=== PATIENT | male | born 1950 | race Caucasian/White ===

== ENCOUNTER 2018-06-20 12:31 | Outpatient (CLI) | payer MEDICARE, OTHER, SELFPAY ==
[2018-06-21 10:23] LABS: PSA, Diagnostic 0.4 ng/ml (0-4.5)
== END 2018-06-20 12:51 ==
PROVIDERS: PCP Family Medicine; Visit Provider Urology
DX: R39.198 Other difficulties with micturition (principal)
CPT/HCPCS: 36415; 84153

== ENCOUNTER 2018-09-20 01:23 | Outpatient (CLI) | payer MEDICARE, OTHER, SELFPAY ==
--- NOTE | 2018-09-20 15:40 | DI.US_ITS ---
SYMPTOM/DIAGNOSIS: MICROHEMATURIA, R31.29 RENAL ULTRASOUND: The kidneys are normal in size and show normal parenchymal thickness and echogenicity. No hydronephrosis is seen. There is a 3.5 by 4.1 by 3.4 cm.,exophytic cyst seen at the upper pole of the right kidney. No calcifications or solid masses are seen in the kidneys. In the bladder, there is a 5.6 by 2.2 by 2.5 cm. mass on the left posterior wall which shows increased vascularity. The prevoid bladder volume measures 212 cc's. There is a 62 cc. postvoid residual. Both ureteral jets were visualized. IMPRESSION: Vascular mass on the left posterior bladder wall. Biopsy is recommended for further evaluation.
[2018-09-20 15:58] LABS: Anion Gap 10.2 mmol/L (3-11); BUN 13 mg/dL (7-18); CO2 26.8 mmol/L (21.0-32.0); CREATININE 1.11 mg/dL (0.70-1.30); Calcium 8.9 mg/dL (8.5-10.1); Chloride 101 mmol/L (98-107); Glucose 109 mg/dL (70-100); Potassium 4.2 mmol/L (3.5-5.1); Sodium 138 mmol/L (136-145)
== END 2018-09-20 01:43 ==
PROVIDERS: PCP Family Medicine; Visit Provider Urology
DX: R31.29 Other microscopic hematuria (principal); N28.1 Cyst of kidney, acquired; N32.9 Bladder disorder, unspecified
CPT/HCPCS: 36415; 76770; 80048

== ENCOUNTER 2018-12-15 00:09 | Outpatient (CLI) | payer MEDICARE, OTHER, SELFPAY ==
[2018-12-15 10:12] LABS: Abs Immature Grans 0.06 k/cumm (0.0-0.09); Absolute Basophil Count 0.02 k/cumm (0.0-0.2); Absolute Eosinophil Count 0.32 k/cumm (0.0-0.7); Absolute Lymphocyte Count 1.43 k/cumm (1.2-3.4); Absolute Monocyte Count 0.96 k/cumm (0.11-0.7); Absolute Neutrophil Count 6.96 k/cumm (1.2-6.7); Basophils % 0.2; Eosinophils % 3.3; HCT 35.5 % (40.0-50.0); Immature Grans % 0.6; Lymphocytes % 14.7; Mean Corp. HGB Concentration 33.8 g/dL (32.0-36.0); Mean Corpuscular Hemoglobin 32.3 pg (27.0-33.0); Mean Corpuscular Volume 95.7 fL (80-95); Mean Platelet Volume 9.3 fL (8.0-11.0); Monocytes % 9.8; Neutrophils % 71.4; Platelet Count 223 x1000/uL (130-400); RBC 3.71 m/cumm (4.50-6.00); White Blood Cell Count 9.75 k/cumm (4.4-10.8)
[2018-12-15 11:15] LABS: ALT 16 U/L (12-78); AST 14 U/L (15-37); Albumin 3.5 g/dL (3.4-5.0); Alkaline Phosphatase 64 U/L (46-116); Anion Gap 6.2 mmol/L (3-11); BUN 30 mg/dL (7-18); Bilirubin, Total 0.4 mg/dL (0.2-1.0); CO2 28.8 mmol/L (21.0-32.0); CREATININE 2.15 mg/dL (0.70-1.30); Calcium 9.3 mg/dL (8.5-10.1); Chloride 102 mmol/L (98-107); Estimated GFR 30.72 (mL/min/1.73m2); Glucose 120 mg/dL (70-100); Magnesium 1.9 mg/dL (1.8-2.4); Potassium 4.9 mmol/L (3.5-5.1); Sodium 137 mmol/L (136-145); Total Protein 6.8 g/dL (6.4-8.2)
== END 2018-12-15 00:29 ==
PROVIDERS: PCP Family Medicine; Visit Provider Internal Medicine
DX: C79.10 Secondary malignant neoplasm of unspecified urinary organs (principal)
CPT/HCPCS: 36415; 80053; 83735; 85025

== ENCOUNTER 2018-12-31 12:03 | Outpatient (CLI) | payer MEDICARE, OTHER, SELFPAY ==
[2018-12-31 12:23] LABS: Abs Immature Grans 0.05 k/cumm (0.0-0.09); Absolute Basophil Count 0.02 k/cumm (0.0-0.2); Absolute Eosinophil Count 0.43 k/cumm (0.0-0.7); Absolute Lymphocyte Count 1.43 k/cumm (1.2-3.4); Absolute Monocyte Count 0.91 k/cumm (0.11-0.7); Absolute Neutrophil Count 5.78 k/cumm (1.2-6.7); Basophils % 0.2; HCT 34.9 % (40.0-50.0); HGB 11.6 g/dL (13.5-17.5); Immature Grans % 0.6; Lymphocytes % 16.6; Mean Corp. HGB Concentration 33.2 g/dL (32.0-36.0); Mean Corpuscular Volume 96.1 fL (80-95); Monocytes % 10.6; Platelet Count 242 x1000/uL (130-400); RBC 3.63 m/cumm (4.50-6.00); RBC Distribution Width 13.2 % (11.8-14.1); White Blood Cell Count 8.62 k/cumm (4.4-10.8)
[2018-12-31 12:59] LABS: ALT 18 U/L (12-78); AST 11 U/L (15-37); Albumin 3.5 g/dL (3.4-5.0); Alkaline Phosphatase 62 U/L (46-116); Anion Gap 8.2 mmol/L (3-11); BUN 23 mg/dL (7-18); Bilirubin, Total 0.4 mg/dL (0.2-1.0); CO2 29.8 mmol/L (21.0-32.0); CREATININE 1.89 mg/dL (0.70-1.30); Chloride 99 mmol/L (98-107); Estimated GFR 35.65 (mL/min/1.73m2); FREE T4 1.12 ng/dL (0.76-1.46); Glucose 115 mg/dL (70-100); Potassium 4.4 mmol/L (3.5-5.1); Sodium 137 mmol/L (136-145); TSH 7.47 uIU/mL (0.358-3.74); Total Protein 7.2 g/dL (6.4-8.2)
--- NOTE | 2018-12-31 14:00 | DI.US_ITS ---
SYMPTOMS/DIAGNOSIS: SWOLLEN LEG, M79.89, METASTATIC UROTHELIAL CARCINOMA, C79.10, ? DVT RIGHT LEG ULTRASOUND: Soft tissue swelling is noted. There is no evidence of DVT. LEFT LEG ULTRASOUND: There is soft tissue swelling and no evidence of DVT.
== END 2018-12-31 12:23 ==
PROVIDERS: PCP Family Medicine; Visit Provider Internal Medicine
DX: C79.10 Secondary malignant neoplasm of unspecified urinary organs (principal); M79.89 Other specified soft tissue disorders; Z79.899 Other long term (current) drug therapy
CPT/HCPCS: 36415; 80053; 84439; 84443; 85025; 93970

== ENCOUNTER 2019-01-09 00:18 | Outpatient (CLI) | payer MEDICARE, OTHER, SELFPAY ==
--- NOTE | 2019-01-09 10:30 | MERGE_ITS ---
*[facility]* *[facility]* [address] [place] [address] Date of study: 01/09/2019 Transthoracic Echocardiography M-mode, complete 2D, complete spectral Doppler, and color Doppler *STUDY CONCLUSIONS* Summary: 1. Left ventricle: The cavity size was normal. Systolic function was normal. The estimated ejection fraction was 60-65%. Some parameters suggest diastolic dysfunction. There was no evidence of elevated ventricular filling pressure by Doppler parameters. 2. Aortic valve: There was very mild stenosis. Peak velocity (S): 1.9m/sec. Mean gradient (S): 8mm Hg. VTI ratio of LVOT to aortic valve: 0.49. Valve area (VTI): 1.6cm^2. 3. Mitral valve: There was mild regurgitation. 4. Left atrium: The atrium was mildly dilated. 5. Right ventricle: The cavity size was normal. Wall thickness was normal. Systolic function was normal. 6. Right atrium: The atrium was mildly dilated. 7. Atrial septum: No defect or patent foramen ovale was identified. 8. Pulmonary arteries: Pulmonary systolic pressure was in the range of 30mm Hg to 40mm Hg. 9. Inferior vena cava: The vessel was patent and normal in size. The respirophasic diameter changes were in the normal range (greater than or equal to 50%), consistent with normal central venous pressure. *PATIENT PRESENTATION* Height: 167.6cm ((66in) ) S/D Pressure: 114 / 63 Weight: 96.6kg ((212.6lb) ) BSA: 2.16m^2 Test start time: 10:30 AM. Test stop time: 11:30 AM. 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 This study was interpreted by [facility]. Pertinent images and digital data are archived for permanent storage and are available for subsequent review. No prior study was available for comparison. Study status: Routine. Transthoracic echocardiography. M-mode, complete 2D, complete spectral Doppler, and color Doppler. A Transthoracic Echocardiogram was performed. Scanning was performed from the parasternal, apical, subcostal, and suprasternal notch acoustic windows. Images were obtained using an [id number] cardiac ultrasound machine. Image quality was adequate. Study completion: The patient tolerated the procedure well. History: PMH: Systolic CHF i50.20 *CARDIAC ANATOMY* Left ventricle: The cavity size was normal. Systolic function was normal. The estimated ejection fraction was 60-65%. The tissue Doppler parameters were normal. Some parameters suggest diastolic dysfunction. There was no evidence of elevated ventricular filling pressure by Doppler parameters. Aortic valve: Trileaflet. Doppler: There was very mild stenosis. There was no regurgitation. VTI ratio of LVOT to aortic valve: 0.49. Valve area (VTI): 1.6cm^2. Indexed valve area (VTI): 0.7cm^2/m^2. Peak velocity ratio of LVOT to aortic valve: 0.52. Valve area (Vmax): 1.7cm^2. Indexed valve area (Vmax): 0.8cm^2/m^2. Mean velocity ratio of LVOT to aortic valve: 0.45. Valve area (Vmean): 1.5cm^2. Indexed valve area (Vmean): 0.7cm^2/m^2. Mean gradient (S): 8mm Hg. Peak gradient (S): 14.2mm Hg. Aorta: Aortic root: The aortic root was normal in size. Ascending aorta: The ascending aorta was at upper normal limits. Mitral valve: Doppler: There was no evidence for stenosis. There was mild regurgitation. Valve area by pressure half-time: 3.4cm^2. Indexed valve area by pressure half-time: 1.6cm^2/m^2. Peak gradient (D): 3.1mm Hg. Left atrium: The atrium was mildly dilated. Atrial septum: No defect or patent foramen ovale was identified. Right ventricle: The cavity size was normal. Wall thickness was normal. Systolic function was normal. Pulmonic valve: Doppler: There was no evidence for stenosis. There was mild regurgitation. Peak gradient (S): 4.3mm Hg. Tricuspid valve: Doppler: There was mild regurgitation. Pulmonary artery: Poorly visualized. Pulmonary systolic pressure was in the range of 30mm Hg to 40mm Hg. Right atrium: The atrium was mildly dilated. Pericardium: There was no pericardial effusion. Systemic veins: Inferior vena cava: Well visualized. The vessel was patent and normal in size. The respirophasic diameter changes were in the normal range (greater than or equal to 50%), consistent with normal central venous pressure. Baseline ECG: Normal sinus rhythm. Measurements Left ventricle Value Reference LV ID, ED, PLAX 5.4 cm 3.5 - 6.0 LV ID, ES, PLAX 3.6 cm 2.1 - 4.0 LV PW thickness, ED, PLAX 0.9 cm LV end-diastolic volume, 1-p A2C 117 ml LV ejection fraction, 1-p A2C 65 % LV end-diastolic volume, 1-p A4C 117 ml LV ejection fraction, 1-p A4C 60 % LV e', lateral 0.094 m/sec LV E/e', lateral 9 LV e', medial 0.1 m/sec LV E/e', medial 9 LV e', average 0.097 m/sec LV E/e', average 9 Ventricular septum Value Reference IVS thickness, ED, PLAX 0.8 cm LVOT Value Reference LVOT ID, A-P 2.0 cm LVOT area 3.2 cm^2 LVOT peak velocity, S 0.98 m/sec LVOT mean velocity, S 0.61 m/sec LVOT VTI, S 19.9 cm LVOT peak gradient, S 3.8 mm Hg LVOT mean gradient, S 1.8 mm Hg Stroke volume (SV), LVOT DP 64 ml Stroke index (SV/bsa), LVOT DP 30 ml/m^2 Aortic valve Value Reference Aortic valve peak velocity, S 1.9 m/sec Aortic valve mean velocity, S 1.35 m/sec Aortic valve VTI, S 41.0 cm Aortic mean gradient, S 8 mm Hg Aortic peak gradient, S 14.2 mm Hg VTI ratio, LVOT/AV 0.49 Aortic valve area, VTI 1.6 cm^2 Velocity ratio, peak, LVOT/AV 0.52 Aortic valve area, peak velocity 1.7 cm^2 Velocity ratio, mean, LVOT/AV 0.45 Aortic valve area, mean velocity 1.5 cm^2 Aortic valve area/bsa, mean velocity 0.7 cm^2/m^2 Aorta Value Reference Aortic root ID, ED 3.4 cm Ascending aorta ID, A-P, S 3.5 cm Left atrium Value Reference LA ID, A-P, ES 3.6 cm LA ID/bsa, A-P 1.7 cm/m^2 <=2.2 LA area, ES, A4C (H) 24.5 cm^2 8.8 - 23.4 LA volume/bsa, ES, 1-p A4C 45 ml/m^2 LA/aortic root ratio 1.05 Mitral valve Value Reference Mitral E-wave peak velocity 0.88 m/sec Mitral A-wave peak velocity 1.19 m/sec Mitral deceleration time 222 ms 150 - 230 Mitral pressure half-time 64 ms Mitral peak gradient, D 3.1 mm Hg Mitral E/A ratio, peak 0.74 Mitral valve area, PHT, DP 3.4 cm^2 Tricuspid valve Value Reference Tricuspid regurg peak velocity 2.8 m/sec Tricuspid peak RV-RA gradient 32.2 mm Hg Right atrium Value Reference RA area, ES, A4C (H) 22.5 cm^2 8.3 - 19.5 Pulmonic valve Value Reference Pulmonic peak gradient, S 4.3 mm Hg Legend: (L) and (H) an values outside specified reference range. I have personally reviewed the images and have reviewed and edited the reported findings. Electronically signed by Ayo Nova MD 01/09/2019 17:27
== END 2019-01-09 00:38 ==
PROVIDERS: PCP Family Medicine; Visit Provider Internal Medicine
DX: I50.20 Unspecified systolic (congestive) heart failure (principal); I51.7 Cardiomegaly; I35.0 Nonrheumatic aortic (valve) stenosis
CPT/HCPCS: 93306

== ENCOUNTER 2019-01-21 10:15 | Outpatient (CLI) | payer MEDICARE, OTHER, SELFPAY ==
[2019-01-21 10:49] LABS: Abs Immature Grans 0.06 k/cumm (0.0-0.09); Absolute Basophil Count 0.02 k/cumm (0.0-0.2); Absolute Eosinophil Count 0.42 k/cumm (0.0-0.7); Absolute Lymphocyte Count 1.26 k/cumm (1.2-3.4); Absolute Monocyte Count 0.84 k/cumm (0.11-0.7); Absolute Neutrophil Count 6.45 k/cumm (1.2-6.7); Basophils % 0.2; Eosinophils % 4.6; HCT 35.5 % (40.0-50.0); HGB 11.4 g/dL (13.5-17.5); Immature Grans % 0.7; Lymphocytes % 13.9; Mean Corp. HGB Concentration 32.1 g/dL (32.0-36.0); Mean Corpuscular Hemoglobin 31.1 pg (27.0-33.0); Mean Corpuscular Volume 96.7 fL (80-95); Monocytes % 9.3; Neutrophils % 71.3; Platelet Count 217 x1000/uL (130-400); RBC 3.67 m/cumm (4.50-6.00); RBC Distribution Width 13.3 % (11.8-14.1); White Blood Cell Count 9.05 k/cumm (4.4-10.8)
[2019-01-21 11:57] LABS: ALT 16 U/L (12-78); AST 11 U/L (15-37); Albumin 3.5 g/dL (3.4-5.0); Alkaline Phosphatase 58 U/L (46-116); Anion Gap 8.5 mmol/L (3-11); BUN 19 mg/dL (7-18); Bilirubin, Total 0.4 mg/dL (0.2-1.0); CO2 27.5 mmol/L (21.0-32.0); CREATININE 1.51 mg/dL (0.70-1.30); Calcium 9.1 mg/dL (8.5-10.1); Chloride 100 mmol/L (98-107); Estimated GFR 46.18 (mL/min/1.73m2); FREE T4 1.18 ng/dL (0.76-1.46); Glucose 110 mg/dL (70-100); Potassium 4.6 mmol/L (3.5-5.1); Sodium 136 mmol/L (136-145); TSH 5.42 uIU/mL (0.358-3.74); Total Protein 7.1 g/dL (6.4-8.2)
== END 2019-01-21 10:35 ==
PROVIDERS: PCP Family Medicine; Visit Provider Internal Medicine
DX: Z79.899 Other long term (current) drug therapy (principal); C79.10 Secondary malignant neoplasm of unspecified urinary organs
CPT/HCPCS: 36415; 80053; 84439; 84443; 85025

== ENCOUNTER 2019-01-29 07:06 | Day surgery (SDC) | payer MEDICARE, OTHER, SELFPAY ==
--- NOTE | 2019-01-29 06:40 | HPE_ITS ---
Date of service: 01/29/19 Time of Service: 08:48 Assessment and Plan (1) Bladder cancer: Current visit: No Status: Acute A\\ Metastatic Bladder cancer. Patient starting Chemotherapy P\\ Medi-port placement right or left subclavian vein. Risks, benefits, complications were reviewed with him. Complications include but are not limited to bleeding, pain, seroma, hematoma, malfunction, pneumothorax, wound dehiscence and injury to vessels. Questions were entertained and answered to his satisfaction and he wishes to proceed. No guarantees were given or implied. Qualifiers: Bladder location: unspecified site Qualified Code(s): C67.9 - Malignant neoplasm of bladder, unspecified History of Present Illness Narrative: Mr. Miller is a 68-year-old gentleman who was diagnosed with bladder cancer. He underwent a TURBT on October 18, 2018 and pathology was consistent with high-grade papillary urothelial carcinoma with extensive squamous differentiation invasive into muscularis propria and focally suspicious for pericystic soft tissue invasion. He also has metastatic disease to his back and lungs and has been short of breath. He is now on oxygen. He has started chemotherapy but they are having a hard time drawing blood and we have been asked by his oncologist to place a port. Review of Systems Constitutional Denies fever(s) Cardiovascular Denies chest pain, Denies chest pain at rest, Denies rapid heart rate, Denies palpitations, Denies dyspnea and Denies dyspnea on exertion Respiratory Denies cough, Denies dyspnea and Denies dyspnea on exertion Endocrine Denies palpitations [facility] Medical History Hx of congestive heart failure (Acute) Metastatic urothelial carcinoma (Acute) Arthritis of knee Arthritis of shoulder region, left, degenerative Back pain DDD (degenerative disc disease), lumbosacral GERD (gastroesophageal reflux disease) Headache Hypertension Osteoarthritis of spine with radiculopathy, lumbar region Sciatica Spinal stenosis of lumbar region Surgical History History of transurethral destruction of bladder lesion (Acute) Hx of nephrostomy (Acute) Vasectomy Family History Mother Blood clots in brain Father Heart disease Sister Cancer Sister No problems noted. Sister No problems noted. Sister No problems noted. Sister No problems noted. Brother No problems noted. Brother No problems noted. Brother No problems noted. Brother No problems noted. Brother No problems noted. Daughter No problems noted. Daughter No problems noted. Daughter No problems noted. Social History Smoking/Tobacco Use Status: Current every day Tobacco Type: cigarettes Tobacco: How many years used: 50 Alcohol Intake: never Drug use: Never Substance use type: does not use Do you feel safe at home: Yes Do you feel safe in your relationship?: Yes Meds Home Medications Medication Instructions Recorded Confirmed Type diclofenac sodium 50 mg PO TID 10/22/15 01/29/19 History lisinopril 40 mg PO DAILY 10/22/15 01/29/19 History metoprolol succinate 50 mg PO BID 10/22/15 01/29/19 History aspirin 325 mg PO DAILY 01/15/18 01/29/19 History oxycodone 15 mg PO QID PRN 01/15/18 01/29/19 History gabapentin 1 tab PO TID 30 Days #90 tab 02/06/18 01/29/19 Rx fentanyl 1 patch TRANSDERMAL Q72H 01/27/19 01/29/19 History omeprazole 40 mg PO DAILY 01/27/19 01/29/19 History prochlorperazine maleate 10 mg PO Q6H PRN 01/27/19 01/29/19 History sennosides-docusate sodium 1 tab PO BID PRN 01/27/19 01/29/19 History [Senexon-S] Allergies Allergy/AdvReac Type Severity Reaction Status Date / Time lisinopril AdvReac Unknown Cough Unverified 01/29/19 07:22 Exam Const General: cooperative, comfortable and no acute distress Resp Effort & Inspection: normal respiratory effort Auscultation: clear to auscultation bilaterally Cardio Rate: regular rate Rhythm: regular rhythm
--- NOTE | 2019-01-29 06:40 | W.PM.OP ---
Date of service: 01/29/19 Time of Service: 09:46 Operative Note DATE OF PROCEDURE: 01/29/19 PRE-OP DIAGNOSIS: Bladder Cancer POST-OP DIAGNOSIS: same PROCEDURE: Attempted left and right Subclavian vein Medi-port placement SURGEON: Yanci Iqbal ANESTHESIA: other (General/ ASA /) PATHOLOGY: none sent COMPLICATIONS: None Patient was transported to: same day Patient's condition: stable Indications: 68 year old with Bladder Cancer who will be getting chemotherapy treatments. Medi-port was recommended. Risks, benefits and complications were reviewed and he wished to proceed. No guarantees were given or implied. Findings: Thick and deep calvicles. Resistance to the wire on the left. Procedure Description: After informed consent was obtained the patient was taken to the operating room placed in the supine position. Monitors were applied and he was placed under MAC sedation. A timeout was done in the patient's name, date of , procedure to be done, site, antibiotic prophylaxis, DVT prophylaxis were reviewed. Fire risk was assessed. The right and left chest were prepped and draped in a sterile surgical fashion. Next 1% lidocaine mixed with half percent Marcaine with epinephrine was injected below the left clavicle. Using the finder needle after a few attempts the subclavian vein was cannulated with a needle. On 3 different attempts I could not get the wire to easily pass without resistance. After 3 attempts on the left side I tried to cannulate the right subclavian vein on several occasions and was unable to do so. The procedure was aborted and the patient was taken back to same-day surgery. A chest x-ray was ordered to make sure that I did not cause a pneumothorax. The chest x-ray is pending at this time. Sponge, needle and sharp count was correct at the end of the case.
--- NOTE | 2019-01-29 06:53 | W.PM.DSUDISC ---
Discharge Plan Disposition Patient Disposition: HOME Condition: Good Discharge Details Reason For Visit: Medi-port placement Attending Provider: Yanci Iqbal Primary Care Provider: Delonte Turpin Home Meds and New Rx's Prescriptions: Continued aspirin 325 MG tablet 325 mg PO DAILY RF: 0 oxycodone 10 MG tablet 15 mg PO QID PRNRF: 0 gabapentin 600 MG tablet 1 tab PO TID 30 Days Qty: 90 RF: 3 metoprolol succinate 50 MG tablet extended release 24 hr 50 mg PO BID RF: 0 diclofenac sodium 50 MG tablet,delayed release (DR/EC) 50 mg PO TID RF: 0 lisinopril 40 MG tablet 40 mg PO DAILY RF: 0 sennosides-docusate sodium [Senexon-S] 8.6-50 mg Tablet 1 tab PO BID PRNRF: 0 prochlorperazine maleate 10 mg Tablet 10 mg PO Q6H PRNRF: 0 omeprazole 40 mg Capsule,Delayed Release(Dr/Ec) 40 mg PO DAILY RF: 0 fentanyl 25 mcg/hr Patch 72 Hour 1 patch TRANSDERMAL Q72H RF: 0 Discharge Instructions Stand Alone Forms: DSU Post op Instructions, Kyler Lawrence (DSU) Activity:: Activity as Tolerated Diet:: As Tolerated Discharge Orders Discharge Orders: Discharge Order (Routine); Ordered 01/29/19 Ordered By: Yanci Iqbal DS: Diagnosis Discharge Diagnosis (1) Bladder cancer: Status: Acute
[2019-01-29 07:31] VITALS: BP 119/62; PULSE 82; RESP 20; TEMP 36.3; O2SAT 95
[2019-01-29] MEDS: Lactated Ringers 1,000 ML 80 ML IV (07:50)
[2019-01-29] MEDS: ceFAZolin 2 GM/50 ML BAG IVPB (09:05)
[2019-01-29] MEDS: Lidocaine 2% Multi-Dose 50 ML VIAL (09:12)
--- NOTE | 2019-01-29 10:08 | DI.RAD_ITS ---
SYMPTOM/DIAGNOSIS: ATTEMPTED PORT PLACEMENT, ? PNEUMOTHORAX PORTABLE AP CHEST: Heart size and pulmonary vasculature are within normal limits. The lungs are clear. No pneumothorax is identified. No effusions or infiltrates are present. IMPRESSION: No acute pulmonary process. No evidence of a pneumothorax.
[2019-01-29 10:25] VITALS: BP 135/69; PULSE 75; RESP 18; TEMP 36; O2SAT 97
== END 2019-01-29 11:02 | disposition home or self-care (01) ==
LOC: SUR 07:06
PROVIDERS: PCP Family Medicine; Visit Provider Surgery
PROC: (CPT 36561; principal; 2019-01-29 08:30)
DX: C67.9 Malignant neoplasm of bladder, unspecified (principal); Z53.8 Procedure and treatment not carried out for other reasons; I10 Essential (primary) hypertension; K21.9 Gastro-esophageal reflux disease without esophagitis
CPT/HCPCS: 36561; NC; 71045; J0690; J2250; J3010

== ENCOUNTER 2019-02-11 10:30 | Outpatient (CLI) | payer MEDICARE, OTHER, SELFPAY ==
[2019-02-11 10:54] LABS: Abs Immature Grans 0.05 k/cumm (0.0-0.09); Absolute Basophil Count 0.02 k/cumm (0.0-0.2); Absolute Eosinophil Count 0.44 k/cumm (0.0-0.7); Absolute Lymphocyte Count 1.24 k/cumm (1.2-3.4); Absolute Monocyte Count 0.99 k/cumm (0.11-0.7); Absolute Neutrophil Count 6.21 k/cumm (1.2-6.7); Basophils % 0.2; Eosinophils % 4.9; HCT 35.6 % (40.0-50.0); HGB 11.8 g/dL (13.5-17.5); Immature Grans % 0.6; Lymphocytes % 13.9; Mean Corp. HGB Concentration 33.1 g/dL (32.0-36.0); Mean Corpuscular Hemoglobin 31.8 pg (27.0-33.0); Mean Platelet Volume 9.2 fL (8.0-11.0); Monocytes % 11.1; Neutrophils % 69.3; Platelet Count 230 x1000/uL (130-400); RBC 3.71 m/cumm (4.50-6.00); RBC Distribution Width 13.4 % (11.8-14.1); White Blood Cell Count 8.95 k/cumm (4.4-10.8)
[2019-02-11 11:19] LABS: ALT 19 U/L (12-78); AST 13 U/L (15-37); Albumin 3.5 g/dL (3.4-5.0); Alkaline Phosphatase 57 U/L (46-116); Anion Gap 9.8 mmol/L (3-11); BUN 14 mg/dL (7-18); Bilirubin, Total 0.3 mg/dL (0.2-1.0); CO2 25.2 mmol/L (21.0-32.0); CREATININE 1.36 mg/dL (0.70-1.30); Calcium 9.1 mg/dL (8.5-10.1); Chloride 101 mmol/L (98-107); Estimated GFR 52.11 (mL/min/1.73m2); FREE T4 1.28 ng/dL (0.76-1.46); Glucose 119 mg/dL (70-100); Potassium 4.6 mmol/L (3.5-5.1); Sodium 136 mmol/L (136-145); TSH 5.27 uIU/mL (0.358-3.74); Total Protein 7.3 g/dL (6.4-8.2)
== END 2019-02-11 10:50 ==
PROVIDERS: PCP Family Medicine; Visit Provider Internal Medicine
DX: C79.10 Secondary malignant neoplasm of unspecified urinary organs (principal); Z79.899 Other long term (current) drug therapy
CPT/HCPCS: 36415; 80053; 84439; 84443; 85025

== ENCOUNTER 2019-03-04 10:18 | Outpatient (CLI) | payer MEDICARE, OTHER, SELFPAY ==
[2019-03-04 11:06] LABS: Abs Immature Grans 0.06 k/cumm (0.0-0.09); Absolute Basophil Count 0.02 k/cumm (0.0-0.2); Absolute Lymphocyte Count 1.36 k/cumm (1.2-3.4); Absolute Monocyte Count 0.96 k/cumm (0.11-0.7); Absolute Neutrophil Count 6.38 k/cumm (1.2-6.7); Basophils % 0.2; Eosinophils % 4.4; HCT 37.2 % (40.0-50.0); HGB 12.3 g/dL (13.5-17.5); Immature Grans % 0.7; Lymphocytes % 14.8; Mean Corp. HGB Concentration 33.1 g/dL (32.0-36.0); Mean Corpuscular Hemoglobin 31.5 pg (27.0-33.0); Mean Corpuscular Volume 95.1 fL (80-95); Mean Platelet Volume 9.6 fL (8.0-11.0); Monocytes % 10.5; Neutrophils % 69.4; Platelet Count 248 x1000/uL (130-400); RBC 3.91 m/cumm (4.50-6.00); RBC Distribution Width 13.5 % (11.8-14.1); White Blood Cell Count 9.18 k/cumm (4.4-10.8)
[2019-03-04 12:49] LABS: ALT 20 U/L (12-78); AST 15 U/L (15-37); Albumin 3.6 g/dL (3.4-5.0); Alkaline Phosphatase 61 U/L (46-116); Anion Gap 7.5 mmol/L (3-11); BUN 20 mg/dL (7-18); Bilirubin, Total 0.3 mg/dL (0.2-1.0); CO2 26.5 mmol/L (21.0-32.0); CREATININE 1.27 mg/dL (0.70-1.30); Chloride 103 mmol/L (98-107); FREE T4 1.24 ng/dL (0.76-1.46); Glucose 110 mg/dL (70-100); Potassium 4.6 mmol/L (3.5-5.1); Sodium 137 mmol/L (136-145); TSH 5.02 uIU/mL (0.358-3.74); Total Protein 7.2 g/dL (6.4-8.2)
== END 2019-03-04 10:38 ==
PROVIDERS: PCP Family Medicine; Visit Provider Internal Medicine
DX: C79.10 Secondary malignant neoplasm of unspecified urinary organs (principal); Z79.899 Other long term (current) drug therapy
CPT/HCPCS: 36415; 80053; 84439; 84443; 85025

== ENCOUNTER 2019-03-25 11:26 | Outpatient (CLI) | payer MEDICARE, OTHER, SELFPAY ==
[2019-03-25 11:49] LABS: Abs Immature Grans 0.04 k/cumm (0.0-0.09); Absolute Basophil Count 0.02 k/cumm (0.0-0.2); Absolute Lymphocyte Count 1.28 k/cumm (1.2-3.4); Absolute Monocyte Count 0.73 k/cumm (0.11-0.7); Absolute Neutrophil Count 5.93 k/cumm (1.2-6.7); Basophils % 0.2; Eosinophils % 4.8; HCT 35.4 % (40.0-50.0); HGB 11.9 g/dL (13.5-17.5); Immature Grans % 0.5; Lymphocytes % 15.2; Mean Corp. HGB Concentration 33.6 g/dL (32.0-36.0); Mean Corpuscular Hemoglobin 31.7 pg (27.0-33.0); Mean Corpuscular Volume 94.4 fL (80-95); Mean Platelet Volume 9.2 fL (8.0-11.0); Monocytes % 8.7; Neutrophils % 70.6; Platelet Count 220 x1000/uL (130-400); RBC 3.75 m/cumm (4.50-6.00); RBC Distribution Width 13.6 % (11.8-14.1)
[2019-03-25 12:14] LABS: ALT 16 U/L (12-78); AST 13 U/L (15-37); Albumin 3.6 g/dL (3.4-5.0); Alkaline Phosphatase 68 U/L (46-116); Anion Gap 12.1 mmol/L (3-11); BUN 17 mg/dL (7-18); Bilirubin, Total 0.4 mg/dL (0.2-1.0); CO2 24.9 mmol/L (21.0-32.0); CREATININE 1.32 mg/dL (0.70-1.30); Calcium 8.9 mg/dL (8.5-10.1); Chloride 103 mmol/L (98-107); Estimated GFR 53.94 (mL/min/1.73m2); FREE T4 1.22 ng/dL (0.76-1.46); Glucose 132 mg/dL (70-100); Potassium 4.2 mmol/L (3.5-5.1); Sodium 140 mmol/L (136-145); TSH 3.38 uIU/mL (0.358-3.74); Total Protein 7.3 g/dL (6.4-8.2)
== END 2019-03-25 11:46 ==
PROVIDERS: PCP Family Medicine; Visit Provider Internal Medicine
DX: Z79.899 Other long term (current) drug therapy (principal); C79.10 Secondary malignant neoplasm of unspecified urinary organs
CPT/HCPCS: 36415; 80053; 84439; 84443; 85025

== ENCOUNTER 2019-04-15 07:01 | Outpatient (CLI) | payer MEDICARE, OTHER, SELFPAY ==
[2019-04-15 07:30] LABS: Abs Immature Grans 0.07 k/cumm (0.0-0.09); Absolute Eosinophil Count 0.34 k/cumm (0.0-0.7); Absolute Lymphocyte Count 0.85 k/cumm (1.2-3.4); Basophils % 0.1; Eosinophils % 2.3; HGB 12.4 g/dL (13.5-17.5); Immature Grans % 0.5; Lymphocytes % 5.8; Mean Corp. HGB Concentration 33.5 g/dL (32.0-36.0); Mean Corpuscular Hemoglobin 31.7 pg (27.0-33.0); Mean Corpuscular Volume 94.6 fL (80-95); Monocytes % 8.2; Neutrophils % 83.1; Platelet Count 216 x1000/uL (130-400); RBC 3.91 m/cumm (4.50-6.00); RBC Distribution Width 13.5 % (11.8-14.1); White Blood Cell Count 14.58 k/cumm (4.4-10.8)
[2019-04-15 07:36] LABS: Absolute Basophil Count 0.01 k/cumm (0.0-0.2); Absolute Neutrophil Count 12.12 k/cumm (1.2-6.7)
[2019-04-15 07:53] LABS: ALT 18 U/L (12-78); AST 13 U/L (15-37); Albumin 3.7 g/dL (3.4-5.0); Alkaline Phosphatase 77 U/L (46-116); Anion Gap 8.3 mmol/L (3-11); BUN 19 mg/dL (7-18); Bilirubin, Total 0.5 mg/dL (0.2-1.0); CO2 28.7 mmol/L (21.0-32.0); CREATININE 1.28 mg/dL (0.70-1.30); Calcium 9.2 mg/dL (8.5-10.1); Chloride 102 mmol/L (98-107); Estimated GFR 55.89 (mL/min/1.73m2); FREE T4 1.24 ng/dL (0.76-1.46); Glucose 128 mg/dL (70-100); Potassium 4.4 mmol/L (3.5-5.1); Sodium 139 mmol/L (136-145); TSH 2.76 uIU/mL (0.358-3.74); Total Protein 7.7 g/dL (6.4-8.2)
== END 2019-04-15 07:21 ==
PROVIDERS: PCP Family Medicine; Visit Provider Internal Medicine
DX: C79.10 Secondary malignant neoplasm of unspecified urinary organs (principal); Z79.899 Other long term (current) drug therapy
CPT/HCPCS: 36415; 80053; 84439; 84443; 85025

== ENCOUNTER 2019-04-15 17:04 | Emergency (ER) | payer MEDICARE, OTHER, SELFPAY ==
[2019-04-15 17:10] VITALS: BP 115/59; PULSE 88; RESP 20; TEMP 37.8; O2SAT 96
[2019-04-15 17:11] VITALS: O2SAT 97
[2019-04-15 17:16] VITALS: BP 109/66; PULSE 92; O2SAT 97
[2019-04-15 17:39] LABS: Bilirubin Negative (Negative); Blood Moderate (Negative); Clarity Cloudy (Clear); Glucose Negative (Negative); Ketones Negative (Negative); Leukocyte Esterase Large (Negative); Nitrite Positive (Negative); Specific Gravity 1.015 (1.005-1.025)
[2019-04-15 17:51] LABS: Bacteria Many HPF (Negative); C & S Indicated? Yes; Casts Negative LPF (Negative); Crystals Negative HPF (Negative); Epithelial Cells Few HPF (Negative); Mucus Negative (Negative); Other Cells Negative (Negative); RBC >50 (0-2); WBC >50 HPF (0-5)
[2019-04-15 17:52] LABS: Abs Immature Grans 0.03 k/cumm (0.0-0.09); Absolute Eosinophil Count 0.12 k/cumm (0.0-0.7); Absolute Lymphocyte Count 1.19 k/cumm (1.2-3.4); Basophils % 0.1; Eosinophils % 0.9; HCT 33.5 % (40.0-50.0); HGB 11.2 g/dL (13.5-17.5); Immature Grans % 0.2; Lymphocytes % 8.6; Mean Corp. HGB Concentration 33.4 g/dL (32.0-36.0); Mean Corpuscular Hemoglobin 31.7 pg (27.0-33.0); Mean Corpuscular Volume 94.9 fL (80-95); Mean Platelet Volume 9.8 fL (8.0-11.0); Monocytes % 8.3; Neutrophils % 81.9; Platelet Count 203 x1000/uL (130-400); RBC 3.53 m/cumm (4.50-6.00); RBC Distribution Width 13.8 % (11.8-14.1); White Blood Cell Count 13.78 k/cumm (4.4-10.8)
[2019-04-15 17:53] LABS: Absolute Basophil Count 0.01 k/cumm (0.0-0.2); Absolute Monocyte Count 1.14 k/cumm (0.11-0.7); Absolute Neutrophil Count 11.29 k/cumm (1.2-6.7)
[2019-04-15] MEDS: Acetaminophen 325 MG TAB 650 MG PO (17:55)
--- NOTE | 2019-04-15 18:06 | DI.RAD_ITS ---
SYMPTOM/DIAGNOSIS: FEVER, ON CHEMO PA AND LATERAL CHEST: The lungs are well expanded and free of infiltrate. The cardiovascular structures are intact. SUMMARY: No evidence of acute cardiopulmonary disease.
[2019-04-15 18:09] LABS: ALT 17 U/L (12-78); AST 10 U/L (15-37); Albumin 3.2 g/dL (3.4-5.0); Alkaline Phosphatase 67 U/L (46-116); Anion Gap 9.7 mmol/L (3-11); BUN 20 mg/dL (7-18); Bilirubin, Total 0.5 mg/dL (0.2-1.0); CO2 26.3 mmol/L (21.0-32.0); CREATININE 1.35 mg/dL (0.70-1.30); Calcium 8.7 mg/dL (8.5-10.1); Chloride 103 mmol/L (98-107); Estimated GFR 52.56 (mL/min/1.73m2); Glucose 124 mg/dL (70-100); Magnesium 1.8 mg/dL (1.8-2.4); Potassium 4.4 mmol/L (3.5-5.1); Sodium 139 mmol/L (136-145); Total Protein 6.9 g/dL (6.4-8.2)
--- NOTE | 2019-04-15 19:01 | DI.VRAD_ITS ---
EXAM: XR Chest, 2 Views EXAM DATE/TIME: 04/15/2019 6:07 PM CLINICAL HISTORY: 68 years old, male; Other: Fever, on chemo TECHNIQUE: Imaging protocol: XR of the chest, 2 views. COMPARISON: CR XR PORTABLE CHEST AP POST LINE 01/29/2019 9:57 AM FINDINGS: Lungs: Unremarkable. No consolidation. Pleural space: Unremarkable. No pleural effusion. No pneumothorax. Heart/Mediastinum: Unremarkable. No cardiomegaly. Bones/joints: Unremarkable. IMPRESSION: No infiltrates or effusions. Dictated and Authenticated by: Graham Aguilar MD. Ordering:HASEEB Telles MD
--- NOTE | 2019-04-15 19:18 | ED.GENADUL_ITS ---
Discharge Plan Disposition Patient Disposition: HOME Condition: Stable Discharge Details Chief Complaint: Fever Clinical Impression: Urinary tract infection Primary Care Provider: Delonte Turpin ED Provider: Ayo Garber Home Meds and New Rx's Prescriptions: New levofloxacin 750 mg tablet 750 mg PO DAILY Qty: 7 RF: 0 No Action oxycodone 10 MG tablet 15 mg PO Q4H PRN PRNRF: 0 metoprolol succinate 50 MG tablet extended release 24 hr 50 mg PO BID RF: 0 diclofenac sodium 50 MG tablet,delayed release (DR/EC) 50 mg PO TID RF: 0 lisinopril 40 MG tablet 40 mg PO DAILY RF: 0 sennosides-docusate sodium [Senexon-S] 8.6-50 mg Tablet 1 tab PO BID PRNRF: 0 prochlorperazine maleate 10 mg Tablet 10 mg PO Q6H PRNRF: 0 tamsulosin 0.4 mg Capsule 0.4 mg PO DAILY RF: 0 amlodipine 10 mg Tablet 10 mg PO DAILY RF: 0 morphine 30 mg Tablet 30 mg PO Q8H PRNRF: 0 esomeprazole magnesium 40 mg Capsule,Delayed Release(Dr/Ec) 40 mg PO DAILY RF: 0 albuterol sulfate 90 mcg/actuation Hfa Aerosol Inhaler 2 puff INHALATION QID PRNRF: 0 finasteride 5 mg Tablet 5 mg PO DAILY RF: 0 Discharge Instructions Additional Instructions: you were found to have a urinary tract infection urology at [facility] did not feel your nephrostomy tube needed to be changed follow up with your primary care provider within a week if you have severe pain, feel more ill or persistent vomit return to the emergency department Discharge Data Discharge Date/Time-TO BE ENTERED AT DEPARTURE: 04/16/19 00:43 Medical Decision Making <Elfego Strauss MD - Last Filed: 04/20/19 11:26> 8:00p --68-year-old male with history of bladder cancer with metastasis, on chemotherapy, status post nephrostomy tube placement on the left, here with fever and dysuria. Patient is febrile. He is not tachycardic and is normo tensive. Consider neutropenic fever versus urinary tract infection/pyelonephritis versus other. Patient also noting that he is having some drainage from around the nephrostomy tube which I think is likely related to the fact that 1 of the valves was in close position. This was opened by nursing. I obtained and reviewed outside hospital records including progress note from Rosalie Gotti 03/25/2019 that confirms pathology consistent with high-grade papillary urothelial carcinoma with extensive squamous differentiation invasive into muscularis propria and focally suspicious for pericystic soft tissue invasion and underwent nephrostomy tube placement 12/25/2018. Labs reviewed and urinalysis consistent with urinary tract infection. Leukocytosis noted. Plan at this time is to perform CT of the abdomen and pelvis to assess for pyelonephritis. Consider also obtaining urine specimen from the percutaneous nephrostomy tube. Signout plan was discussed with Dr. Garber who accepts the patient in signout and will determine final disposition. Medical Records Medical records reviewed: Yes I reviewed the patient's medical records. Lab Data Lab results reviewed: Yes I reviewed the patient's lab results. <Ayo Garber MD - Last Filed: 04/16/19 00:31> pt's ct shows nephrostomy tube in place and no evidence of kidney infection. He remains stable and feels well enough to try and go home and wants to go home. I advised him I would like to discuss his care with urology prior to d/c to see if his nephrostomy tube needs to be changed still waiting for [facility], pt remains stable spoke with Dr. Pa from [facility] who advised nephrostomy tube doesn't need to be changed or addressed if it is draining and he can be managed with either oral or iv abx depending on his clinical status. He remains stable here and has no complaints, hd stable so feel he can be tx'd with oral abx. Will d/c home advised f/u with his oncologist and pcp and return precautions given Imaging Data Radiologic Study: Attestation: I personally reviewed and interpreted this imaging study as follows: Imaging: CT Scan Radiologist's impression: IMPRESSION: 1. Left sided percutaneous nephroureterostomy in place. Urinary bladder mass. Aneurysmal and atherosclerotic infrarenal abdominal aorta, no rupture or leak. 2. There are a few prominent mesenteric lymph nodes, some of them slightly enlarged up to 12 mm in short axis, image 47. HPI <Elfego Strauss MD - Last Filed: 04/20/19 11:26> General Mode of arrival: ambulatory . Date/Time Provider Initiated Documentation: 04/15/19 17:37 . Limitations to Documentation: no limitations . Information obtained by: patient . HPI Narrative: 68-year-old male with history of bladder cancer, on chemotherapy, presents with chief complaint of fever. Fever noticed today. Fever mild to moderate. No modifiers. He has associated fatigue over the past couple days. Patient has a left nephrostomy tube but continues to make urine intermittently. He states that recently when he urinates through his penis he has had some dysuria. Patient denies rash. No cough. Related Data Home Medications Medication Instructions Recorded Confirmed diclofenac sodium 50 mg PO TID 10/22/15 04/15/19 lisinopril 40 mg PO DAILY 10/22/15 04/15/19 metoprolol succinate 50 mg PO BID 10/22/15 04/15/19 oxycodone 15 mg PO Q4H PRN PRN 01/15/18 04/15/19 prochlorperazine maleate 10 mg PO Q6H PRN 01/27/19 04/15/19 sennosides-docusate sodium 1 tab PO BID PRN 01/27/19 04/15/19 [Senexon-S] albuterol sulfate 2 puff INHALATION QID PRN 04/15/19 04/15/19 amlodipine 10 mg PO DAILY 04/15/19 04/15/19 esomeprazole magnesium 40 mg PO DAILY 04/15/19 04/15/19 finasteride 5 mg PO DAILY 04/15/19 04/15/19 morphine 30 mg PO Q8H PRN 04/15/19 04/15/19 tamsulosin 0.4 mg PO DAILY 04/15/19 04/15/19 levofloxacin 750 mg PO DAILY #7 tab 04/16/19 Previous Rx's Medication Instructions Recorded levofloxacin 750 mg PO DAILY #7 tab 04/16/19 Allergies Allergy/AdvReac Type Severity Reaction Status Date / Time lisinopril AdvReac Unknown Cough Unverified 04/15/19 17:17 General Stated Complaint: Fever HELADIO: 3 Review of Systems <Elfego Strauss MD - Last Filed: 04/20/19 11:26> Review of Systems All systems reviewed & are unremarkable except as noted in HPI and below Constitutional Reports fatigue and Reports fever(s) Respiratory Denies cough Genitourinary Reports as per HPI, Denies hematuria, Reports dysuria and Denies flank pain Endocrine Reports fatigue PFSH <Elfego Strauss MD - Last Filed: 04/20/19 11:26> Medical History Arthritis of knee Arthritis of shoulder region, left, degenerative Back pain DDD (degenerative disc disease), lumbosacral GERD (gastroesophageal reflux disease) Headache Hx of congestive heart failure (Acute) Hypertension Metastatic urothelial carcinoma (Acute) Osteoarthritis of spine with radiculopathy, lumbar region Sciatica Spinal stenosis of lumbar region Surgical History History of transurethral destruction of bladder lesion (Acute) Hx of nephrostomy (Acute) Vasectomy Family History Mother Blood clots in brain Father Heart disease Sister Cancer Sister No problems noted. Sister No problems noted. Sister No problems noted. Sister No problems noted. Brother No problems noted. Brother No problems noted. Brother No problems noted. Brother No problems noted. Brother No problems noted. Daughter No problems noted. Daughter No problems noted. Daughter No problems noted. Social History Smoking/Tobacco Use Status: Current every day Tobacco Type: cigarettes Tobacco: How many years used: 50 Alcohol Intake: never Drug use: Never Substance use type: does not use Do you feel safe at home: Yes Do you feel safe in your relationship?: Yes Exam <Elfego Strauss MD - Last Filed: 04/20/19 11:26> Const General: cooperative and no acute distress HENAL Head: normocephalic Mouth: moist mucous membranes Eyes Conjunctivae: normal conjunctivae Sclera: normal sclerae Neck Neck: trachea midline Resp Effort & Inspection: normal respiratory effort, able to speak in complete sentences and no cough Auscultation: clear to auscultation bilaterally, no rales, no rhonchi and no wheezes Cardio Jugular venous pressure: no JVD Rate: regular rate and not tachycardic Rhythm: regular rhythm GI Inspection: visible herniation (Large ventral with bearing down -chronic) Palpation: soft, not firm, no guarding, no masses, not rigid and tender suprapubicly; with no rebound tenderness Auscultation: normal bowel sounds Back/Spine/Pelvis Back: No erythema and other (Left nephrostomy tube intact draining clear urine, no rash) Skin General skin exam: no rashes or lesions noted Neuro General: alert, awake, oriented x3 and tone normal Extrem General: no edema Psych Appearance: grossly normal Mental Status: mental status grossly normal Course <Elfego Strauss MD - Last Filed: 04/20/19 11:26> Vital Signs Temperature 37.8 C H 04/15/19 17:10 Pulse 88 04/15/19 17:10 Respiratory Rate 20 04/15/19 17:10 Blood Pressure 115/59 L 04/15/19 17:10 Pulse Oximetry 96 04/15/19 17:10 Temperature 37.8 C H 04/15/19 17:10 Temperature Source Oral 04/15/19 17:10 Pulse 92 H 04/15/19 17:16 Respiratory Rate 20 04/15/19 17:10 Respiratory Effort 04/15/19 17:18 Blood Pressure 109/66 04/15/19 17:16 Blood Pressure Mean 75 04/15/19 17:16 Blood Pressure Position Sitting 04/15/19 17:10 Pulse Oximetry 97 04/15/19 17:16 Oxygen Delivery Method Room Air 04/15/19 17:10 Oxygen Flow Rate 0 04/15/19 17:10 Pain Level 0 04/15/19 17:10 Lab/Test Results Lab/Test Results: 04/15/19 18:40 Blood Blood Culture - Pending 04/15/19 17:30 Urine - Reflex from Ua Urine Culture - Pending 04/15/19 17:30 Blood Blood Culture - Pending Laboratory Tests Range/Units 04/15/19 04/15/19 04/15/19 17:30 17:30 17:30 WBC (4.4-10.8) k/cumm RBC (4.50-6.00) m/cumm Hgb (13.5-17.5) g/dL Hct (40.0-50.0) % MCV (80-95) fL MCH (27.0-33.0) pg MCHC (32.0-36.0) g/dL RDW (11.8-14.1) % Plt Count (130-400) x1000/uL MPV (8.0-11.0) fL Immature Gran % Neutrophils % Lymphocytes % Monocytes % Eosinophils % Basophils % Absolute Neutrophils (1.2-6.7) k/cumm Absolute Lymphocytes (1.2-3.4) k/cumm Absolute Monocytes (0.11-0.7) k/cumm Absolute Eosinophils (0.0-0.7) k/cumm Absolute Basophils (0.0-0.2) k/cumm Sodium (136-145) mmol/L 139 Potassium (3.5-5.1) mmol/L 4.4 Chloride (98-107) mmol/L 103 Carbon Dioxide (21.0-32.0) mmol/L 26.3 Anion Gap (3-11) mmol/L 9.7 BUN (7-18) mg/dL 20 H Creatinine (0.70-1.30) mg/dL 1.35 H Estimated GFR/1.73 m2 (mL/min/1.73m2) 52.56 Glucose (70-100) mg/dL 124 H Lactate (0.6-1.4) mmol/l 1.0 Calcium (8.5-10.1) mg/dL 8.7 Magnesium (1.8-2.4) mg/dL 1.8 Total Bilirubin (0.2-1.0) mg/dL 0.5 AST (15-37) U/L 10 L ALT (12-78) U/L 17 Alkaline Phosphatase (46-116) U/L 67 Total Protein (6.4-8.2) g/dL 6.9 Albumin (3.4-5.0) g/dL 3.2 L Urine Color (Yellow) Yellow Urine Clarity (Clear) Cloudy Urine pH (5-8) 6.0 Ur Specific [place] (1.005-1.025) 1.015 Urine Protein (Negative) mg/dL 100 H Urine Ketones (Negative) mg/dL Negative Urine Blood (Negative) Moderate H Urine Nitrite (Negative) Positive H Urine Bilirubin (Negative) Negative Urine Urobilinogen (Up TO 0.2) EU/dL 1.0 H Ur Leukocyte Esterase (Negative) Large H Urine RBC (0-2) >50 H Urine WBC (0-5) HPF >50 Ur Epithelial Cells (Negative) HPF Few Urine Crystals (Negative) HPF Negative Urine Bacteria (Negative) HPF Many Urine Casts (Negative) LPF Negative Urine Mucus (Negative) Negative Urine Other (Negative) Negative Ur Culture Indicated? Yes Urine Glucose (Negative) mg/dL Negative Range/Units 04/15/19 17:30 WBC (4.4-10.8) k/cumm 13.78 H RBC (4.50-6.00) m/cumm 3.53 L Hgb (13.5-17.5) g/dL 11.2 L Hct (40.0-50.0) % 33.5 L MCV (80-95) fL 94.9 MCH (27.0-33.0) pg 31.7 MCHC (32.0-36.0) g/dL 33.4 RDW (11.8-14.1) % 13.8 Plt Count (130-400) x1000/uL 203 MPV (8.0-11.0) fL 9.8 Immature Gran % 0.2 Neutrophils % 81.9 Lymphocytes % 8.6 Monocytes % 8.3 Eosinophils % 0.9 Basophils % 0.1 Absolute Neutrophils (1.2-6.7) k/cumm 11.29 H Absolute Lymphocytes (1.2-3.4) k/cumm 1.19 L Absolute Monocytes (0.11-0.7) k/cumm 1.14 H Absolute Eosinophils (0.0-0.7) k/cumm 0.12 Absolute Basophils (0.0-0.2) k/cumm 0.01 Sodium (136-145) mmol/L Potassium (3.5-5.1) mmol/L Chloride (98-107) mmol/L Carbon Dioxide (21.0-32.0) mmol/L Anion Gap (3-11) mmol/L BUN (7-18) mg/dL Creatinine (0.70-1.30) mg/dL Estimated GFR/1.73 m2 (mL/min/1.73m2) Glucose (70-100) mg/dL Lactate (0.6-1.4) mmol/l Calcium (8.5-10.1) mg/dL Magnesium (1.8-2.4) mg/dL Total Bilirubin (0.2-1.0) mg/dL AST (15-37) U/L ALT (12-78) U/L Alkaline Phosphatase (46-116) U/L Total Protein (6.4-8.2) g/dL Albumin (3.4-5.0) g/dL Urine Color (Yellow) Urine Clarity (Clear) Urine pH (5-8) Ur Specific [place] (1.005-1.025) Urine Protein (Negative) mg/dL Urine Ketones (Negative) mg/dL Urine Blood (Negative) Urine Nitrite (Negative) Urine Bilirubin (Negative) Urine Urobilinogen (Up TO 0.2) EU/dL Ur Leukocyte Esterase (Negative) Urine RBC (0-2) Urine WBC (0-5) HPF Ur Epithelial Cells (Negative) HPF Urine Crystals (Negative) HPF Urine Bacteria (Negative) HPF Urine Casts (Negative) LPF Urine Mucus (Negative) Urine Other (Negative) Ur Culture Indicated? Urine Glucose (Negative) mg/dL Sign Out <Elfego Strauss MD - Last Filed: 04/20/19 11:26> Sign Out Data: Sign Out Comment: Care to be signed out to Dr. Garber with plan to follow-up on CT imaging to assess percutaneous nephrostomy tubes and for pyelonephritis, reassess patient for disposition. Last updated by Elfego Strauss MD at 04/15/19 20:04
--- NOTE | 2019-04-15 19:27 | DI.CT_ITS ---
SYMPTOM/DIAGNOSIS: UTI, LT NEPHROSTOMY, H/O BLADDER CA ABDOMEN AND PELVIC CT: The study was carried out with an intravenous administration of 100 cc's of Omnipaque 350. Note is made of a 2.6 cm. cyst involving the right hepatic lobe. The gallbladder is intact. There are no stones or dilatation. The pancreas, spleen and adrenals are intact. A small calcification is associated with a right renal cyst. There is also an exophytic right renal cyst measuring up to 4.4 cm. in diameter. The patient is status post left nephroureterostomy. There is no evidence of bowel obstruction. Note is made of what appears to represent a small duodenal lipoma. There is no evidence of mucosal thickening. There is nothing to suggest an acute appendix. There is no free air or free fluid in the intraperitoneal space. Atherosclerotic changes are demonstrated in the abdominal aorta. The infrarenal abdominal aorta has a maximal caliber of 3.3 cm. There is no evidence of lymphadenopathy. The urinary bladder is not distended. A 5 mm. calculus is identified in the lumen of the bladder. There is a filling defect within the urinary bladder and I cannot entirely exclude a mass. The bladder is non distended. The reproductive organs as visualized are unremarkable. No acute bony abnormality is seen. The soft tissues are unremarkable. IMPRESSION: Left sided percutaneous nephroureterostomy is identified in place. There is an apparent urinary bladder mass and mild aneurysmal dilatation of the infrarenal abdominal aorta is seen. There is no evidence of a rupture or leak. There are a few prominent mesenteric lymph nodes, some of them mildly enlarged up to 12 mm. in short axis.
--- NOTE | 2019-04-15 20:15 | NUR.NOTE ---
pt ct Nursing Note:
[2019-04-15] MEDS: cefTRIAXone 1 GM/50 ML BAG IVPB (20:30)
[2019-04-15] MEDS: Omnipaque 350 MG/ML 100 ML BTL IJ (20:44)
[2019-04-15 20:53] LABS: Bilirubin Negative (Negative); Blood Moderate (Negative); Clarity Cloudy (Clear); Glucose Negative (Negative); Ketones Negative (Negative); Leukocyte Esterase Large (Negative); Nitrite Positive (Negative); Specific Gravity 1.015 (1.005-1.025); Urobilinogen 0.2 EU/dL (Up TO 0.2)
[2019-04-15 20:59] LABS: Bacteria Many HPF (Negative); Crystals Negative HPF (Negative); Epithelial Cells Few HPF (Negative); Other Cells Negative (Negative); RBC >50 (0-2); WBC >50 HPF (0-5)
--- NOTE | 2019-04-15 20:59 | NUR.NOTE ---
pt back in room antibiotics cont Nursing Note:
[2019-04-15 21:00] LABS: C & S Indicated? Yes; Casts Negative LPF (Negative); Mucus Negative (Negative)
--- NOTE | 2019-04-15 21:47 | DI.VRAD_ITS ---
EXAM: CT Abdomen and Pelvis With Contrast EXAM DATE/TIME: 04/15/2019 7:30 PM CLINICAL HISTORY: 68 years old, male; Other: Fever, on chemo/uti left nephrostomy; Prior surgery; Surgery date: 1-6 months; Surgery type: CA related; Patient HX: PT states he has CA of the lung, back and bladder TECHNIQUE: Imaging protocol: Axial computed tomography images of the abdomen and pelvis with intravenous contrast. Coronal and sagittal reformatted images were created and reviewed. Radiation optimization: All CT scans at this facility use at least one of these dose optimization techniques: automated exposure control; mA and/or kV adjustment per patient size (includes targeted exams where dose is matched to clinical indication); or iterative reconstruction. Contrast material: OMINIPAQUE; Contrast volume: 100 ml; Contrast route: RIGHT HAND; COMPARISON: CR LEFT HIP COMPLETE \T\ AP PELVIS 10/22/2015 5:42 AM FINDINGS: Liver: Right hepatic lobe cyst measures 2.6 cm in diameter. Gallbladder and bile ducts: No calcified stones. No ductal dilation. Pancreas: Unremarkable. No ductal dilation. Spleen: Unremarkable. No splenomegaly. Adrenals: Unremarkable. No mass. Kidneys and ureters: Small calcification associated with the right renal cyst, or millimeters. Exophytic right renal cyst measures 4.4 cm in diameter. Status post percutaneous left nephroureterostomy. Stomach and bowel: Small duodenal lipoma, intramural.. No obstruction. No mucosal thickening. Appendix: No evidence of appendicitis. Intraperitoneal space: No free air. No significant fluid collection. Vasculature: Atherosclerotic abdominal aorta and branches. Infrarenal abdominal aorta is aneurysmal, 3.3 cm. Lymph nodes: No enlarged lymph nodes. Bladder: Urinary bladder isn't distended. 5 mm calculus likely within the lumen of the urinary bladder. Filling defect within the urinary bladder lumen, cannot rule out a mass. Urinary bladder is collapsed. Reproductive: Unremarkable as visualized. Bones/joints: No acute fracture. No dislocation. Soft tissues: Unremarkable. IMPRESSION: 1. Left sided percutaneous nephroureterostomy in place. Urinary bladder mass. Aneurysmal and atherosclerotic infrarenal abdominal aorta, no rupture or leak. 2. There are a few prominent mesenteric lymph nodes, some of them slightly enlarged up to 12 mm in short axis, image 47. Dictated and Authenticated by: Graham Aguilar MD. Ordering:HASEEB Telles MD
[2019-04-16] MEDS: levoFLOXacin 500 MG, levoFLOXacin 250 MG 750 MG PO (00:35)
[2019-04-16 00:44] VITALS: BP 109/66; PULSE 92; RESP 20; O2SAT 97
--- NOTE | 2019-04-16 08:41 | NUR.NOTE ---
Addendum entered by Lucy Valles 04/16/19 08:46: Lab results also faxed. Original Note: Nursing Note: Referral was faxed for follow. MD note and diagnostic imaging reports faxed also. Lucy Valles
== END 2019-04-16 00:43 | disposition home or self-care (01) ==
PROVIDERS: Student in an Organized Health Care Education/Training Program; Emergency Provider Emergency Medicine; PCP Family Medicine
DX: N39.0 Urinary tract infection, site not specified (principal); R59.0 Localized enlarged lymph nodes; C67.9 Malignant neoplasm of bladder, unspecified; Z92.21 Personal history of antineoplastic chemotherapy; I10 Essential (primary) hypertension; Z93.6 Other artificial openings of urinary tract status
CPT/HCPCS: 36415; 80053; 87040; 96365; 96366; 99285; 71046; 74177; 81003; 81015; 83605; 83735; 84439; 84443; 85025; 87086; 99284; J0696; J3490

== ENCOUNTER 2019-05-06 07:04 | Outpatient (CLI) | payer MEDICARE, OTHER, SELFPAY ==
[2019-05-06 07:50] LABS: Abs Immature Grans 0.05 k/cumm (0.0-0.09); Absolute Basophil Count 0.01 k/cumm (0.0-0.2); Absolute Eosinophil Count 0.41 k/cumm (0.0-0.7); Absolute Lymphocyte Count 1.18 k/cumm (1.2-3.4); Absolute Monocyte Count 0.89 k/cumm (0.11-0.7); Absolute Neutrophil Count 5.03 k/cumm (1.2-6.7); Basophils % 0.1; Eosinophils % 5.4; HCT 35.7 % (40.0-50.0); HGB 11.8 g/dL (13.5-17.5); Immature Grans % 0.7; Lymphocytes % 15.6; Mean Corp. HGB Concentration 33.1 g/dL (32.0-36.0); Mean Corpuscular Hemoglobin 31.5 pg (27.0-33.0); Mean Corpuscular Volume 95.2 fL (80-95); Mean Platelet Volume 9.6 fL (8.0-11.0); Monocytes % 11.8; Neutrophils % 66.4; Platelet Count 203 x1000/uL (130-400); RBC 3.75 m/cumm (4.50-6.00); RBC Distribution Width 13.9 % (11.8-14.1); White Blood Cell Count 7.57 k/cumm (4.4-10.8)
[2019-05-06 08:13] LABS: ALT 13 U/L (12-78); AST 9 U/L (15-37); Albumin 3.5 g/dL (3.4-5.0); Alkaline Phosphatase 63 U/L (46-116); Anion Gap 9.6 mmol/L (3-11); BUN 18 mg/dL (7-18); Bilirubin, Total 0.4 mg/dL (0.2-1.0); CO2 25.4 mmol/L (21.0-32.0); CREATININE 1.42 mg/dL (0.70-1.30); Calcium 9.1 mg/dL (8.5-10.1); Chloride 104 mmol/L (98-107); Estimated GFR 49.58 (mL/min/1.73m2); FREE T4 1.21 ng/dL (0.76-1.46); Glucose 114 mg/dL (70-100); Potassium 4.8 mmol/L (3.5-5.1); Sodium 139 mmol/L (136-145); TSH 6.14 uIU/mL (0.36-3.74); Total Protein 7.5 g/dL (6.4-8.2)
== END 2019-05-06 07:24 ==
PROVIDERS: PCP Family Medicine; Visit Provider Internal Medicine
DX: C79.10 Secondary malignant neoplasm of unspecified urinary organs (principal); Z79.899 Other long term (current) drug therapy
CPT/HCPCS: 36415; 80053; 84439; 84443; 85025

== ENCOUNTER 2019-05-27 07:04 | Outpatient (CLI) | payer MEDICARE, OTHER, SELFPAY ==
[2019-05-27 07:36] LABS: Abs Immature Grans 0.04 k/cumm (0.0-0.09); Absolute Basophil Count 0.01 k/cumm (0.0-0.2); Absolute Eosinophil Count 0.28 k/cumm (0.0-0.7); Absolute Lymphocyte Count 1.27 k/cumm (1.2-3.4); Absolute Monocyte Count 0.87 k/cumm (0.11-0.7); Absolute Neutrophil Count 5.27 k/cumm (1.2-6.7); Basophils % 0.1; Eosinophils % 3.6; HCT 33.7 % (40.0-50.0); HGB 11.2 g/dL (13.5-17.5); Immature Grans % 0.5; Lymphocytes % 16.4; Mean Corp. HGB Concentration 33.2 g/dL (32.0-36.0); Mean Corpuscular Hemoglobin 31.5 pg (27.0-33.0); Mean Corpuscular Volume 94.9 fL (80-95); Mean Platelet Volume 9.4 fL (8.0-11.0); Monocytes % 11.2; Neutrophils % 68.2; Platelet Count 234 x1000/uL (130-400); RBC 3.55 m/cumm (4.50-6.00); RBC Distribution Width 13.6 % (11.8-14.1); White Blood Cell Count 7.74 k/cumm (4.4-10.8)
[2019-05-27 07:56] LABS: ALT 20 U/L (16-63); AST 16 U/L (15-37); Albumin 3.5 g/dL (3.4-5.0); Alkaline Phosphatase 66 U/L (46-116); BUN 25 mg/dL (7-18); Bilirubin, Total 0.5 mg/dL (0.2-1.0); CREATININE 1.74 mg/dL (0.70-1.30); Calcium 8.7 mg/dL (8.5-10.1); Chloride 101 mmol/L (98-107); Estimated GFR 39.21 (mL/min/1.73m2); Glucose 119 mg/dL (70-100); Potassium 4.5 mmol/L (3.5-5.1); Sodium 137 mmol/L (136-145); Total Protein 7.3 g/dL (6.4-8.2)
== END 2019-05-27 07:24 ==
PROVIDERS: PCP Family Medicine; Visit Provider Internal Medicine
DX: Z79.899 Other long term (current) drug therapy (principal); C79.10 Secondary malignant neoplasm of unspecified urinary organs
CPT/HCPCS: 36415; 80053; 84439; 84443; 85025

== ENCOUNTER 2019-06-17 09:49 | Outpatient (CLI) | payer MEDICARE, OTHER, SELFPAY ==
[2019-06-17 10:19] LABS: Abs Immature Grans 0.04 k/cumm (0.0-0.09); Absolute Basophil Count 0.02 k/cumm (0.0-0.2); Absolute Lymphocyte Count 1.46 k/cumm (1.2-3.4); Absolute Monocyte Count 0.96 k/cumm (0.11-0.7); Absolute Neutrophil Count 5.09 k/cumm (1.2-6.7); Basophils % 0.3; HCT 35.4 % (40.0-50.0); HGB 11.6 g/dL (13.5-17.5); Immature Grans % 0.5; Lymphocytes % 18.3; Mean Corp. HGB Concentration 32.8 g/dL (32.0-36.0); Mean Corpuscular Hemoglobin 31.4 pg (27.0-33.0); Mean Corpuscular Volume 95.9 fL (80-95); Mean Platelet Volume 9.1 fL (8.0-11.0); Neutrophils % 63.9; Platelet Count 245 x1000/uL (130-400); RBC 3.69 m/cumm (4.50-6.00); RBC Distribution Width 13.4 % (11.8-14.1); White Blood Cell Count 7.97 k/cumm (4.4-10.8)
[2019-06-17 10:41] LABS: ALT 21 U/L (16-63); AST 13 U/L (15-37); Albumin 3.6 g/dL (3.4-5.0); Alkaline Phosphatase 70 U/L (46-116); Anion Gap 8.6 mmol/L (3-11); BUN 14 mg/dL (7-18); Bilirubin, Total 0.5 mg/dL (0.2-1.0); CO2 29.4 mmol/L (21.0-32.0); CREATININE 1.27 mg/dL (0.70-1.30); Calcium 9.1 mg/dL (8.5-10.1); Chloride 102 mmol/L (98-107); Estimated GFR 56.23 (mL/min/1.73m2); Glucose 116 mg/dL (70-100); Potassium 4.7 mmol/L (3.5-5.1); Sodium 140 mmol/L (136-145); TSH 4.32 uIU/mL (0.36-3.74); Total Protein 7.6 g/dL (6.4-8.2)
[2019-06-17 11:08] LABS: FREE T4 1.22 ng/dL (0.76-1.46)
== END 2019-06-17 10:09 ==
PROVIDERS: PCP Family Medicine; Visit Provider Internal Medicine
DX: C79.10 Secondary malignant neoplasm of unspecified urinary organs (principal); Z79.899 Other long term (current) drug therapy
CPT/HCPCS: 36415; 80053; 84439; 84443; 85025

== ENCOUNTER 2019-06-18 00:54 | Outpatient (CLI) | payer MEDICARE, OTHER, SELFPAY ==
--- NOTE | 2019-06-18 11:00 | DI.US_ITS ---
EXAM: US RENAL CLINICAL HISTORY: C78.00 SECONDARY MALIGNANT NEOPLASM OF LUNG. TECHNIQUE: Renal ultrasound performed according to protocol. COMPARISON: CT ABDOMEN AND PELVIS W from 04/15/2019 FINDINGS: The kidneys are normal in size and shape. There is a 4.2 cm in diameter cyst of the upper pole of t he right kidney, which appears to be a simple cyst. There is an echogenic focus measuring about 8 mi llimeters in the lower pole of the right kidney with posterior acoustic shadowing and twinkling artif act consistent with nephrolithiasis. No evidence of hydronephrosis on either side. No other abnorma lity of the left kidney noted. The patient reportedly has a left nephrostomy tube in place and there is some shadowing from the pelvic region. The urinary bladder is essentially empty. IMPRESSION: No evidence of hydronephrosis. Nephrolithiasis, right lower renal pole
== END 2019-06-18 01:14 ==
PROVIDERS: PCP Family Medicine; Visit Provider Urology
DX: C78.00 Secondary malignant neoplasm of unspecified lung (principal); N28.1 Cyst of kidney, acquired; N20.0 Calculus of kidney; Z93.6 Other artificial openings of urinary tract status
CPT/HCPCS: 76770

== ENCOUNTER 2019-07-08 08:52 | Outpatient (CLI) | payer MEDICARE, OTHER, SELFPAY ==
[2019-07-08 09:24] LABS: Abs Immature Grans 0.06 k/cumm (0.0-0.09); Absolute Basophil Count 0.03 k/cumm (0.0-0.2); Absolute Eosinophil Count 0.39 k/cumm (0.0-0.7); Absolute Lymphocyte Count 1.24 k/cumm (1.2-3.4); Absolute Monocyte Count 0.96 k/cumm (0.11-0.7); Absolute Neutrophil Count 6.11 k/cumm (1.2-6.7); Basophils % 0.3; Eosinophils % 4.4; HCT 32.3 % (40.0-50.0); HGB 10.7 g/dL (13.5-17.5); Immature Grans % 0.7; Lymphocytes % 14.1; Mean Corp. HGB Concentration 33.1 g/dL (32.0-36.0); Mean Corpuscular Hemoglobin 31.4 pg (27.0-33.0); Mean Corpuscular Volume 94.7 fL (80-95); Mean Platelet Volume 8.9 fL (8.0-11.0); Monocytes % 10.9; Neutrophils % 69.6; Platelet Count 252 x1000/uL (130-400); RBC 3.41 m/cumm (4.50-6.00); RBC Distribution Width 13.2 % (11.8-14.1); White Blood Cell Count 8.79 k/cumm (4.4-10.8)
[2019-07-08 09:44] LABS: ALT 12 U/L (16-63); AST 13 U/L (15-37); Albumin 3.4 g/dL (3.4-5.0); Alkaline Phosphatase 73 U/L (46-116); Anion Gap 9.8 mmol/L (3-11); BUN 18 mg/dL (7-18); Bilirubin, Total 0.5 mg/dL (0.2-1.0); CO2 25.2 mmol/L (21.0-32.0); CREATININE 1.39 mg/dL (0.70-1.30); Chloride 103 mmol/L (98-107); Estimated GFR 50.67 (mL/min/1.73m2); FREE T4 1.33 ng/dL (0.76-1.46); Glucose 115 mg/dL (70-100); Potassium 4.4 mmol/L (3.5-5.1); Sodium 138 mmol/L (136-145); TSH 3.52 uIU/mL (0.36-3.74); Total Protein 7.4 g/dL (6.4-8.2)
== END 2019-07-08 09:12 ==
PROVIDERS: PCP Family Medicine; Visit Provider Internal Medicine
DX: C79.10 Secondary malignant neoplasm of unspecified urinary organs (principal); Z79.899 Other long term (current) drug therapy
CPT/HCPCS: 36415; 80053; 84439; 84443; 85025

== ENCOUNTER 2019-07-14 11:32 | Outpatient (CLI) | payer MEDICARE, OTHER, SELFPAY ==
[2019-07-14 12:08] LABS: Abs Immature Grans 0.04 k/cumm (0.0-0.09); Absolute Basophil Count 0.01 k/cumm (0.0-0.2); Absolute Eosinophil Count 0.34 k/cumm (0.0-0.7); Absolute Monocyte Count 0.81 k/cumm (0.11-0.7); Absolute Neutrophil Count 5.97 k/cumm (1.2-6.7); Basophils % 0.1; Eosinophils % 4.1; HCT 32.5 % (40.0-50.0); HGB 10.7 g/dL (13.5-17.5); Immature Grans % 0.5; Lymphocytes % 14.3; Mean Corp. HGB Concentration 32.9 g/dL (32.0-36.0); Mean Corpuscular Hemoglobin 31.8 pg (27.0-33.0); Mean Corpuscular Volume 96.7 fL (80-95); Monocytes % 9.7; Neutrophils % 71.3; Platelet Count 256 x1000/uL (130-400); RBC 3.36 m/cumm (4.50-6.00); RBC Distribution Width 13.5 % (11.8-14.1); White Blood Cell Count 8.37 k/cumm (4.4-10.8)
[2019-07-14 13:54] LABS: ALT 14 U/L (16-63); AST 11 U/L (15-37); Albumin 3.4 g/dL (3.4-5.0); Alkaline Phosphatase 78 U/L (46-116); Anion Gap 8.8 mmol/L (3-11); BUN 18 mg/dL (7-18); Bilirubin, Total 0.4 mg/dL (0.2-1.0); CO2 28.2 mmol/L (21.0-32.0); Calcium 8.6 mg/dL (8.5-10.1); Chloride 102 mmol/L (98-107); FREE T4 1.25 ng/dL (0.76-1.46); Glucose 145 mg/dL (70-100); Potassium 4.5 mmol/L (3.5-5.1); Sodium 139 mmol/L (136-145); TSH 2.61 uIU/mL (0.36-3.74); Total Protein 6.8 g/dL (6.4-8.2)
== END 2019-07-14 11:52 ==
PROVIDERS: PCP Family Medicine; Visit Provider Internal Medicine
DX: C79.10 Secondary malignant neoplasm of unspecified urinary organs (principal); Z79.899 Other long term (current) drug therapy
CPT/HCPCS: 36415; 80053; 84439; 84443; 85025

== ENCOUNTER 2019-07-22 11:41 | Outpatient (CLI) | payer MEDICARE, OTHER, SELFPAY ==
[2019-07-22 12:29] LABS: Absolute Eosinophil Count 0.05 k/cumm (0.0-0.7); Absolute Lymphocyte Count 0.77 k/cumm (1.2-3.4); Absolute Monocyte Count 0.09 k/cumm (0.11-0.7); Absolute Neutrophil Count 2.54 k/cumm (1.2-6.7); Eosinophils % 1.4; HCT 31.7 % (40.0-50.0); HGB 10.3 g/dL (13.5-17.5); Lymphocytes % 22.3; Mean Corp. HGB Concentration 32.5 g/dL (32.0-36.0); Mean Corpuscular Hemoglobin 30.8 pg (27.0-33.0); Mean Corpuscular Volume 94.9 fL (80-95); Mean Platelet Volume 8.8 fL (8.0-11.0); Monocytes % 2.6; Neutrophils % 73.7; Platelet Count 126 x1000/uL (130-400); RBC 3.34 m/cumm (4.50-6.00); RBC Distribution Width 13.3 % (11.8-14.1); White Blood Cell Count 3.45 k/cumm (4.4-10.8)
[2019-07-22 12:47] LABS: ALT 37 U/L (16-63); AST 23 U/L (15-37); Albumin 3.2 g/dL (3.4-5.0); Alkaline Phosphatase 82 U/L (46-116); Anion Gap 9.3 mmol/L (3-11); BUN 30 mg/dL (7-18); Bilirubin, Total 0.4 mg/dL (0.2-1.0); CO2 24.7 mmol/L (21.0-32.0); CREATININE 1.78 mg/dL (0.70-1.30); Calcium 8.7 mg/dL (8.5-10.1); Chloride 106 mmol/L (98-107); Estimated GFR 38.09 (mL/min/1.73m2); FREE T4 1.37 ng/dL (0.76-1.46); Glucose 141 mg/dL (70-100); Potassium 4.2 mmol/L (3.5-5.1); Sodium 140 mmol/L (136-145); TSH 2.28 uIU/mL (0.36-3.74)
[2019-07-22 12:48] LABS: Diff Comment Agrees w/ Instrument; RBC Morphology Normal
== END 2019-07-22 12:01 ==
PROVIDERS: PCP Family Medicine; Visit Provider Internal Medicine
DX: C79.10 Secondary malignant neoplasm of unspecified urinary organs (principal); Z79.899 Other long term (current) drug therapy
CPT/HCPCS: 36415; 80053; 84439; 84443; 85025

== ENCOUNTER 2019-07-29 12:16 | Emergency (ER) | payer MEDICARE, OTHER, SELFPAY ==
[2019-07-29] VITALS (87 sets, daily range): BP systolic 72–93; BP diastolic 37–76; PULSE 73–84; RESP 11–24; TEMP 37; O2SAT 92–100
--- NOTE | 2019-07-29 12:33 | W.ED.GENAD ---
Discharge Plan Disposition Patient Disposition: [facility] Condition: Serious Discharge Details Chief Complaint: GenMedical Clinical Impression: Hypotension, Small bowel obstruction, UTI (urinary tract infection), History of bladder cancer, History of metastatic neoplastic disease Primary Care Provider: Delonte Turpin ED Provider: Ashley Tobar Home Meds and New Rx's Prescriptions: No Action oxycodone 10 MG tablet 15 mg PO Q4H PRN PRNRF: 0 metoprolol succinate 50 MG tablet extended release 24 hr 50 mg PO BID RF: 0 diclofenac sodium 50 MG tablet,delayed release (DR/EC) 50 mg PO TID RF: 0 lisinopril 40 MG tablet 40 mg PO DAILY RF: 0 sennosides-docusate sodium [Senexon-S] 8.6-50 mg Tablet 1 tab PO BID PRNRF: 0 prochlorperazine maleate 10 mg Tablet 10 mg PO Q6H PRNRF: 0 tamsulosin 0.4 mg Capsule 0.4 mg PO DAILY RF: 0 amlodipine 10 mg Tablet 10 mg PO DAILY RF: 0 morphine 30 mg Tablet 30 mg PO Q8H PRNRF: 0 esomeprazole magnesium 40 mg Capsule,Delayed Release(Dr/Ec) 40 mg PO DAILY RF: 0 albuterol sulfate 90 mcg/actuation Hfa Aerosol Inhaler 2 puff INHALATION QID PRNRF: 0 finasteride 5 mg Tablet 5 mg PO DAILY RF: 0 gabapentin 600 mg Tablet 600 mg PO BID RF: 0 lorazepam 0.5 mg Tablet 0.5 mg PO Q6H PRNRF: 0 oxycodone 30 mg Tablet 30 mg PO Q4H PRNRF: 0 Discharge Data Discharge Date/Time-TO BE ENTERED AT DEPARTURE: 07/29/19 16:45 Medical Decision Making 1225 -- 69-year-old male with a history of metastatic urothelial cancer, GERD, nephrostomy tubes who presents for weakness, confusion and decreased appetite of the past few days. BP 86/46. Afebrile. Patient appears generally fatigued. He is oriented x2 but not to time which is new over the past few days. No focal deficits on exam. Abdomen diffusely tender. Nephrostomy tube bandage clean and states that the area appeared normal this morning before dressing change. Differential diagnosis includes UTI, pneumonia, dehydration, electrolyte abnormality, mets to brain. Will place an IV, bolus IV fluids, screening labs, CT head, chest, abdomen, pelvis and give a dose of his regularly scheduled morphine. EKG notes a rate of 75, sinus with no acute ST ischemic changes. 1350 --labs reviewed. Creatinine 5.8, significant drop from 1.8 to 1-week ago, GFR also diminished from 38 down to 9. Lactate normal at 0.9. Urinalysis notes significant WBCs, nitrate but may be colonization. As patient is followed by [facility] urology who recently changed his left nephrostomy tube within the last couple months, will call for a consult possible transfer. This was discussed with patient at bedside and he states that he does not want to be admitted to any hospital. Discussing his advanced directives and CODE STATUS, he states he would like to be DNR/DNI. He states he would formally like to discuss his plan with his significant other first before making the decision regarding plan today. 1410 --CT head negative. CT chest negative for acute focal process. CT abdomen notes possible small bowel obstruction but no obstruction around nephrostomy tube. 1425 --discussed with [facility] urology -patient has not been seen by them since November. Does not see any concern from a urology standpoint. Recommends discussion with the patient's oncologist Dr. Trevizo to then consult medicine and surgery. Patient states he would like to hold on any further advanced directive discussion at this time and is not fully made a decision. 1520 --discussed with [facility] critical care -accepting physician Dr. Ricardo. Would like a dose of Zosyn. BP now somewhat improved to 86/45. Will continue IV fluids. Low threshold for central line. Patient is agreeable with plan. He now states he is a full code. 1600 --BP improved to 93/46. Will hold on central line at this time and plan for transfer. Of note, patient had had previous vomiting and diarrhea but this resolved recently. He has now started with multiple episodes of diarrhea while here in the ED. Unable to obtain sample. [facility] notified of this development. Medical Records Medical records reviewed: Yes I reviewed the patient's medical records. Imaging Data Radiologic Study: Radiologist's impression: CT HEAD WO CLINICAL HISTORY: confusion, h/o cancer, r/o mets/bleed TECHNIQUE: The exam as performed according to the usual protocol. COMPARISON: No exams were available for comparison FINDINGS: There is age-appropriate cerebral atrophy. No acute intracranial hemorrhage, midline shift or mass effect is present. The ventricles are intact. The basilar cisterns are patent. The visualized paranasal sinuses are clear. The mastoid air cells are well pneumatized. The calvarium is intact. IMPRESSION: No acute intracranial process. CT:CT chest/abd/pel wo EXAM: CT CHEST/ABD/PEL WO CLINICAL HISTORY: weak/abd pain, h/o metastatic urothelial CA TECHNIQUE: The exam was performed according to the usual protocol COMPARISON: CT ABDOMEN PELVIS W from 04/15/2019 FINDINGS: CT scan of the abdomen and pelvis The lack of IV contrast does limit evaluation of the abdominal pelvic organs. There are again seen hepatic cysts. The gallbladder is moderately distended. No cholelithiasis is seen. There is no biliary ductal dilatation. The pancreas, spleen, and adrenal glands are unremarkable. There are stable cysts seen in the right kidney. No evidence of obstructive uropathy on the right is noted. There is a left nephrostomy tube and a left nephroureteral stent. There is no dilatation of the left renal collecting system. The unopacified urinary bladder has a similar appearance to the prior examination from 04/15/2019. The bladder contents appear to be of soft tissue density. The findings suggest a persistent urinary bladder mass. Please correlate with the patient's surgical/therapeutic history. Recurrent mass or hemorrhage/infection cannot be excluded. There is moderate dilatation of the small bowel to the level of the ileum. The transition is seen in the right lower quadrant. The colon is of normal caliber. There is atherosclerosis of the abdominal aorta. There is an unchanged at 3.4 cm infrarenal abdominal aortic aneurysm. No significant abdominal or pelvic adenopathy or pneumoperitoneum is present. No significant adenopathy is seen in the abdomen or pelvis. There is L5 spondylolysis and grade 1 spondylolisthesis of L5 on S1 degenerative changes are seen in the spine. CT scan of the chest The visualized thyroid gland is unremarkable. There is atherosclerosis of the thoracic aorta. The heart is mildly enlarged. No pericardial effusion is present. Coronary artery calcifications are present. There is an enlarged subcarinal lymph node present. It measures 3 x 1.7 cm. No pleural effusion or pneumothorax is identified. There is linear scarring or atelectasis in the lung bases. No focal consolidating infiltrates are present. The tracheobronchial tree is unremarkable. Degenerative changes are present in the spine. IMPRESSION: 1. Findings suspicious for small bowel obstruction with transition in the right lower quadrant near the distal ileum. 2. Left nephrostomy and nephroureteral stent. No evidence of nephrosis. 3. Abnormal appearance of the urinary bladder suspicious for residual or recurrent mass. Hemorrhage or infection cannot be excluded. 4. 3 x 1.7 cm enlarged subcarinal lymph node. 5. Atelectasis or scarring in the lung bases bilaterally. 6. Coronary artery calcifications. 7. The findings were discussed with the emergency department on the date of the examination. Lab Data Lab results reviewed: Yes I reviewed the patient's lab results. Labs: 07/29/19 14:04 Blood Blood Culture - Pending 07/29/19 12:54 Urine - Reflex from Ua Urine Culture - Pending 07/29/19 13:15 Blood Blood Culture - Pending Laboratory Tests Range/Units 07/29/19 07/29/19 07/29/19 12:54 13:15 13:15 WBC (4.4-10.8) k/cumm RBC (4.50-6.00) m/cumm Hgb (13.5-17.5) g/dL Hct (40.0-50.0) % MCV (80-95) fL MCH (27.0-33.0) pg MCHC (32.0-36.0) g/dL RDW (11.8-14.1) % Plt Count (130-400) x1000/uL MPV (8.0-11.0) fL Immature Gran % Neutrophils % Band Neutrophils % % Lymphocytes % Monocytes % Eosinophils % Basophils % Metamyelocytes % % Myelocytes % % Promyelocytes % % Absolute Neutrophils (1.2-6.7) k/cumm Absolute Lymphocytes (1.2-3.4) k/cumm Absolute Monocytes (0.11-0.7) k/cumm Absolute Eosinophils (0.0-0.7) k/cumm Absolute Basophils (0.0-0.2) k/cumm Differential Comment RBC Morphology Polychromasia Anisocytosis Sodium (136-145) mmol/L 138 Potassium (3.5-5.1) mmol/L 4.5 Chloride (98-107) mmol/L 103 Carbon Dioxide (21.0-32.0) mmol/L 22.0 Anion Gap (3-11) mmol/L 13.0 H BUN (7-18) mg/dL 77 H Creatinine (0.70-1.30) mg/dL 5.80 H* Estimated GFR/1.73 m2 (mL/min/1.73m2) 9.74 Glucose (70-100) mg/dL 111 H Lactate (0.6-1.4) mmol/L 0.9 Calcium (8.5-10.1) mg/dL 8.4 L Magnesium (1.8-2.4) mg/dL 1.7 L Total Bilirubin (0.2-1.0) mg/dL 0.7 AST (15-37) U/L 19 ALT (16-63) U/L 32 Alkaline Phosphatase (46-116) U/L 101 Troponin I (0.00-0.06) ng/mL < 0.05 Total Protein (6.4-8.2) g/dL 6.5 Albumin (3.4-5.0) g/dL 2.5 L Urine Color (Yellow) Red Urine Clarity (Clear) Cloudy Urine pH (5-8) 5.5 Ur Specific [place] (1.005-1.025) 1.025 Urine Protein (Negative) mg/dL >=300 H Urine Ketones (Negative) mg/dL Trace H Urine Blood (Negative) Large H Urine Nitrite (Negative) Positive H Urine Bilirubin (Negative) Moderate H Urine Urobilinogen (Up TO 0.2) EU/dL 2.0 H Ur Leukocyte Esterase (Negative) Large H Urine RBC Not Applicable Urine WBC (0-5) HPF >50 Ur Epithelial Cells Not Applicable Urine Crystals Not Applicable Urine Bacteria Not Applicable Urine Mucus Not Applicable Ur Culture Indicated? Yes Urine Glucose (Negative) mg/dL Negative Range/Units 07/29/19 13:15 WBC (4.4-10.8) k/cumm 2.55 L RBC (4.50-6.00) m/cumm 2.50 L Hgb (13.5-17.5) g/dL 7.7 L Hct (40.0-50.0) % 23.7 L MCV (80-95) fL 94.8 MCH (27.0-33.0) pg 30.8 MCHC (32.0-36.0) g/dL 32.5 RDW (11.8-14.1) % 13.7 Plt Count (130-400) x1000/uL 76 L MPV (8.0-11.0) fL 10.6 Immature Gran % See Differential Neutrophils % 45.0 Band Neutrophils % % 3.0 Lymphocytes % 28.0 Monocytes % 21.0 Eosinophils % 0.0 Basophils % 0.0 Metamyelocytes % % 3.0 Myelocytes % % 0.0 Promyelocytes % % 0 Absolute Neutrophils (1.2-6.7) k/cumm 1.22 Absolute Lymphocytes (1.2-3.4) k/cumm 0.71 L Absolute Monocytes (0.11-0.7) k/cumm 0.54 Absolute Eosinophils (0.0-0.7) k/cumm 0.00 Absolute Basophils (0.0-0.2) k/cumm 0.00 Differential Comment Manual differential RBC Morphology See below Polychromasia Present Anisocytosis 2+ Sodium (136-145) mmol/L Potassium (3.5-5.1) mmol/L Chloride (98-107) mmol/L Carbon Dioxide (21.0-32.0) mmol/L Anion Gap (3-11) mmol/L BUN (7-18) mg/dL Creatinine (0.70-1.30) mg/dL Estimated GFR/1.73 m2 (mL/min/1.73m2) Glucose (70-100) mg/dL Lactate (0.6-1.4) mmol/L Calcium (8.5-10.1) mg/dL Magnesium (1.8-2.4) mg/dL Total Bilirubin (0.2-1.0) mg/dL AST (15-37) U/L ALT (16-63) U/L Alkaline Phosphatase (46-116) U/L Troponin I (0.00-0.06) ng/mL Total Protein (6.4-8.2) g/dL Albumin (3.4-5.0) g/dL Urine Color (Yellow) Urine Clarity (Clear) Urine pH (5-8) Ur Specific Glasgow (1.005-1.025) Urine Protein (Negative) mg/dL Urine Ketones (Negative) mg/dL Urine Blood (Negative) Urine Nitrite (Negative) Urine Bilirubin (Negative) Urine Urobilinogen (Up TO 0.2) EU/dL Ur Leukocyte Esterase (Negative) Urine RBC Urine WBC (0-5) HPF Ur Epithelial Cells Urine Crystals Urine Bacteria Urine Mucus Ur Culture Indicated? Urine Glucose (Negative) mg/dL ECG Data Attestation: I personally reviewed and interpreted this ECG (s) as follows: Interpretation: Rate of 75, sinus, no acute ST elevation or depression. [place] 154. QTc 420. QRS 96. HPI General Mode of arrival: ambulatory. Date/Time Provider Initiated Documentation: 07/29/19 12:27. Limitations to Documentation: no limitations. Information obtained by: patient. HPI Narrative: Pt is a 69yo M with a history of GERD, CHF, hypertension, metastatic urothelial carcinoma with history of nephrostomy tubes, with left side remaining who presents for decreased appetite, weakness and confusion over the past few days. Patient significant other states that he is normally up and walking with a cane but has been more lethargic and drowsy the past few days. She states he seemed confused yesterday and that he asked who his house this was when they were both in their house. She states that his last chemotherapy was on July 17, and he was scheduled for July 22 but had had recent vomiting and diarrhea so this was canceled. She states that the vomiting and diarrhea has resolved. She denies any known fever. Patient does complain of left-sided abdominal pain. Significant other states that patient has had this chronically after his nephrostomy tube placement. Patient does not make any urine. Related Data Home Medications Medication Instructions Recorded Confirmed diclofenac sodium 50 mg PO TID 10/22/15 07/29/19 lisinopril 40 mg PO DAILY 10/22/15 07/29/19 metoprolol succinate 50 mg PO BID 10/22/15 07/29/19 oxycodone 15 mg PO Q4H PRN PRN 01/15/18 07/29/19 prochlorperazine maleate 10 mg PO Q6H PRN 01/27/19 07/29/19 sennosides-docusate sodium 1 tab PO BID PRN 01/27/19 07/29/19 [Senexon-S] albuterol sulfate 2 puff INHALATION QID PRN 04/15/19 07/29/19 amlodipine 10 mg PO DAILY 04/15/19 07/29/19 esomeprazole magnesium 40 mg PO DAILY 04/15/19 07/29/19 finasteride 5 mg PO DAILY 04/15/19 07/29/19 morphine 30 mg PO Q8H PRN 04/15/19 07/29/19 tamsulosin 0.4 mg PO DAILY 04/15/19 07/29/19 gabapentin 600 mg PO BID 07/29/19 07/29/19 lorazepam 0.5 mg PO Q6H PRN 07/29/19 07/29/19 oxycodone 30 mg PO Q4H PRN 07/29/19 07/29/19 Allergies Allergy/AdvReac Type Severity Reaction Status Date / Time lisinopril AdvReac Unknown Cough Unverified 07/29/19 12:27 General Stated Complaint: GenMedical HELADIO: 2 Review of Systems All systems reviewed & are unremarkable except as noted in HPI and below Constitutional Constitutional: Reports as per HPI, Denies chills, Denies fever(s) and Reports weakness Eyes Eyes: Denies blurry vision ENT Ears, Nose, Mouth, and Throat: Denies dizziness, Denies sore throat and Denies throat swelling Cardiovascular Cardiovascular: Denies chest pain and Denies dyspnea Respiratory Respiratory: Denies cough and Denies dyspnea Gastrointestinal Gastrointestinal: Reports abdominal pain, Denies diarrhea and Denies vomiting Genitourinary Genitourinary: Denies hematuria and Denies dysuria Musculoskeletal Musculoskeletal: Denies back pain and Denies numbness Integumentary/Breasts Skin/Breast: Denies lesions and Denies rash Neurologic Neurologic: Reports confusion, Denies dizziness, Denies focal weakness, Denies numbness and Reports weakness Psychiatric Psychiatric: Reports confusion Allergic/Immunologic Allergic/Immunologic: Denies throat swelling PFSH Medical History Arthritis of knee Arthritis of shoulder region, left, degenerative Back pain DDD (degenerative disc disease), lumbosacral GERD (gastroesophageal reflux disease) Headache Hx of congestive heart failure (Acute) Systolic CHF Hypertension Metastatic urothelial carcinoma (Acute) Osteoarthritis of spine with radiculopathy, lumbar region Sciatica Spinal stenosis of lumbar region Surgical History History of transurethral destruction of bladder lesion (Acute) TURBT 10/18/18 Hx of nephrostomy (Acute) Percutaneous tube placement L Vasectomy Family History Mother Blood clots in brain Father Heart disease Sister Cancer Sister No problems noted. Sister No problems noted. Sister No problems noted. Sister No problems noted. Brother No problems noted. Brother No problems noted. Brother No problems noted. Brother No problems noted. Brother No problems noted. Daughter No problems noted. Daughter No problems noted. Daughter No problems noted. Social History Smoking/Tobacco Use Status: Current every day Tobacco Type: cigarettes Tobacco: How many years used: 50 Alcohol Intake: never Drug use: Never Substance use type: does not use Do you feel safe at home: Yes Do you feel safe in your relationship?: Yes Exam Const General: cooperative, no acute distress and ill appearing chronically HENMT Head: normal to inspection Face and sinus: normal facial exam Eyes General: appearance normal, both eyes and all related structures Pupils: PERRL EOM: EOM intact bilaterally Neck Neck: normal visual inspection and No submandibular swelling Lymphatic: no lymphadenopathy noted Chest Chest: normal inspection of the chest and no tenderness Resp Effort & Inspection: normal respiratory effort and able to speak in complete sentences Auscultation: clear to auscultation bilaterally Cardio Rate: regular rate Rhythm: regular rhythm GI Inspection: normal to inspection Palpation: soft, not firm, not rigid and nontender Auscultation: normal bowel sounds Male General Exam: Yes normal external exam Testes: testicular tenderness (w/o erythema, edema, ecchymoses, lesions) bilaterally Back/Spine/Pelvis Thoracic/Lumbar Spine: thoracic and lumbar spine normal to inspection Pelvis: no pain with anterior-posterior compression Other: Nephrostomy tube extending from under bandage left flank without surrounding drainage, bleeding, erythema. Brownish-yellow urine noted in tubing and bag. Skin General skin exam: no rashes or lesions noted Neuro General: alert, awake and oriented x3 Cognition: normal cognition Speech: speech normal Motor: muscle tone normal throughout Sensory Exam: no sensory deficits noted Extrem General: normal to inspection, full ROM, normal capillary refill, no calf tenderness bilaterally and no edema Psych Appearance: grossly normal Mental Status: mental status grossly normal Speech and Movement: speech and movement normal Affect: normal affect Course Vital Signs Vital signs: Vital Signs Temperature 98.6 F 07/29/19 12:18 Pulse 78 07/29/19 12:18 Respiratory Rate 20 07/29/19 12:18 Blood Pressure 86/46 L 07/29/19 12:18 Pulse Oximetry 94 L 07/29/19 12:18 Temperature 98.6 F 07/29/19 12:18 Temperature Source Oral 07/29/19 12:18 Pulse 78 07/29/19 12:18 Respiratory Rate 20 07/29/19 12:18 Respiratory Effort Non-Labored 07/29/19 12:23 Blood Pressure 86/46 L 07/29/19 12:18 Blood Pressure Position Supine 07/29/19 12:18 Pulse Oximetry 94 L 07/29/19 12:18 Oxygen Delivery Method Room Air 07/29/19 12:18 Oxygen Flow Rate 0 07/29/19 12:18 Pain Level 1 07/29/19 12:18 Lab/Test Results Lab/Test Results: 07/29/19 12:31 Blood Blood Culture - Pending 07/29/19 12:31 Blood Blood Culture - Pending
[2019-07-29] MEDS: Normal Saline 250 ML IV (12:48)
--- NOTE | 2019-07-29 12:48 | DI.CT_ITS ---
EXAM: CT HEAD WO CLINICAL HISTORY: confusion, h/o cancer, r/o mets/bleed TECHNIQUE: The exam as performed according to the usual protocol. COMPARISON: No exams were available for comparison FINDINGS: There is age-appropriate cerebral atrophy. No acute intracranial hemorrhage, midline shift or mass e ffect is present. The ventricles are intact. The basilar cisterns are patent. The visualized paran jalen sinuses are clear. The mastoid air cells are well pneumatized. The calvarium is intact. IMPRESSION: No acute intracranial process.
--- NOTE | 2019-07-29 12:49 | DI.CT_ITS ---
EXAM: CT CHEST/ABD/PEL WO CLINICAL HISTORY: weak/abd pain, h/o metastatic urothelial CA TECHNIQUE: The exam was performed according to the usual protocol COMPARISON: CT ABDOMEN PELVIS W from 04/15/2019 FINDINGS: CT scan of the abdomen and pelvis The lack of IV contrast does limit evaluation of the abdominal pelvic organs. There are again seen hepatic cysts. The gallbladder is moderately distended. No cholelithiasis is s een. There is no biliary ductal dilatation. The pancreas, spleen, and adrenal glands are unremarkab le. There are stable cysts seen in the right kidney. No evidence of obstructive uropathy on the rig ht is noted. There is a left nephrostomy tube and a left nephroureteral stent. There is no dilatati on of the left renal collecting system. The unopacified urinary bladder has a similar appearance to the prior examination from 04/15/2019. The bladder contents appear to be of soft tissue density. Th e findings suggest a persistent urinary bladder mass. Please correlate with the patient's surgical/t herapeutic history. Recurrent mass or hemorrhage/infection cannot be excluded. There is moderate di latation of the small bowel to the level of the ileum. The transition is seen in the right lower cris drant. The colon is of normal caliber. There is atherosclerosis of the abdominal aorta. There is a n unchanged at 3.4 cm infrarenal abdominal aortic aneurysm. No significant abdominal or pelvic adeno tamika or pneumoperitoneum is present. No significant adenopathy is seen in the abdomen or pelvis. T here is L5 spondylolysis and grade 1 spondylolisthesis of L5 on S1 degenerative changes are seen in t he spine. CT scan of the chest The visualized thyroid gland is unremarkable. There is atherosclerosis of the thoracic aorta. The h eart is mildly enlarged. No pericardial effusion is present. Coronary artery calcifications are pre sent. There is an enlarged subcarinal lymph node present. It measures 3 x 1.7 cm. No pleural effus ion or pneumothorax is identified. There is linear scarring or atelectasis in the lung bases. No fo eugenie consolidating infiltrates are present. The tracheobronchial tree is unremarkable. Degenerative changes are present in the spine. IMPRESSION: 1. Findings suspicious for small bowel obstruction with transition in the right lower quadrant near t he distal ileum. 2. Left nephrostomy and nephroureteral stent. No evidence of nephrosis. 3. Abnormal appearance of the urinary bladder suspicious for residual or recurrent mass. Hemorrhage or infection cannot be excluded. 4. 3 x 1.7 cm enlarged subcarinal lymph node. 5. Atelectasis or scarring in the lung bases bilaterally. 6. Coronary artery calcifications. 7. The findings were discussed with the emergency department on the date of the examination.
[2019-07-29 13:05] LABS: Bilirubin Moderate (Negative); Blood Large (Negative); Clarity Cloudy (Clear); Glucose Negative (Negative); Ketones Trace mg/dL (Negative); Leukocyte Esterase Large (Negative); Nitrite Positive (Negative); Specific Gravity 1.025 (1.005-1.025); pH 5.5 (5-8)
[2019-07-29 13:23] LABS: Lactate 0.9 mmol/L (0.6-1.4)
[2019-07-29 13:33] LABS: Abs Immature Grans 0.07 k/cumm (0.0-0.09); HCT 23.7 % (40.0-50.0); HGB 7.7 g/dL (13.5-17.5); Mean Corp. HGB Concentration 32.5 g/dL (32.0-36.0); Mean Corpuscular Hemoglobin 30.8 pg (27.0-33.0); Mean Corpuscular Volume 94.8 fL (80-95); Mean Platelet Volume 10.6 fL (8.0-11.0); RBC Distribution Width 13.7 % (11.8-14.1); White Blood Cell Count 2.55 k/cumm (4.4-10.8)
[2019-07-29 13:40] LABS: ALT 32 U/L (16-63); AST 19 U/L (15-37); Albumin 2.5 g/dL (3.4-5.0); Alkaline Phosphatase 101 U/L (46-116); BUN 77 mg/dL (7-18); Bilirubin, Total 0.7 mg/dL (0.2-1.0); Calcium 8.4 mg/dL (8.5-10.1); Chloride 103 mmol/L (98-107); Estimated GFR 9.74 (mL/min/1.73m2); Glucose 111 mg/dL (70-100); Magnesium 1.7 mg/dL (1.8-2.4); Potassium 4.5 mmol/L (3.5-5.1); Sodium 138 mmol/L (136-145); Total Protein 6.5 g/dL (6.4-8.2)
[2019-07-29 13:42] LABS: C & S Indicated? Yes; WBC >50 HPF (0-5)
[2019-07-29 13:43] LABS: Troponin I < 0.05 ng/mL (0.00-0.06)
[2019-07-29 14:13] LABS: Absolute Lymphocyte Count 0.71 k/cumm (1.2-3.4); Absolute Monocyte Count 0.54 k/cumm (0.11-0.7); Absolute Neutrophil Count 1.22 k/cumm (1.2-6.7); Diff Comment Manual Differential
[2019-07-29 14:14] LABS: Platelet Count 76 x1000/uL (130-400); Promyelocytes % 0 %
[2019-07-29 14:15] LABS: Anisocytosis 2+; Polychromasia Present
[2019-07-29] MEDS: Normal Saline 1,000 ML 1000 ML IV ×2 (14:30→16:15)
[2019-07-29] MEDS: PIPERACILLIN/TAZO 3.375 GM in Normal Saline 50 ML IVPB (16:09)
--- NOTE | 2019-07-31 07:47 | NUR.NOTE ---
Urine culture final result faxed to [facility] [place] [phone] Note:
== END 2019-07-29 16:45 | disposition short-term general hospital (02) ==
PROVIDERS: Emergency Provider Physician Assistant; PCP Family Medicine
DX: I95.9 Hypotension, unspecified (principal); K56.609 Unspecified intestinal obstruction, unspecified as to partial versus complete obstruction; N39.0 Urinary tract infection, site not specified; C67.9 Malignant neoplasm of bladder, unspecified; I10 Essential (primary) hypertension
CPT/HCPCS: 36415; 71250; 80053; 87040; 87077; 93005; 96361; 96365; 96375; 99285; 70450; 74176; 81003; 81015; 83605; 83735; 84484; 85025; 87086; 87186; 93010; J2543

== ENCOUNTER 2019-08-28 15:46 | Inpatient (IN) | payer MEDICARE, OTHER, SELFPAY ==
[2019-08-28] VITALS (32 sets, daily range): BP systolic 94–190; BP diastolic 52–72; PULSE 84–129; RESP 17–38; TEMP 36.4–40.2; O2SAT 95–100
--- NOTE | 2019-08-28 15:48 | W.ED.GENAD ---
Discharge Plan Disposition Condition: Stable Discharge Details Chief Complaint: GenMedical Admit Date/Time: 08/28/19 19:16 Admit Provider: Otto Griffin Attending Provider: Otto Griffin Primary Care Provider: Delonte Turpin ED Provider: Jennifer Love Discharge Instructions Activity:: Activity as Tolerated Equipment/Supplies:: No Equipment Needed Diet:: As Tolerated Discharge Orders Discharge Orders: Discharge Order (Routine); Ordered 09/01/19 Ordered By: Jayde Neff Discharge Data Discharge Date/Time-TO BE ENTERED AT DEPARTURE: 08/28/19 19:55 Medical Decision Making Patient is a 69-year-old male with history of GERD, headaches, CHF, hypertension, metastatic urethral carcinoma, presenting today brought in via EMS with concern for sepsis. Patinet has left nephrostomy tube. EMS initially went to evaluate the patient this morning at which time a low-grade temp, appeared tremulous but declined transfer. However, family contacted EMS was again and the patient continues to decline. The time evaluated him this afternoon continues to be altered febrile with a temp of 103, tremulous. He reports that this morning he had similar symptoms but that his altered cognition would wax and wane. Patient is not able to give history. He is tachypneic, tachycardic, febrile. Blood pressures stable at 137/52 needs a percent room air. Patient was recently admitted at [facility] [place] after being transferred there with a diagnosis of SBO, UTI, GAMALIEL and ileus. Patient is able to follow commands but rarely answers questions. On exam, patient appears acutely ill. He is obese, difficult to obtain history from. Patient has AMS with fever, concerned for sepsis with end organ damage. Mouth is slightly open with tongue protruding. EMS reports that the family stated this is typical. He does appear very dry. At the same point, he is fluid overloaded with bilateral lower extremity pitting edema. He has distal pulses equal bilateral upper extremities. Abdomen is round firm but nontender with no peritoneal findings. Umbilical hernia is noted but is nontender. Lung sounds are diminished, scattered wheezes and rhonchi are noted, particular on the right side. Patient is able to follow commands well for neurologic assessment and no weakness is noted. Speech is intermittent, at times being quite clear and other times being nonverbal. Initial ECG is uninterpretable secondary to the patient's tremor and frequent movement. IV started, fluids started, plan to begin antibiotics as soon as possible. Plan for labs and imaging. Primary concerned for recurrent infection of his nephrostomy tube and possible HCAP given PE findings. Reviewed notes from recent [facility] [place] discharge. At that time, patient was diagnosed with Campylobacter jejuni infection was treated initially with IV antibiotics and continued on 7-day course of azithromycin after discharge. Patient was also diagnosed with an ileus which resolved without surgical intervention. Per patient, he finished entire course of antibiotics Labs reviewed, patient with a white count of 20.79 with a left shift. Hemoglobin is 9.4, this is stable for the patient. Creatinine is 1.82, this is down from 5.8 when he was here recently. Lactate is 1.7. Albumin is low at 2.6 this is typical for the patient. Patient returned from imaging and appears much improved. No longer tremulous. Temp down to 37.5. He is clear mentally, speech is appropriate. Repeat ECG reviewed by Dr. Garber. Patient is in normal sinus rhythm with a rate of 100. No acute ischemic changes noted. UAheavily contaminated. This is from his nephrostomy bag, unclear if this is actual infection vs. contaminant so am hesitant to only focus on this at this point. Patient was initially given broad coverage with Zosyn and Vanco to cover both possible UTI and HCAP. Influenza negative Patients mentaion greatly improved after administratio of IV fluids and starting antibiotics. Still intermittently confused, reports he is not at his baseline. He is now answering more readily. Consulted with Dr. Griffin who agrees to admission. Blood cultures and urine cultures pending. Patient appears much improved. Has received 1L of fluid, IV acetaminophen and above antibiotics. Discussed end of life goals/plan with patient and his . They have waffled on code status and interventions frequently in recent weeks. They are agreeable to discussing options for palliative care or hospice. At discussion tonight, they sound more interested in hospice care as patient is wanting to be comfortable at home and is wanting to start steering away from health care interventions. Referral placed. HPI General Mode of arrival: EMS. Date/Time Provider Initiated Documentation: 08/28/19 15:48. Limitations to Documentation: altered mental status. Information obtained by: EMS and RN notes reviewed. HPI Narrative: Patient is a 69-year-old male with history of metastatic bladder cancer, GERD, headaches, CHF, hypertension presenting today with chief complaint of altered mental status and fever. Patient is acutely altered and is unable to give any historical data although he does say yes or no to questions. Denies any pain at this time. EMS reports the patient was seen by them this morning was intermittently altered but appropriate enough to declined transportation at that time. Had a low-grade fever at that time. They report patient is noted to have a temp of 103 ?F. Patient denies headache, visual changes. He denies abdominal pain. Denies Nausea. Denies CP. Related Data Home Medications Medication Instructions Recorded Confirmed prochlorperazine maleate 10 mg PO Q6H PRN 01/27/19 09/02/19 sennosides-docusate sodium 1 tab PO BID PRN 01/27/19 09/02/19 [Senexon-S] albuterol sulfate 2 puff INHALATION QID PRN 04/15/19 09/02/19 esomeprazole magnesium 40 mg PO DAILY 04/15/19 09/02/19 finasteride 5 mg PO DAILY 04/15/19 09/02/19 tamsulosin 0.4 mg PO DAILY 04/15/19 09/02/19 gabapentin 600 mg PO BID 07/29/19 09/02/19 lorazepam 0.5 mg PO Q6H PRN 07/29/19 09/02/19 acetaminophen [Tylenol] 325 mg PO Q6H PRN PRN 08/28/19 09/02/19 aspirin [Aspirin Childrens] 1 tab PO DAILY 08/28/19 09/02/19 oxycodone 20 mg PO Q4H PRN PRN 08/28/19 09/02/19 phenazopyridine [Pyridium] 100 mg PO TID 08/28/19 09/02/19 levofloxacin 750 mg PO DAILY #11 tab 09/01/19 09/02/19 magnesium chloride [Mag 64] 64 mg PO DAILY #30 tab 09/01/19 09/02/19 oxycodone [OxyContin] 40 mg PO Q8H #15 tab 09/01/19 09/02/19 prednisone 40 mg PO DAILY #3 tab 09/01/19 09/02/19 Previous Rx's Medication Instructions Recorded levofloxacin 750 mg PO DAILY #11 tab 09/01/19 magnesium chloride [Mag 64] 64 mg PO DAILY #30 tab 09/01/19 oxycodone [OxyContin] 40 mg PO Q8H #15 tab 09/01/19 prednisone 40 mg PO DAILY #3 tab 09/01/19 Allergies Allergy/AdvReac Type Severity Reaction Status Date / Time No Known Allergies Allergy Unverified 08/28/19 17:28 General HELADIO: 2 Review of Systems Unobtainable due to mental status PFSH Medical History Arthritis of knee Arthritis of shoulder region, left, degenerative Back pain DDD (degenerative disc disease), lumbosacral GERD (gastroesophageal reflux disease) Headache Hx of congestive heart failure (Acute) Systolic CHF Hypertension Metastatic urothelial carcinoma (Acute) Osteoarthritis of spine with radiculopathy, lumbar region Sciatica Spinal stenosis of lumbar region Surgical History History of transurethral destruction of bladder lesion (Acute) TURBT 10/18/18 Hx of nephrostomy (Acute) Percutaneous tube placement L Vasectomy Family History Mother Blood clots in brain Father Heart disease Sister Cancer Sister No problems noted. Sister No problems noted. Sister No problems noted. Sister No problems noted. Brother No problems noted. Brother No problems noted. Brother No problems noted. Brother No problems noted. Brother No problems noted. Daughter No problems noted. Daughter No problems noted. Daughter No problems noted. Social History Smoking/Tobacco Use Status: Current every day Tobacco Type: cigarettes Tobacco: How many years used: 50 Alcohol Intake: never Drug use: Never Substance use type: does not use Do you feel safe at home: Yes Do you feel safe in your relationship?: Yes Exam Const General: cooperative, comfortable and ill appearing acutely Nutritional Appearance: average body habitus and well nourished Orientation: alert, awake and not oriented x3 (not answering questions appropriately) HENWI Head: normal to inspection Ears: hearing grossly normal bilaterally Mouth: mucous membranes dry (appears dehydrated) Eyes General: appearance normal, both eyes and all related structures Chest Chest: normal inspection of the chest, normal palpation of entire chest wall and no crepitus Resp Effort & Inspection: not able to speak in complete sentences (seems to be more from AMS), no cough, no grunting, no nasal flaring, no pursed lip breathing, no respiratory distress, tachypneic, no tripod positioning, no use of accessory muscles and other (short breaths, decreased respiratory effort) Auscultation: crackles on the left at the base and in the mid lung de la o, no rales, no rhonchi and wheezes expiratory wheezes and scattered wheezes Cardio Rate: regular rate Rhythm: regular rhythm Heart Sounds: S1 normal and S2 normal GI Inspection: normal to inspection, no edema, non-distended and obesity (round abdomen) Palpation: soft, no hepatosplenomegaly, firm, no guarding, hernia umbilical (no tenderness with palpation), not rigid and nontender Percussion: normal to percussion Auscultation: hypoactive bowel sounds Back/Spine/Pelvis Back: no CVA tenderness (nephrostomy tube noted, no erythema around insertion point) Thoracic/Lumbar Spine: thoracic and lumbar spine normal to inspection Skin General skin exam: no rashes or lesions noted Trauma: no lacerations or abrasions Neuro General: alert, awake and tone normal Cognition: abnormal cognition (patient seems confused by questions, will only answer yes/no) Speech: speech normal Gait: gait abnormal (crystal tin via EMS) Motor: muscle tone normal throughout, strength 5/5 throughout, no pronator drift, tremor (right hand) and no pronator drift noted Extrem General: normal capillary refill, no calf tenderness and edema Laterality: bilateral (bilateral 2+ pitting edema, pulses equal bilaterally) Psych Appearance: grossly normal and well kempt Mental Status: mental status grossly normal Speech and Movement: speech and movement normal
[2019-08-28 16:21] LABS: Lactate 1.7 mmol/L (0.6-1.4)
[2019-08-28] MEDS: Normal Saline 1,000 ML 1000 ML IV (16:25)
[2019-08-28 16:28] LABS: HCT 30.1 % (40.0-50.0); HGB 9.4 g/dL (13.5-17.5); Immature Grans % 0.5; Lymphocytes % 2.4; Mean Corp. HGB Concentration 31.2 g/dL (32.0-36.0); Mean Corpuscular Hemoglobin 29.9 pg (27.0-33.0); Mean Corpuscular Volume 95.9 fL (80-95); Mean Platelet Volume 8.7 fL (8.0-11.0); Monocytes % 7.9; Neutrophils % 89.2; Platelet Count 307 x1000/uL (130-400); RBC 3.14 m/cumm (4.50-6.00); RBC Distribution Width 16.2 % (11.8-14.1); White Blood Cell Count 20.79 k/cumm (4.4-10.8)
[2019-08-28] MEDS: ACETAMINOPHEN 1,000 MG/100 ML BTL 400 MG IVPB (16:37)
[2019-08-28 16:39] LABS: Absolute Monocyte Count 1.64 k/cumm (0.11-0.7); Absolute Neutrophil Count 18.54 k/cumm (1.2-6.7)
[2019-08-28 16:44] LABS: Prothrombin Time 12.5 sec (9.3-11.0)
[2019-08-28 16:48] LABS: ALT 13 U/L (16-63); AST 23 U/L (15-37); Albumin 2.6 g/dL (3.4-5.0); Alkaline Phosphatase 74 U/L (46-116); Anion Gap 9.8 mmol/L (3-11); BUN 14 mg/dL (7-18); Bilirubin, Total 0.5 mg/dL (0.2-1.0); CO2 29.2 mmol/L (21.0-32.0); CREATININE 1.82 mg/dL (0.70-1.30); Calcium 8.8 mg/dL (8.5-10.1); Chloride 100 mmol/L (98-107); Diff Comment Diff Reviewed; Estimated GFR 37.12 (mL/min/1.73m2); Glucose 120 mg/dL (74-106); INR 1.2 (0.9-1.1); Macrocytosis 1+; Sodium 139 mmol/L (136-145); Total Protein 7.2 g/dL (6.4-8.2)
[2019-08-28 16:49] LABS: NT-proBNP 940 pg/mL (<300); Troponin I < 0.05 ng/Ml (<0.06)
[2019-08-28] MEDS: PIPERACILLIN/TAZO 2.25 GM in Normal Saline 50 ML IVPB (17:03)
[2019-08-28 17:21] LABS: Clarity Cloudy (Clear)
[2019-08-28 17:28] LABS: Bacteria Packed HPF (Negative)
[2019-08-28 17:31] LABS: Specific Gravity 1.022 (1.005-1.025)
--- NOTE | 2019-08-28 17:32 | DI.CT_ITS ---
EXAM: CT HEAD WO CLINICAL HISTORY: confusion TECHNIQUE: COMPARISON: CT HEAD WO from 07/29/2019 FINDINGS: Noncontrast cranial CT was performed. There is moderate generalized cerebral atrophy. No evidence o f acute intracranial hemorrhage, mass effect, or midline shift. The orbital and temporal bone struct ures appear intact. Slight mucoperiosteal thickening maxillary and ethmoid sinuses noted. Mastoid a ir cells are clear. IMPRESSION: No evidence of acute intracranial process.
[2019-08-28 17:33] LABS: C & S Indicated? Yes
--- NOTE | 2019-08-28 17:35 | DI.RAD_ITS ---
EXAM: XR CHEST 2V PA LATERAL CLINICAL HISTORY: fever TECHNIQUE: The study was conducted according to the usual protocol. COMPARISON: XR CHEST 2V PA LATERAL from 04/15/2019 FINDINGS: The heart is not enlarged. There are apparent changes of COPD and pulmonary scarring. Comparison wi th prior chest radiograph of April 15 shows question interval development of patchy perihilar radiod ensities on the left, question vaguely nodular appearance. Minimal streaky right perihilar infiltrat es may also be present. No pleural effusion seen. No gross infiltrate identified on the lateral vie w. IMPRESSION: Question patchy bilateral perihilar infiltrates, question nodular appearance of some left perihilar i nfiltrates, intrapulmonary nodule not excluded. Follow-up PA and lateral chest radiograph requested following treatment and if the findings do not resolve, additional evaluation with chest CT would be recommended.
--- NOTE | 2019-08-28 17:45 | DI.VRAD_ITS ---
PROCEDURE INFORMATION: Exam: XR Chest, 2 Views Exam date and time: 08/28/2019 5:37 PM Age: 69 years old Clinical history: Fever TECHNIQUE: Imaging protocol: XR of the chest Views: 2 views. COMPARISON: CR XR CHEST 2V PA LATERAL 04/15/2019 6:26 PM FINDINGS: Lungs: Unremarkable. No consolidation. Pleural space: Unremarkable. No pleural effusion. No pneumothorax. Heart/Mediastinum: Unremarkable. No cardiomegaly. Bones/joints: Unremarkable. IMPRESSION: Unremarkable chest x-ray. Dictated and Authenticated by: Elver Schmidt MD. Ordering:WILMAR Rodriguez MD
--- NOTE | 2019-08-28 17:48 | DI.VRAD_ITS ---
PROCEDURE INFORMATION: Exam: CT Head Without Contrast Exam date and time: 08/28/2019 5:30 PM Age: 69 years old Clinical history: Other: Confusion TECHNIQUE: Imaging protocol: Computed tomography of the head without contrast. Radiation optimization: All CT scans at this facility use at least one of these dose optimization techniques: automated exposure control; mA and/or kV adjustment per patient size (includes targeted exams where dose is matched to clinical indication); or iterative reconstruction. COMPARISON: CT HEAD WO 07/29/2019 1:28 PM FINDINGS: Brain: No acute hemorrhage. No large vascular territory infarct. No mass effect. There is diffuse cerebral atrophy present, consistent with this patient's age. Ventricles: Normal. No ventriculomegaly. Bones/joints: Unremarkable. No acute fracture. Sinuses: Visualized sinuses are unremarkable. No fluid levels. Mastoid air cells: Visualized mastoid air cells are well aerated. Soft tissues: Unremarkable. IMPRESSION: No acute intracranial abnormality. Dictated and Authenticated by: Elver Schmidt MD. Ordering:WILMAR Rodriguez MD
[2019-08-28] MEDS: VANCOMYCIN 2,000 MG in Normal Saline 500 ML 250 MG IVPB (17:54)
[2019-08-28] MEDS: oxyCODONE 10 MG TAB 30 MG PO (18:42)
--- NOTE | 2019-08-28 19:49 | W.PM.HP.N ---
Date of service: 08/28/19 Time of Service: 19:50 Assessment and Plan Assessment and plan (1) Complicated UTI (urinary tract infection): Status: Acute Assessment and plan: I do not see need for Vancomycin. He has no evidence for pneumonia. However, because of his recent hospitalization, I will check for MRSA colonization. for now will give iv fluid hydration and continue Zosyn 4.5 GM iv Q8hr over slow infusion protocol. check results of blood and urine cultures. His last urine cultures from 07/29 grew E. hermanii which was pansensitive except to nitrofurantoin and ampicillin. I will also check renal ultrasound in the a.m. I think that he can tolerate slow rate of iv fluids particularly since he is not eating or drinking much and his echo and IVC ultrasound is not consistent w/ acute CHF. He has an elevated BNP but this may be due to COPD/pulmonary hypertension. He does not have a formal dx of COPD but he has significant smoking hx c/w COPD. (2) Sepsis: Status: Suspected Assessment and plan: probable sepsis from urinary source. continue Zosyn as outlined above. check urine and blood cultures. monitor renal function, mental status and hemodynamic status. He has metastatic disease that has been refractory to treatment and therefore would do poorly in the setting of cardiac or respiratory failure and therefore was made DNR/DNI in accordance w/ his wishes. Otherwise will aggressively treat for infection but not pursue invasive monitoring or intubation. I think that he will need further fluids and may need vasopressors if he fails to respond to iv fluids. I will add iv corticosteroid to his regimen. Qualifiers: Sepsis acute organ dysfunction status: without acute organ dysfunction Sepsis type: sepsis due to unspecified organism Qualified Code(s): A41.9 - Sepsis, unspecified organism (3) Metabolic encephalopathy: Status: Acute Assessment and plan: per Jennifer's evaluation of the patient his mental status has improved since his first presentation. He received a dose of his oxycodone in the ER and this may be contributing to his lethargy in addition to his infection. (4) Bladder cancer: Status: Acute Assessment and plan: Per Jennifer Piburn, the patient's spouse indicated that they would be interested in a Palliative care consult as they have been contemplating cessation of chemotherapy. On presentation he was still a full code for resuscitation but I spoke w/ the patient about treatment of cardiac or pulmonary arrest and he does not want to be intubated or have CPR or defibrillation. As such, I have changed his code status to DNR/DNI. 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 Patient also has a history of CHF, HTN, GERD, chronic back pain d/t DDD, spinal stenosis. He was recently hospitalized at [facility] [place] 07/29-08/08/2019 for SBO/ileus, UTI, dehydration and GAMALIEL associated w/ severe hypotension. He was treated at [facility] ER w/ iv fluids and Zosyn and was transferred to [facility] d/t refractory hypotension in setting of creatinine of 5 and pancytopenia d/t recent chemotherapy (carboplatin and Gemzar). His ileus resolved and his GAMALIEL improved although he has CKD and has a L. nephrostomy. While at [facility] [place] [place] he was treated w/ iv antibiotics for UTI and subsequently was found to have Campylobacter infection in his stools. He required TPN but eventually his ileus/ SBO resolved. He was discharged on 7 day course of Azithromycin for the Campylobacter. He now presents to the ER w/ acute mental status change in setting of fever of 40 C. He has no cough, chest pain, sputum production, abdominal pain. He was seen by EMS this morning d/t his 's concerns over his acute confusion and what was a low grade temperature at the time. However he declined to be brought to the ER. This afternoon he has gotten worse becoming very confused and was tachycardic (129) and tachypneic (RR 36) and febrile 40.2 C but not hypoxemic (SPO2 98%). He was seen by KATTY Troncoso (see her note for details) and underwent workup for sepsis in setting of advanced bladder CA w/ lung and spine mets and CKD. CXR was read as showing no abnormalities although both Jennifer and myself feel that there is an interstitial pattern to his CXR. Labs were pertinent for WBC 20,790, stable anemia Hb 9.4 GM, stable CKD w/ BUN 14 and creatinine 1.8. Lactate was mildly elevated at 1.7. LFT were normal. Troponin was <0.05. UA was cloudy,,pink and packed w/ bacteria. This was taken from his L. nephrostomy bag. CT of head w/out contrast was negative for acute pathology. He was treated w/ 1 L iv fluids (normal saline) and given Zosyn 2.25 gm IVPB and Vancomycin 1 gm for coverage of both UTI and what was believed to be a HCAP. Since admission, I have performed a POCUS exam of his lungs, heart and abdomen. His lungs show no consolidation, nor pleural effusions. He has primarily normal A line pattern bilaterally except a few B lines at left lung base. His LV function is normal to hyperrdynamic. His RV function is normal and not dilated and his IVC has greater than 50% respirophasic response to inspiration. His abdominal exam showed no free fluid and no hydronephrosis. I believe he has a complicated UTI d/t CKD necessitating a nephrostomy tube d/t his bladder/ureteral cancer. He is probably septic from his UTI and needs further volume resuscitation in addition to parenteral antibiotics for urosepsis. Review of Systems Unobtainable due to mental status (limited ROS d/t patient's hypersomnolence and decreased cognition) [facility] Medical History Arthritis of knee Arthritis of shoulder region, left, degenerative Back pain DDD (degenerative disc disease), lumbosacral GERD (gastroesophageal reflux disease) Headache Hx of congestive heart failure (Acute) Systolic CHF Hypertension Metastatic urothelial carcinoma (Acute) Osteoarthritis of spine with radiculopathy, lumbar region Sciatica Spinal stenosis of lumbar region Surgical History History of transurethral destruction of bladder lesion (Acute) TURBT 10/18/18 Hx of nephrostomy (Acute) Percutaneous tube placement L Vasectomy Family History Mother Blood clots in brain Father Heart disease Sister Cancer Sister No problems noted. Sister No problems noted. Sister No problems noted. Sister No problems noted. Brother No problems noted. Brother No problems noted. Brother No problems noted. Brother No problems noted. Brother No problems noted. Daughter No problems noted. Daughter No problems noted. Daughter No problems noted. Social History Smoking/Tobacco Use Status: Current every day Tobacco Type: cigarettes Tobacco: How many years used: 50 Alcohol Intake: never Drug use: Never Substance use type: does not use Do you feel safe at home: Yes Do you feel safe in your relationship?: Yes Meds Home Medications and Allergies Home Medications Medication Instructions Recorded Confirmed Type prochlorperazine maleate 10 mg PO Q6H PRN 01/27/19 08/28/19 History sennosides-docusate sodium 1 tab PO BID PRN 01/27/19 08/28/19 History [Senexon-S] albuterol sulfate 2 puff INHALATION QID PRN 04/15/19 08/28/19 History esomeprazole magnesium 40 mg PO DAILY 04/15/19 08/28/19 History finasteride 5 mg PO DAILY 04/15/19 08/28/19 History tamsulosin 0.4 mg PO DAILY 04/15/19 08/28/19 History gabapentin 600 mg PO BID 07/29/19 08/28/19 History lorazepam 0.5 mg PO Q6H PRN 07/29/19 08/28/19 History acetaminophen [Tylenol] 325 mg PO Q6H PRN PRN 08/28/19 08/28/19 History aspirin [Aspirin Childrens] 1 tab PO DAILY 08/28/19 08/28/19 History oxycodone 20 mg PO Q4H PRN PRN 08/28/19 08/28/19 History oxycodone 30 mg PO TID 08/28/19 08/28/19 History phenazopyridine [Pyridium] 100 mg PO TID 08/28/19 08/28/19 History Allergies Allergy/AdvReac Type Severity Reaction Status Date / Time No Known Allergies Allergy Unverified 08/28/19 17:28 Exam Narrative Exam Narrative: Elderly male lying in bed in semi-Rome position, snoring but easily awakens. He is oriented to person and place but not to time although he thought that it was 2019 but knew that today is Thanksgiving. he quickly drifts to sleep during my interview and he is a poor historian although he related to me that he was just at [facility], he knew that he was there about something to do with his bowels. HEENT is remarkable for dry oral mucosa w/out thrush or exudates, he is edentulous Neck is supple w/out JVD, LN, or thyromegaly; no meningismus Lungs are remarkable for diffuse wheezes w/out rhonchi or rales; no dullness to percussion Heart is regular w/out murmur, rub or gallops. No palpable thrill or heave Abdomen is obese, protuberant, soft and nontender; no bruits, no palpable masses or organomegaly Lower extermities w/ 2+ bilateral pitting edema over pretibial surfaces and ankles and feet; poor pedal pulses w/out cyanosis Neurologic exam is non-focal; no dysarthric speech, no facial asymmetry and no focal motor deficits. Genitalia and rectal exam deferred. Results Imaging Chest x-ray: image reviewed Labs Result diagrams: 08/29/19 06:35 08/28/19 16:15 Labs: Laboratory Results - last 24 hr 08/28/19 08/28/19 08/28/19 16:15 16:15 16:15 WBC 20.79 H RBC 3.14 L Hgb 9.4 L Hct 30.1 L MCV 95.9 H MCH 29.9 MCHC 31.2 L RDW 16.2 H Plt Count 307 MPV 8.7 Immature Gran % 0.5 Neutrophils % 89.2 Lymphocytes % 2.4 Monocytes % 7.9 Eosinophils % 0.0 Basophils % 0.0 Absolute Neutrophils 18.54 H Absolute Lymphocytes 0.50 L Absolute Monocytes 1.64 H Absolute Eosinophils 0.00 Absolute Basophils 0.00 Differential Comment Diff reviewed RBC Morphology See below Macrocytosis 1+ PT INR Sodium 139 Potassium 4.0 Chloride 100 Carbon Dioxide 29.2 Anion Gap 9.8 BUN 14 Creatinine 1.82 H Estimated GFR/1.73 m2 37.12 Glucose 120 H Lactate 1.7 H Calcium 8.8 Total Bilirubin 0.5 AST 23 ALT 13 L Alkaline Phosphatase 74 Troponin I NT-Pro-B Natriuret Pep Total Protein 7.2 Albumin 2.6 L Urine Color Urine Clarity Urine pH Ur Specific [place] Urine Protein Urine Ketones Urine Blood Urine Nitrite Urine Bilirubin Urine Urobilinogen Ur Leukocyte Esterase Urine RBC Urine WBC Ur Epithelial Cells Urine Crystals Urine Bacteria Urine Mucus Ur Culture Indicated? Urine Glucose 08/28/19 08/28/19 08/28/19 16:15 16:15 16:55 WBC RBC Hgb Hct MCV MCH MCHC RDW Plt Count MPV Immature Gran % Neutrophils % Lymphocytes % Monocytes % Eosinophils % Basophils % Absolute Neutrophils Absolute Lymphocytes Absolute Monocytes Absolute Eosinophils Absolute Basophils Differential Comment RBC Morphology Macrocytosis PT 12.5 H INR 1.2 H Sodium Potassium Chloride Carbon Dioxide Anion Gap BUN Creatinine Estimated GFR/1.73 m2 Glucose Lactate Calcium Total Bilirubin AST ALT Alkaline Phosphatase Troponin I < 0.05 NT-Pro-B Natriuret Pep 940 Total Protein Albumin Urine Color [place] Urine Clarity Cloudy Urine pH Not Applicable Ur Specific [place] 1.022 Urine Protein Not Applicable Urine Ketones Not Applicable Urine Blood Not Applicable Urine Nitrite Not Applicable Urine Bilirubin Not Applicable Urine Urobilinogen Not Applicable Ur Leukocyte Esterase Not Applicable Urine RBC Urine WBC Ur Epithelial Cells Not Applicable Urine Crystals Not Applicable Urine Bacteria Packed Urine Mucus Not Applicable Ur Culture Indicated? Yes Urine Glucose Not Applicable Last Vital Signs Temp 36.4 C L 08/28/19 18:55 Pulse 93 H 08/28/19 18:46 Resp 21 08/28/19 18:50 BP 94/59 L 08/28/19 18:46 Pulse Ox 96 08/28/19 18:50
[2019-08-28 22:22] LABS: Lactate 1.2 mmol/L (0.6-1.4)
[2019-08-28] MEDS: Normal Saline 1,000 ML 85 ML IV (22:58)
[2019-08-28] MEDS: Normal Saline Flush 10 ML SYR IVP (22:59)
[2019-08-28 23:00] LABS: Procalcitonin 4.3 ng/mL
[2019-08-29] VITALS (18 sets, daily range): BP systolic 107–140; BP diastolic 60–90; PULSE 72–118; RESP 2–34; TEMP 35.7–38.9; O2SAT 98–100
[2019-08-29] MEDS: PIPERACILLIN/TAZO 4.5 GM in Normal Saline 100 ML IVPB ×3 (00:12→21:53)
[2019-08-29] MEDS: Normal Saline 1,000 ML 250 ML IV (01:00)
[2019-08-29] MEDS: Normal Saline Flush 10 ML SYR IVP ×2 (01:17→17:45)
[2019-08-29] MEDS: ACETAMINOPHEN 1,000 MG/100 ML BTL 400 MG IVPB (01:17)
[2019-08-29] MEDS: Albuterol/Ipratropium 3 ML UPD VIAL UPD ×4 (01:18→13:44)
[2019-08-29] MEDS: Hydrocortisone SOD SUC. 100 MG VIAL IVP (01:18)
[2019-08-29] MEDS: THIAMINE 100 MG in Normal Saline 100 ML 200 MG IVPB ×2 (02:14→09:39)
[2019-08-29] MEDS: Enoxaparin 30 MG/0.3 ML SYR SC (02:26)
[2019-08-29] MEDS: Hydrocortisone SOD SUC. 100 MG VIAL 50 MG IVP ×2 (06:16→12:35)
[2019-08-29 06:53] LABS: Abs Immature Grans 0.06 k/cumm (0.0-0.09); Absolute Lymphocyte Count 0.68 k/cumm (1.2-3.4); Absolute Monocyte Count 0.39 k/cumm (0.11-0.7); Basophils % 0.1; HCT 24.9 % (40.0-50.0); HGB 7.6 g/dL (13.5-17.5); Immature Grans % 0.4; Lactate 1.2 mmol/L (0.6-1.4); Lymphocytes % 4.2; Mean Corp. HGB Concentration 30.5 g/dL (32.0-36.0); Mean Corpuscular Hemoglobin 29.5 pg (27.0-33.0); Mean Corpuscular Volume 96.5 fL (80-95); Mean Platelet Volume 8.5 fL (8.0-11.0); Monocytes % 2.4; Neutrophils % 92.9; Platelet Count 296 x1000/uL (130-400); RBC 2.58 m/cumm (4.50-6.00); RBC Distribution Width 16.3 % (11.8-14.1); White Blood Cell Count 16.25 k/cumm (4.4-10.8)
[2019-08-29 06:54] LABS: Absolute Basophil Count 0.02 k/cumm (0.0-0.2)
[2019-08-29 07:02] LABS: BUN 19 mg/dL (7-18); CREATININE 1.92 mg/dL (0.70-1.30); Chloride 104 mmol/L (98-107); Glucose 160 mg/dL (74-106); Potassium 4.1 mmol/L (3.5-5.1); Sodium 140 mmol/L (136-145)
[2019-08-29] MEDS: Normal Saline 1,000 ML 150 ML IV (08:41)
--- NOTE | 2019-08-29 09:35 | DI.US_ITS ---
EXAM: US RENAL CLINICAL HISTORY: complex UTI. CKD, bladder CA, s/p nephrostomy tube TECHNIQUE: Ultrasound performed using standard protocol. COMPARISON: CT CHEST/ABD/PEL WO from 07/29/2019 FINDINGS: Renal ultrasound was performed according to the usual protocol. Urinary bladder is incompletely visu alized, presumed ureteral stent in position in the urinary bladder. The urinary bladder wall is thick ened and poorly visualized. There is bilateral hydronephrosis, mild to moderate. There is 4.3 cm in greatest diameter upper pole right renal cyst. There is probable lower pole right renal calculus, this appears to been present o n recent CT. No other significant focal findings. IMPRESSION: Mild to moderate bilateral hydronephrosis. Presumed left ureteral stent in position, please correlat e clinically. The ultrasound examination was technically very limited. Follow-up CT may be obtained if clinically indicated.
[2019-08-29] MEDS: Ascorbic Acid 500 MG TAB 1000 MG PO (09:40)
[2019-08-29] MEDS: Phenazopyridine 100 MG TAB PO ×2 (09:40→13:24)
[2019-08-29] MEDS: Aspirin 81 MG CHEW PO (09:40)
[2019-08-29] MEDS: Finasteride 5 MG TAB PO (09:40)
[2019-08-29] MEDS: Gabapentin 600 MG TAB PO ×2 (09:40→20:10)
[2019-08-29] MEDS: Tamsulosin 0.4 MG CAPCR PO (09:40)
[2019-08-29] MEDS: Esomeprazole 40 MG CAPCR PO (09:40)
--- NOTE | 2019-08-29 10:31 | INITIAL_ITS ---
- If Service Date Differs Date of service: 08/29/19 Time of Service: 10:31 Care Management Initial Assess REASON FOR HOSPITALIZATION:: Sepsis. PAST MEDICAL HISTORY/PAST SURGICAL HISTORY:: Medical History: Arthritis of knee, Arthritis of shoulder region, left, denerative, Back pain, DDD (degenerative disc disease), lumbosacral, GERD (gastroesophageal reflux disease), Headache, Hx of congestive heart failure (Acute) - Systolic CHF, Hypertension, Metastatic urothelial carcinoma (Acute). Osteoarthritis of spine with radiculopathy, lumbar region, Sciatica, and Spinal stenosis of lumbar region. Surgical History: History of transurethral destruction of bladder lesion (Acute) - TURBT 10/18/18, Hx of nephrostomy (Acute) - Percutaneous tube placement L, and Vasectomy. PREVIOUS FUNCTIONAL STATUS/SOCIAL/FAMILY SUPPORTS:: Long lives in [place] with his graphic art sales representative, Joceline. 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 He shares his plan was to retire at the age of 70, but states he was forced to give up his job at 67 years old due to becoming too ill to continue working. Long has three daughters and one son, three of whom live nearby. Long names his partner and children as sources of support for him. Long reports he hasn't driven a car in several months and says Joceline drives him places he needs to go. He also shares that he never learned to read or write and depends on his partner, Joceline, to read and fill out forms for him. CURRENT FUNCTIONAL STATUS:: Long is lying in bed watching television when CM comes to meet with him. He is pleasant and easily engages in conversation. He states he is feeling better and hopes to be discharged home tomorrow. ADVANCE DIRECTIVES:: None on file. Has patient been provided with information about the portal?: Yes Did the patient sign up for the portal?: No CODE STATUS:: DNR/DNI INSURANCE COVERAGE / FINANCIAL ISSUES:: [employer] and Medicare. CURRENT HOME/COMMUNITY SERVICES/EQUIPMENT:: Long has Home Health nursing services. He states he ambulates at home with a walker or a cane. He denies having any other community services or equipment. PRIMARY CARE PHYSICIAN:: Delonte Turpin DO ([facility]). POTENTIAL DISCHARGE NEEDS:: Anticipate new orders for Home Health nursing services at time of discharge. PATIENT/FAMILY EDUCATION NEEDS:: Review discharge plan, limitations, follow up plan, including Ask Me Three and self-management. ANTICIPATED BARRIERS TO DISCHARGE:: None. TRANSPORTATION:: Long's graphic art sales representative, Joceline, will transport him home via private vehicle when ready. PLAN:: Long will be discharged home when medically cleared by provider. Anticipate new orders for Home Health nursing at time of discharge. Long's graphic art sales representative, Joceline, will transport him home via private vehicle when ready.
[2019-08-29 12:47] LABS: HCT 26.6 % (40.0-50.0); HGB 8.2 g/dL (13.5-17.5)
[2019-08-29] MEDS: oxyCODONE 10 MG TAB 20 MG PO (13:25)
--- NOTE | 2019-08-29 13:42 | PHARADMIT ---
Addendum entered by Lorna Huang 08/31/19 11:20: Pharmacy Note Subjective Metastatic Prostate/bladder cancer, complicated UTI, nephrostomy tube in place urine is clear today, edema Objective BP 172/92, afebrile, pain 8, K+ 3.7, Mag 1.3, SCr 1.24, H/H 9.3/29.4 (rec'd blood yesterday) Procalcitonin down 2.0 Assessment Zosyn dc'd, changed to Levaquin day#2 (CrCl~52ml/min) Mag 4gram IV x1 IVF's with KCL dc'd Dilaudid, Gabapentin, Oxycontin 40mg PO Q8H, Prednisone, APAP for pain control Oxy IR(ON HOLD) increased bowel meds (diarrhea) Lasix IVP x 1 Chest xray: no findings CT abdomen: nephrostomy tubes look good, nonobstructive 5mm renal stone, stable bladder mass present w/metastasis Lovenox dc'd due to low H/H yesterday, hematuria. Aspirin on hold-watch for restart Plan follow lytes, pain control/meds, diuresis, weight, Anbx de-escalation and IV to oral Addendum entered by Lorna Huang 08/30/19 14:01: Pharmacy Note Subjective Urosepsis and recent [facility] [place], clogged Nephrostomy tube? Objective BP 152/68, HR 78, Afebrile, K+ 3.3, SCR 1.5 (CrCl~43ml/min), WBC 15.0, H/H 7.4/24 Procalcitonin 4.3 Micro Urine: Escherichia Hermanii>100K covered by Zosyn Micro blood: no growth x24 MRSA nare and flu swab negative Assessment Hematuria is from stage-4 bladder cancer-being actively treated @ [facility], urine orange colored Zosyn continues day#2 Q8h Potassium 40meq po x1 ?Lovenox continues Plan follow Micro, H/H, lytes, Anbx de-escalation w/PCT levels Original Note: Admission Pharmacy Clinical Review sepsis Code Status DNR/DNI Current Weight 86 kg Renally Cleared and Narrow Therapeutic Index Meds Crcl ~38.1 mL/min using adjusted body weight phenazopyridine- mfg labeling contraindicated with renal impairment; other recommendations include avoiding use for GFR <50 mL/min. zosyn okay as extended infusion dosing QTc Value / Action Taken QTc 444 BP Control, Fever BP 113/67 tmax 40.2 yesterday afternoon Electrolytes reviewed within normal limits DVT Prophylaxis enoxaparin Opiate Usage / Scheduled Bowel Regimen Ordered prn/prn Plt/SCr for Heparin / Enoxaparin plt 296 SCr 1.92 INR for Warfarin n/a H/H stable, WBC/Bands h/h 8.2/26.6 WBC 16.25 Antibiotic appropriateness zosyn to cover for UTI Cultures and Sensitivities blood and urine cultures pending MRSA screen pending rapid flu-negative Surgical ABX d/c within 24 hr n/a DM control / Insulin Dosing BG 160 none Heart Failure (Check EF%) (SUSIE's, B-Block, Diuretics) none IV to PO Switch n/a Home Meds 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
--- NOTE | 2019-08-29 16:17 | W.PM.PROGNOT ---
Date of Service Date of service: 08/29/19 Time of Service: 16:17 Assessment and Plan Assessment and plan (1) Sepsis: Status: Suspected Assessment and plan: There was initial concern about sepsis from a urinary source. Dr. Dunlap had appropriately started empiric antibiotics, Zosyn. Urine culture shows a preliminary result of gram-negative rods and gram-positive yosvany mixed. Further delineation is pending. We will continue empiric antibiotic therapy. Given his blood pressure and mental status have stabilized will DC Solu-Medrol, thiamine, continue oral vitamin C for now. Qualifiers: Sepsis type: sepsis due to unspecified organism Sepsis acute organ dysfunction status: without acute organ dysfunction Qualified Code(s): A41.9 - Sepsis, unspecified organism (2) Metabolic encephalopathy: Status: Acute Assessment and plan: Patient was encephalopathic on arrival but that has improved with better urinary drainage and antibiotic therapy. Repeat labs in the a.m. (3) Complicated UTI (urinary tract infection): Status: Acute Assessment and plan: Patient has had a complicated UTI with an 8-day admission to [facility], 07/29 through 08/08/2019. At that time he had a Campylobacter jejuni infection. The present admission appears to be more related to acute urinary obstruction. The bilateral hydronephrosis appears to be worse than on previous imaging. We will continue to monitor renal function and urinary output. It appears drainage from the nephrostomy tube is better using the bedside drainage bag. Continue the Zosyn for now. (4) Anemia: Status: Chronic Assessment and plan: Patient presented with a hemoglobin of 9.4 which dropped to 7.6 overnight with IV hydration. He does appear to have some hematuria likely from the bladder cancer. Repeat hemoglobin came up to 8.2. We will guaiac stools and continue to trend the hemoglobin level. Monitor for evidence of ongoing bleeding. 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 He is still receiving active palliative chemotherapy. He saw Dr. Araiza on 08/19 and there was discussion of adding a biologic to his chemotherapy regimen. There was also discussion of involving palliative care. He remains DNR DNI. Continue to monitor in acute care status. Qualifiers: Bladder location: unspecified site Qualified Code(s): C67.9 - Malignant neoplasm of bladder, unspecified Subjective Subjective Interval history since last seen: Patient was admitted overnight with acute mental status change. This morning he was lethargic and disoriented. Nursing notes he was switched from leg bag drainage of his nephrostomy tube to a bedside drainage bag. Almost immediately a large amount of urine appeared in the bag. There is some suspicion that the leg bag had become occluded. Since that time his mental status has improved. He is now taking p.o. well and is considerably more alert. His partner, Joceline Cornell, feels he is nearly back to baseline. He had been taking his oxycodone 3 times daily scheduled plus every 4 hours for breakthrough pain. His partner is concerned that he has been having some pain. His meds were adjusted today. Exam Narrative Exam Narrative: On exam he is sitting up in bed, alert. He has no respiratory distress at all. Lung sounds are clear on the right and left. Heart sounds are regular, no murmur appreciated. His abdomen is overall soft and nontender. The left nephrostomy tube appears intact at the site and is draining orange-colored urine. There is no surrounding erythema or bruising. The lower extremities show no significant edema. Objective Objective Clinical Data: Abnormal lab results 08/28/19 08/28/19 08/28/19 Range/Units 16:15 16:15 16:15 WBC 20.79 H (4.4-10.8) k/cumm RBC 3.14 L (4.50-6.00) m/cumm Hgb 9.4 L (13.5-17.5) g/dL Hct 30.1 L (40.0-50.0) % MCV 95.9 H (80-95) fL MCHC 31.2 L (32.0-36.0) g/dL RDW 16.2 H (11.8-14.1) % Absolute Neutrophils 18.54 H (1.2-6.7) k/cumm Absolute Lymphocytes 0.50 L (1.2-3.4) k/cumm Absolute Monocytes 1.64 H (0.11-0.7) k/cumm PT (9.3-11.0) sec INR (0.9-1.1) BUN (7-18) mg/dL Creatinine 1.82 H (0.70-1.30) mg/dL Glucose 120 H (74-106) mg/dL Lactate 1.7 H (0.6-1.4) mmol/L Calcium (8.5-10.1) mg/dL ALT 13 L (16-63) U/L Albumin 2.6 L (3.4-5.0) g/dL 08/28/19 08/29/19 08/29/19 Range/Units 16:15 06:35 06:35 WBC 16.25 H (4.4-10.8) k/cumm RBC 2.58 L (4.50-6.00) m/cumm Hgb 7.6 L (13.5-17.5) g/dL Hct 24.9 L (40.0-50.0) % MCV 96.5 H (80-95) fL MCHC 30.5 L (32.0-36.0) g/dL RDW 16.3 H (11.8-14.1) % Absolute Neutrophils 15.10 H (1.2-6.7) k/cumm Absolute Lymphocytes 0.68 L (1.2-3.4) k/cumm Absolute Monocytes (0.11-0.7) k/cumm PT 12.5 H (9.3-11.0) sec INR 1.2 H (0.9-1.1) BUN 19 H (7-18) mg/dL Creatinine 1.92 H (0.70-1.30) mg/dL Glucose 160 H (74-106) mg/dL Lactate (0.6-1.4) mmol/L Calcium 8.0 L (8.5-10.1) mg/dL ALT (16-63) U/L Albumin (3.4-5.0) g/dL 08/29/19 Range/Units 12:19 WBC (4.4-10.8) k/cumm RBC (4.50-6.00) m/cumm Hgb 8.2 L (13.5-17.5) g/dL Hct 26.6 L (40.0-50.0) % MCV (80-95) fL MCHC (32.0-36.0) g/dL RDW (11.8-14.1) % Absolute Neutrophils (1.2-6.7) k/cumm Absolute Lymphocytes (1.2-3.4) k/cumm Absolute Monocytes (0.11-0.7) k/cumm PT (9.3-11.0) sec INR (0.9-1.1) BUN (7-18) mg/dL Creatinine (0.70-1.30) mg/dL Glucose (74-106) mg/dL Lactate (0.6-1.4) mmol/L Calcium (8.5-10.1) mg/dL ALT (16-63) U/L Albumin (3.4-5.0) g/dL Vital Signs Temperature 37.2 C 08/29/19 15:57 Temperature Source Tympanic 08/29/19 15:57 Pulse 99 H 08/29/19 15:57 Pulse Rhythm Regular 08/29/19 07:30 Pulse 97 H 08/28/19 18:50 Respiratory Rate 18 08/29/19 15:57 Respiratory Effort 08/29/19 13:48 Respiratory Depth Shallow 08/29/19 13:48 Respiratory Pattern Normal 08/29/19 13:48 Blood Pressure 112/60 08/29/19 15:57 Blood Pressure Mean 67 08/28/19 18:46 Blood Pressure Position Sitting 08/28/19 15:49 Pulse Oximetry 99 08/29/19 15:57 Oxygen Delivery Method Room Air 08/29/19 15:57 Oxygen Flow Rate 0 08/29/19 15:57 Pain Level 0 08/29/19 15:57 Comment 08/29/19 09:15 Intake & Output 08/28/19 08/29/19 08/29/19 23:59 11:59 23:59 Intake Total 1650 / 1650 2451.000 / 3192.000 741 / 3192.000 Output Total 50 / 50 125 / 775 650 / 775 Balance 1600 / 1600 2326.000 / 2417.000 91 / 2417.000 Weight 86 kg Intake: IV 1650 / 1650 2451.000 / 2552.000 101 / 2552.000 Oral 640 / 640 Output: Urine 50 / 50 125 / 775 650 / 775 Other: Urine Color Yellow Light Jeny Dark Jeny Light Jeny Dark Jeny Urine Appearance Clear Sediment Sediment Mucous Threads Comment urostomy. small clots to urostomy tubing discontinued leg bag at this time and placed nephrostomy tube to large orozco bag. large amount of urine noted to flow into large bag. Stool Size Moderate Moderate Stool Characteristics Soft Soft Formed Formed Laboratory Results WBC 16.25 k/cumm (4.4-10.8) H 08/29/19 06:35 RBC 2.58 m/cumm (4.50-6.00) L 08/29/19 06:35 Hgb 8.2 g/dL (13.5-17.5) L 08/29/19 12:19 Hct 26.6 % (40.0-50.0) L 08/29/19 12:19 MCV 96.5 fL (80-95) H 08/29/19 06:35 MCH 29.5 pg (27.0-33.0) 08/29/19 06:35 MCHC 30.5 g/dL (32.0-36.0) L 08/29/19 06:35 RDW 16.3 % (11.8-14.1) H 08/29/19 06:35 Plt Count 296 x1000/uL (130-400) 08/29/19 06:35 MPV 8.5 fL (8.0-11.0) 08/29/19 06:35 Immature Gran % 0.4 08/29/19 06:35 Neutrophils % 92.9 08/29/19 06:35 Lymphocytes % 4.2 08/29/19 06:35 Monocytes % 2.4 08/29/19 06:35 Eosinophils % 0.0 08/29/19 06:35 Basophils % 0.1 08/29/19 06:35 Absolute Neutrophils 15.10 k/cumm (1.2-6.7) H 08/29/19 06:35 Absolute Lymphocytes 0.68 k/cumm (1.2-3.4) L 08/29/19 06:35 Absolute Monocytes 0.39 k/cumm (0.11-0.7) 08/29/19 06:35 Absolute Eosinophils 0.00 k/cumm (0.0-0.7) 08/29/19 06:35 Absolute Basophils 0.02 k/cumm (0.0-0.2) 08/29/19 06:35 Differential Comment Diff reviewed 08/28/19 16:15 RBC Morphology See below 08/28/19 16:15 Macrocytosis 1+ 08/28/19 16:15 PT 12.5 sec (9.3-11.0) H 08/28/19 16:15 INR 1.2 (0.9-1.1) H 08/28/19 16:15 Sodium 140 mmol/L (136-145) 08/29/19 06:35 Potassium 4.1 mmol/L (3.5-5.1) 08/29/19 06:35 Chloride 104 mmol/L (98-107) 08/29/19 06:35 Carbon Dioxide 25.0 mmol/L (21.0-32.0) 08/29/19 06:35 Anion Gap 11.0 mmol/L (3-11) 08/29/19 06:35 BUN 19 mg/dL (7-18) H 08/29/19 06:35 Creatinine 1.92 mg/dL (0.70-1.30) H 08/29/19 06:35 Estimated GFR/1.73 m2 34.90 (mL/min/1.73m2) 08/29/19 06:35 Glucose 160 mg/dL (74-106) H 08/29/19 06:35 Lactate 1.2 mmol/L (0.6-1.4) 08/29/19 06:35 Calcium 8.0 mg/dL (8.5-10.1) L 08/29/19 06:35 Total Bilirubin 0.5 mg/dL (0.2-1.0) 08/28/19 16:15 AST 23 U/L (15-37) 08/28/19 16:15 ALT 13 U/L (16-63) L 08/28/19 16:15 Alkaline Phosphatase 74 U/L (46-116) 08/28/19 16:15 Troponin I < 0.05 ng/Ml (<0.06) 08/28/19 16:15 NT-Pro-B Natriuret Pep 940 pg/mL (<300) 08/28/19 16:15 Total Protein 7.2 g/dL (6.4-8.2) 08/28/19 16:15 Albumin 2.6 g/dL (3.4-5.0) L 08/28/19 16:15 Procalcitonin 4.3 ng/mL 08/28/19 22:15 Urine Color [place] (Yellow) 08/28/19 16:55 Urine Clarity Cloudy (Clear) 08/28/19 16:55 Urine pH Not Applicable 08/28/19 16:55 Ur Specific [place] 1.022 (1.005-1.025) 08/28/19 16:55 Urine Protein Not Applicable 08/28/19 16:55 Urine Ketones Not Applicable 08/28/19 16:55 Urine Blood Not Applicable 08/28/19 16:55 Urine Nitrite Not Applicable 08/28/19 16:55 Urine Bilirubin Not Applicable 08/28/19 16:55 Urine Urobilinogen Not Applicable 08/28/19 16:55 Ur Leukocyte Esterase Not Applicable 08/28/19 16:55 Urine RBC HPF (0-2) 08/28/19 16:55 Urine WBC HPF (0-5) 08/28/19 16:55 Ur Epithelial Cells Not Applicable 08/28/19 16:55 Urine Crystals Not Applicable 08/28/19 16:55 Urine Bacteria Packed HPF (Negative) 08/28/19 16:55 Urine Mucus Not Applicable 08/28/19 16:55 Ur Culture Indicated? Yes 08/28/19 16:55 Urine Glucose Not Applicable 08/28/19 16:55 Reviewed Pertinent PMH: Yes Objective Narrative Objective Narrative: A renal ultrasound today showed evidence of bilateral hydronephrosis. The urinary bladder was poorly visualized. There is a question of a left ureteral stent, (no record of stent placement on review of [facility] record). The repeat H&H shows a hemoglobin came up from 7.6 to 8.2.
[2019-08-29] MEDS: Normal Saline 1,000 ML 125 ML IV (17:02)
[2019-08-29] MEDS: Acetaminophen 325 MG TAB PO (18:56)
[2019-08-29] MEDS: oxyCODONE 15 MG TAB 30 MG PO (21:53)
[2019-08-30] VITALS (10 sets, daily range): BP systolic 132–156; BP diastolic 68–88; PULSE 70–107; RESP 18–22; TEMP 36.3–38; O2SAT 98–100
[2019-08-30] MEDS: Enoxaparin 30 MG/0.3 ML SYR SC (02:05)
[2019-08-30] MEDS: Acetaminophen 325 MG TAB PO (04:39)
[2019-08-30] MEDS: Prochlorperazine 10 MG TAB PO (04:39)
[2019-08-30] MEDS: Normal Saline 1,000 ML 125 ML IV (05:32)
[2019-08-30] MEDS: PIPERACILLIN/TAZO 4.5 GM in Normal Saline 100 ML IVPB (06:00)
[2019-08-30] MEDS: oxyCODONE 15 MG TAB 30 MG PO ×2 (06:27→14:32)
[2019-08-30 07:03] LABS: Abs Immature Grans 0.09 k/cumm (0.0-0.09); Absolute Eosinophil Count 0.03 k/cumm (0.0-0.7); Absolute Lymphocyte Count 0.86 k/cumm (1.2-3.4); Absolute Neutrophil Count 13.11 k/cumm (1.2-6.7); Eosinophils % 0.2; HGB 7.4 g/dL (13.5-17.5); Immature Grans % 0.6; Lymphocytes % 5.7; Mean Corp. HGB Concentration 30.8 g/dL (32.0-36.0); Mean Corpuscular Hemoglobin 29.6 pg (27.0-33.0); Mean Platelet Volume 9.2 fL (8.0-11.0); Monocytes % 6.1; Neutrophils % 87.4; Platelet Count 281 x1000/uL (130-400); RBC Distribution Width 16.1 % (11.8-14.1)
[2019-08-30 07:04] LABS: BUN 19 mg/dL (7-18); Calcium 7.9 mg/dL (8.5-10.1); Chloride 108 mmol/L (98-107); Glucose 131 mg/dL (74-106); Potassium 3.3 mmol/L (3.5-5.1); Sodium 141 mmol/L (136-145)
[2019-08-30 07:13] LABS: Absolute Monocyte Count 0.92 k/cumm (0.11-0.7)
[2019-08-30 07:21] LABS: Procalcitonin 4.3 ng/mL
[2019-08-30] MEDS: Aspirin 81 MG CHEW PO (07:56)
[2019-08-30] MEDS: Ascorbic Acid 500 MG TAB 1000 MG PO (07:56)
[2019-08-30] MEDS: Finasteride 5 MG TAB PO (07:56)
[2019-08-30] MEDS: Gabapentin 600 MG TAB PO ×2 (07:56→19:44)
[2019-08-30] MEDS: Tamsulosin 0.4 MG CAPCR PO (07:56)
[2019-08-30] MEDS: Esomeprazole 40 MG CAPCR PO (07:57)
--- NOTE | 2019-08-30 10:15 | PDOC.CMPRO ---
- If Service Date Differs Date of service: 08/30/19 Time of Service: 10:15 Care Management Progress Note S/O: Long is lying in bed watching television when CM comes to meet with him. His airplane flight attendant, Joceline, is present in the room. He reports he is doing much better since his nephrostomy tube leg drainage bag was changed to a bedside drainage bag. He states he has been getting up and walking around and is also spending part of the day sitting in the chair in his room. He feels ready to go home and hopes to be discharged from the hospital either today or tomorrow. CM will continue to follow. A: Long is a 69 year old male admitted to [facility] on 08/28/2019 for sepsis. P: Long will return home when medically cleared by provider. He will need a new order for Home Health nursing upon discharge and will resume chemotherapy treatments at [facility]. His airplane flight attendant, Joceline, will transport him home via private vehicle when ready. CM will continue to follow and to support discharge planning needs.
[2019-08-30] MEDS: oxyCODONE 10 MG TAB 20 MG PO ×2 (11:07→16:34)
--- NOTE | 2019-08-30 14:39 | W.PM.PROGNOT ---
Date of Service Date of service: 08/30/19 Time of Service: 14:39 Assessment and Plan Assessment and plan (1) Sepsis: Status: Suspected Assessment and plan: Likely due to a complicated UTI (present on admission), with culture positive for Escherichia hermanii, with evidence of a clogged nephrostomy tube, likely contributing to difficulty clearing the infection. Blood cultures are negative. Mental status normalized. Procalcitonin has not budged despite 3 days of zosyn - will change to levofloxacin. Continue to monitor fever curve. Qualifiers: Sepsis type: sepsis due to unspecified organism Sepsis acute organ dysfunction status: without acute organ dysfunction Qualified Code(s): A41.9 - Sepsis, unspecified organism (2) Complicated UTI (urinary tract infection): Status: Acute Assessment and plan: As above; With evidence of hydronephrosis bilaterally on this admission - will repeat US on Sunday and consult urology. S/p complicated UTI with an 8-day admission to [facility], 07/29 through 08/08/2019 (Cx with Campylobacter jejuni). (3) Abdominal pain: Status: Acute Assessment and plan: With h/o recent bowel obstruction and current physical exam, I think it is important to rule out recurrence of bowel obstruction. Obtain Flat and Upright films of the abdomen. Downgrade diet to clears. Consider surgical consult based on results of the Flat/upright films. (4) Metabolic encephalopathy: Status: Resolved Assessment and plan: resolved w/ unclogging of the nephrostomy tube/decompression of L kidney and antibiotic therapy. Continue to monitor mental status. (5) Anemia: Status: Chronic Assessment and plan: Acute on chronic, now to the point that he could benefit from 1 unit of pRBC's. Etiology: chronic disease, blood loss of hematuria, dilutional - likely all combined. For transfusion of 1 unit of pRBC's today. 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 Pt of Dr. Araiza. Palliative care consulted. DNR/DNI. Consulting urology and repeating imaging - as above Qualifiers: Bladder location: unspecified site Qualified Code(s): C67.9 - Malignant neoplasm of bladder, unspecified (7) Hypokalemia: Status: Acute Assessment and plan: Replete (8) DVT prophylaxis: Status: Acute Assessment and plan: TEDs + SCD's. Will hold lovenox due to worsening anemia and hematuria (9) Discharge planning issues: Status: Acute Assessment and plan: DNR/DNI Palliative care consulted. Subjective Subjective Interval history since last seen: Mr Miller states that he is having RUQ pain - feels a lot like when he had his bowel obstruction at [facility]. He has been able to pass flatus, but no BM since yesterday. He also had a lower abdominal pain which resolved with heat and passing of flatus. He denies dizziness, chest pain, feels short of breath. Denies nausea. No more blood seen in urine today. Per nursing, he looks a lot better today than he did yesterday. Agrees to receive a transfusion of 1 unit of pRBC's. Exam Narrative Exam Narrative: General: very pleasant elderly male, A&Ox3, appears mildly short of breath and uncomfortable HEENT: EOMI, MMM Heart: RRR with an occasional extra beat, no m/r/g Lungs: CTAB - no crackles, but breath sounds are diminished at bases GI: abdomen is soft, but distended, + high pitched bowel sounds heard in RUQ Extremities: trace edema in BLE's while wearing TEDs, no c/c. Objective Objective Clinical Data: Abnormal lab results 08/30/19 08/30/19 08/30/19 Range/Units 06:20 06:20 14:26 WBC 15.00 H (4.4-10.8) k/cumm RBC 2.50 L (4.50-6.00) m/cumm Hgb 7.4 L (13.5-17.5) g/dL Hct 24.0 L (40.0-50.0) % MCV 96.0 H (80-95) fL MCHC 30.8 L (32.0-36.0) g/dL RDW 16.1 H (11.8-14.1) % Absolute Neutrophils 13.11 H (1.2-6.7) k/cumm Absolute Lymphocytes 0.86 L (1.2-3.4) k/cumm Absolute Monocytes 0.92 H (0.11-0.7) k/cumm Potassium 3.3 L (3.5-5.1) mmol/L Chloride 108 H (98-107) mmol/L BUN 19 H (7-18) mg/dL Creatinine 1.50 H (0.70-1.30) mg/dL Glucose 131 H (74-106) mg/dL Calcium 7.9 L (8.5-10.1) mg/dL Crossmatch See Detail Vital Signs Temperature 36.7 C 08/30/19 11:30 Temperature Source Tympanic 08/30/19 11:30 Pulse 78 08/30/19 11:30 Pulse Rhythm Regular 08/30/19 00:54 Pulse 97 H 08/28/19 18:50 Respiratory Rate 18 08/30/19 11:30 Respiratory Effort 08/30/19 00:54 Respiratory Depth Normal 08/30/19 00:54 Respiratory Pattern Normal 08/30/19 00:54 Blood Pressure 152/68 H 08/30/19 11:30 Blood Pressure Mean 67 08/28/19 18:46 Blood Pressure Position Sitting 08/28/19 15:49 Pulse Oximetry 98 08/30/19 11:30 Oxygen Delivery Method Room Air 08/30/19 11:30 Oxygen Flow Rate 0 08/30/19 11:30 Pain Level 6 08/30/19 14:32 Comment 08/29/19 09:15 Intake & Output 08/29/19 08/30/19 08/30/19 23:59 11:59 23:59 Intake Total 2297.25 / 4748.250 2043.75 / 2383.75 340 / 2383.75 Output Total 1275 / 1400 550 / 550 Balance 1022.25 / 3348.250 1493.75 / 1833.75 340 / 1833.75 Intake: IV 1657.25 / 4108.250 493.75 / 593.75 100 / 593.75 Oral 640 / 640 1550 / 1790 240 / 1790 Output: Urine 1275 / 1400 550 / 550 Other: Urine Color Dark Jeny [place] Urine Appearance Sediment Cloudy Sediment Stool Occult Blood Negative Stool Size Moderate Stool Characteristics Soft Liquid Brown Laboratory Results WBC 15.00 k/cumm (4.4-10.8) H 08/30/19 06:20 RBC 2.50 m/cumm (4.50-6.00) L 08/30/19 06:20 Hgb 7.4 g/dL (13.5-17.5) L 08/30/19 06:20 Hct 24.0 % (40.0-50.0) L 08/30/19 06:20 MCV 96.0 fL (80-95) H 08/30/19 06:20 MCH 29.6 pg (27.0-33.0) 08/30/19 06:20 MCHC 30.8 g/dL (32.0-36.0) L 08/30/19 06:20 RDW 16.1 % (11.8-14.1) H 08/30/19 06:20 Plt Count 281 x1000/uL (130-400) 08/30/19 06:20 MPV 9.2 fL (8.0-11.0) 08/30/19 06:20 Immature Gran % 0.6 08/30/19 06:20 Neutrophils % 87.4 08/30/19 06:20 Lymphocytes % 5.7 08/30/19 06:20 Monocytes % 6.1 08/30/19 06:20 Eosinophils % 0.2 08/30/19 06:20 Basophils % 0.0 08/30/19 06:20 Absolute Neutrophils 13.11 k/cumm (1.2-6.7) H 08/30/19 06:20 Absolute Lymphocytes 0.86 k/cumm (1.2-3.4) L 08/30/19 06:20 Absolute Monocytes 0.92 k/cumm (0.11-0.7) H 08/30/19 06:20 Absolute Eosinophils 0.03 k/cumm (0.0-0.7) 08/30/19 06:20 Absolute Basophils 0.00 k/cumm (0.0-0.2) 08/30/19 06:20 Differential Comment Diff reviewed 08/28/19 16:15 RBC Morphology See below 08/28/19 16:15 Macrocytosis 1+ 08/28/19 16:15 PT 12.5 sec (9.3-11.0) H 08/28/19 16:15 INR 1.2 (0.9-1.1) H 08/28/19 16:15 Sodium 141 mmol/L (136-145) 08/30/19 06:20 Potassium 3.3 mmol/L (3.5-5.1) L 08/30/19 06:20 Chloride 108 mmol/L (98-107) H 08/30/19 06:20 Carbon Dioxide 23.0 mmol/L (21.0-32.0) 08/30/19 06:20 Anion Gap 10.0 mmol/L (3-11) 08/30/19 06:20 BUN 19 mg/dL (7-18) H 08/30/19 06:20 Creatinine 1.50 mg/dL (0.70-1.30) H 08/30/19 06:20 Estimated GFR/1.73 m2 46.40 (mL/min/1.73m2) 08/30/19 06:20 Glucose 131 mg/dL (74-106) H 08/30/19 06:20 Lactate 1.2 mmol/L (0.6-1.4) 08/29/19 06:35 Calcium 7.9 mg/dL (8.5-10.1) L 08/30/19 06:20 Total Bilirubin 0.5 mg/dL (0.2-1.0) 08/28/19 16:15 AST 23 U/L (15-37) 08/28/19 16:15 ALT 13 U/L (16-63) L 08/28/19 16:15 Alkaline Phosphatase 74 U/L (46-116) 08/28/19 16:15 Troponin I < 0.05 ng/Ml (<0.06) 08/28/19 16:15 NT-Pro-B Natriuret Pep 940 pg/mL (<300) 08/28/19 16:15 Total Protein 7.2 g/dL (6.4-8.2) 08/28/19 16:15 Albumin 2.6 g/dL (3.4-5.0) L 08/28/19 16:15 Procalcitonin 4.3 ng/mL 08/30/19 06:20 Urine Color [place] (Yellow) 08/28/19 16:55 Urine Clarity Cloudy (Clear) 08/28/19 16:55 Urine pH Not Applicable 08/28/19 16:55 Ur Specific [place] 1.022 (1.005-1.025) 08/28/19 16:55 Urine Protein Not Applicable 08/28/19 16:55 Urine Ketones Not Applicable 08/28/19 16:55 Urine Blood Not Applicable 08/28/19 16:55 Urine Nitrite Not Applicable 08/28/19 16:55 Urine Bilirubin Not Applicable 08/28/19 16:55 Urine Urobilinogen Not Applicable 08/28/19 16:55 Ur Leukocyte Esterase Not Applicable 08/28/19 16:55 Urine RBC HPF (0-2) 08/28/19 16:55 Urine WBC HPF (0-5) 08/28/19 16:55 Ur Epithelial Cells Not Applicable 08/28/19 16:55 Urine Crystals Not Applicable 08/28/19 16:55 Urine Bacteria Packed HPF (Negative) 08/28/19 16:55 Urine Mucus Not Applicable 08/28/19 16:55 Ur Culture Indicated? Yes 08/28/19 16:55 Urine Glucose Not Applicable 08/28/19 16:55 Crossmatch See Detail 08/30/19 14:26
[2019-08-30] MEDS: Albuterol 2.5 MG/3 ML INH SOLN VIAL UPD ×2 (14:46→17:23)
--- NOTE | 2019-08-30 15:31 | DI.RAD_ITS ---
EXAM: XR CHEST 2V PA LATERAL INDICATION: worsening shortness of breath. COMPARISON: XR CHEST 2V PA LATERAL from 08/28/2019 TECHNIQUE: 2D digital imaging was performed. FINDINGS: The heart size and pulmonary vasculature are stable and within normal limits. No focal consolidating infiltrates are present. There has been interval development of small bilateral pleural effusions, right greater than left. No pneumothorax is present. There is underlying COPD. Degenerative change s are seen in the spine. IMPRESSION: Development of small bilateral pleural effusions.
--- NOTE | 2019-08-30 15:33 | DI.RAD_ITS ---
EXAM: XR ABDOMEN FLAT UPRIGHT INDICATION: recent SBO, worsening abdominal pain. COMPARISON: No exams were available for comparison TECHNIQUE: 2D digital imaging was performed. FINDINGS: The bowel gas pattern is nonspecific. No dilated loops of bowel are seen. No findings to suggest ob struction. No pneumoperitoneum is present. There is a left nephrostomy and left nephroureteral sten t in place. Age-appropriate degenerative changes are seen in the spine. There is a small right pleu ral effusion present. IMPRESSION: Nonspecific bowel configuration. No dilated loops of bowel present.
[2019-08-30] MEDS: POTASSIUM CHLORIDE/0.9% NACL 1,000 ML 100 MEQ IV (15:58)
[2019-08-30] MEDS: levoFLOXacin 750 MG/150 ML BAG 100 MG IVPB (15:59)
[2019-08-30] MEDS: Normal Saline Flush 10 ML SYR IVP ×2 (16:08→23:27)
--- NOTE | 2019-08-30 16:10 | DI.VRAD_ITS ---
PROCEDURE INFORMATION: Exam: XR Chest, 2 Views Exam date and time: 08/30/2019 2:43 PM Age: 69 years old Clinical history: Fever; Patient HX: Recent sbo TECHNIQUE: Imaging protocol: XR of the chest Views: 2 views. COMPARISON: CR XR CHEST 2V PA LATERAL 08/28/2019 5:35 PM FINDINGS: Lungs: Hyperexpansion and hyperlucency of the lungs consistent with chronic obstructive pulmonary disease. No consolidation. Pleural space: New small right pleural effusion. Heart/Mediastinum: Unremarkable. No cardiomegaly. Bones/joints: No acute bony abnormality. IMPRESSION: New small right pleural effusion. Dictated and Authenticated by: Karissa Collier MD. Ordering:OTTO Donohue MD
--- NOTE | 2019-08-30 16:14 | DI.VRAD_ITS ---
PROCEDURE INFORMATION: Exam: XR Abdomen, 2 Views Exam date and time: 08/30/2019 2:31 PM Age: 69 years old Clinical history: Abdominal tenderness; Abdominal pain; Patient HX: Recent sbo TECHNIQUE: Imaging protocol: XR of the abdomen. Frontal supine and upright views of the abdomen. Views: 2 Views. COMPARISON: US RENAL 08/29/2019 9:35 AM FINDINGS: Tubes, catheters and devices: Left percutaneous nephrostomy and left intraureteral stent. Lower thorax: Small right pleural effusion. Gastrointestinal tract: Gas in normal caliber small bowel loops in the right lower quadrant. Moderate amount of gas in the colon with gradual decreasing amount in the distal colon to the rectum. Mildly differential air-fluid levels in bowel loops in the right abdomen. Intraperitoneal space: Normal. No free air. Bones/joints: Unremarkable for age. IMPRESSION: 1. Nonspecific mildly differential air-fluid levels in bowel loops in the right abdomen. No dilated loops of bowel. 2. Small right pleural effusion. Dictated and Authenticated by: Karissa Collier MD. Ordering:OTTO Donohue MD
--- NOTE | 2019-08-30 17:24 | SCONE_ITS ---
Date of service: 08/30/19 Time of Service: 17:24 Assessment and Plan Assessment and plan (1) Abdominal pain: Status: Acute Assessment and plan: ileus vs SBO awaiting for CT scan repeat stool cultures -if starts vomiting- would place NGT. supportive care Addendum reviewed CT. no SBO/ileus. no acute findings. -test for recurrent campylobacter and C. diff diet as nehemiah poss US of RUE- re: clot supportive care History of Present Illness Narrative: pt Hx reviewed. pt was not having any diarrhea or abdom pain once he got out of [facility]. He has not had any abdominal sx before- other than what he has had for bladder- which has mostly been TURBT's. He did not have any XRT. He was have nausea adn was very distended earlier today. His bowels have moved and he is feeling better. Very liquid stool (as noted on CT). No blood noted. stool sent for cult adn C. diff. pt can have cl liq (He is thirsty now). Slt distention. good BS. no peritonitis. thickening os the wall of the small bowel- incompletely treated infection vs reactive from previous infection. He was on TPN in [facility]. swelling in b/l UE. R>L. 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 Patient also has a history of CHF, HTN, GERD, chronic back pain d/t DDD, spinal stenosis. He was recently hospitalized at [facility] 07/29- 08/08/2019 for SBO/ileus, UTI, dehydration and GAMALIEL associated w/ severe hypotension. He was treated at [facility] ER w/ iv fluids and Zosyn and was tr ansferred to [facility] d/t refractory hypotension in setting of creatinine of 5 and pancytopenia d/t recent chemotherapy (carboplatin and Gemzar). His ileus resolved and his GAMALIEL improved although he has CKD and has a L. nephrostomy. While at [facility] he was treated w/ iv antibiotics for UTI and subsequently was found to have Campylobacter infection in his stools. He required TPN but eventually his ileus/ SBO resolved. He was discharged on 7 day course of Azithromycin for the Campylobacter. He now presents to the ER w/ acute mental status change in setting of fever of 40 C. He has no cough, chest pain, sputum production, abdominal pain. He was seen by EMS this morning d/t his 's concerns over his acute confusion and what was a low grade temperature at the time. However he declined to be brought to the ER. This afternoon he has gotten worse becoming very confused and was tachycardic (129) and tachypneic (RR 36) and febrile 40.2 C but not hypoxemic (SPO2 98%). All systems reviewed & are unremarkable except as noted in HPI and below PFSH Medical History Arthritis of knee Arthritis of shoulder region, left, degenerative Back pain DDD (degenerative disc disease), lumbosacral GERD (gastroesophageal reflux disease) Headache Hx of congestive heart failure (Acute) Systolic CHF Hypertension Metastatic urothelial carcinoma (Acute) Osteoarthritis of spine with radiculopathy, lumbar region Sciatica Spinal stenosis of lumbar region Surgical History History of transurethral destruction of bladder lesion (Acute) TURBT 10/18/18 Hx of nephrostomy (Acute) Percutaneous tube placement L Vasectomy Family History Mother Blood clots in brain Father Heart disease Sister Cancer Sister No problems noted. Sister No problems noted. Sister No problems noted. Sister No problems noted. Brother No problems noted. Brother No problems noted. Brother No problems noted. Brother No problems noted. Brother No problems noted. Daughter No problems noted. Daughter No problems noted. Daughter No problems noted. Social History Smoking/Tobacco Use Status: Current every day Tobacco Type: cigarettes Tobacco: How many years used: 50 Alcohol Intake: never Drug use: Never Substance use type: does not use Do you feel safe at home: Yes Do you feel safe in your relationship?: Yes Exam Const General: cooperative, healthy appearing, comfortable, no acute distress, well developed and well groomed Nutritional Appearance: average body habitus and well nourished Orientation: alert, awake and oriented x3 [facility] Head: normal to inspection, normocephalic and atraumatic Ears: hearing grossly normal bilaterally and external ears normal General nose exam: external nose normal Face and sinus: normal facial exam and sinuses nontender Mouth: oral mucosae normal, lip normal, tongue normal and moist mucous membranes Teeth and gingiva: dentition normal Eyes General: appearance normal, both eyes and all related structures Conjunctivae: conjunctivae normal Sclera: sclerae normal Pupils: PERRL Neck Neck: normal visual inspection and full ROM Chest Chest: normal inspection of the chest Resp Effort & Inspection: normal respiratory effort, able to speak in complete sentences, no cough, no nasal flaring, not tachypneic and no use of accessory muscles Auscultation: clear to auscultation bilaterally, no rales, no rhonchi and no wheezes Cardio Jugular venous pressure: no JVD Rate: regular rate Rhythm: regular rhythm GI Inspection: normal to inspection, no edema and non-distended Palpation: soft, no masses, nontender and No ascites Auscultation: normal bowel sounds Skin General skin exam: no rashes or lesions noted Trauma: no lacerations or abrasions Neuro General: alert, oriented x3, oriented, gait normal, moves all extremities, no focal motor deficits and CN's II-XI intact bilaterally Cognition: normal cognition Speech: speech normal Gait: normal gait Motor: muscle tone normal throughout Extrem General: normal to inspection and full ROM Other: non pitting edema in b/l UE R>L. don't know if pt had CL or PICC in arms in [facility] . Pt albumin is very low. less edema in LE. signs of venous stasis and venous dermatitis in LE Psych Appearance: grossly normal and well kempt Mental Status: mental status grossly normal Speech and Movement: speech and movement normal Affect: normal affect Results Last Vital Signs Temp 36.7 C 08/30/19 11:30 Pulse 78 08/30/19 11:30 Resp 18 08/30/19 11:30 BP 152/68 H 08/30/19 11:30 Pulse Ox 98 08/30/19 11:30 Labs Result diagrams: 08/30/19 06:20 08/30/19 06:20 Labs: Laboratory Results - last 24 hr 08/30/19 08/30/19 08/30/19 06:20 06:20 06:20 WBC 15.00 H RBC 2.50 L Hgb 7.4 L Hct 24.0 L MCV 96.0 H MCH 29.6 MCHC 30.8 L RDW 16.1 H Plt Count 281 MPV 9.2 Immature Gran % 0.6 Neutrophils % 87.4 Lymphocytes % 5.7 Monocytes % 6.1 Eosinophils % 0.2 Basophils % 0.0 Absolute Neutrophils 13.11 H Absolute Lymphocytes 0.86 L Absolute Monocytes 0.92 H Absolute Eosinophils 0.03 Absolute Basophils 0.00 Sodium 141 Potassium 3.3 L Chloride 108 H Carbon Dioxide 23.0 Anion Gap 10.0 BUN 19 H Creatinine 1.50 H Estimated GFR/1.73 m2 46.40 Glucose 131 H Calcium 7.9 L Procalcitonin 4.3 Patient ABO/Rh Antibody Screen Crossmatch 08/30/19 15:11 WBC RBC Hgb Hct MCV MCH MCHC RDW Plt Count MPV Immature Gran % Neutrophils % Lymphocytes % Monocytes % Eosinophils % Basophils % Absolute Neutrophils Absolute Lymphocytes Absolute Monocytes Absolute Eosinophils Absolute Basophils Sodium Potassium Chloride Carbon Dioxide Anion Gap BUN Creatinine Estimated GFR/1.73 m2 Glucose Calcium Procalcitonin Patient ABO/Rh A Positive Antibody Screen Negative Crossmatch See Detail
[2019-08-30] MEDS: Omnipaque 350 MG/ML 50 ML BTL PO (18:36)
[2019-08-30] MEDS: Breeza Beverage 473 ML BTL PO (18:36)
--- NOTE | 2019-08-30 18:37 | DI.CT_ITS ---
EXAM: CT ABDOMEN PELVIS WO CLINICAL HISTORY: abdominal pain, ?SBO. PO contrast only TECHNIQUE: The exam was performed according to the usual protocol with oral contrast only. COMPARISON: CT ABDOMEN PELVIS W from 04/15/2019 CT CHEST/ABD/PEL WO from 07/29/2019 FINDINGS: There are small bilateral pleural effusions, right greater than left. There is a small subjacent inf iltrate in the right lung base. This may represent atelectasis or pneumonia. There are stable hepatic cysts. The gallbladder is mildly distended but unchanged. No biliary ductal dilatation is present. No ston es are present. The pancreas, spleen and adrenal glands are unremarkable. There is a stable right renal cyst. There is a stable nonobstructing calculus in the lower pole of t he right kidney. There is a left percutaneous nephroureterostomy. The appearance of the urinary bladder and seminal vesicles is unchanged. Soft tissue density persist s in the urinary bladder suggestive of a mass. There is increased attenuation in the surrounding soft tissues of the urinary bladder. There does ap pear to be some nodularity within the soft tissue. Findings are suspicious for local metastatic dise ase. There is an enlarged lymph node in the of the pelvis measuring 1.8 centimeters in diameter. There is a stable infrarenal abdominal aortic aneurysm measuring approximately 3.4 centimeters in rhys meter. No pneumoperitoneum is present. The bowel shows no evidence of obstruction. There are subcentimeter filling defects in the lumen of the distal small bowel. This likely reflects ingested material. Polyps or other masses cannot be ex cluded. There appears to be mild thickening of the wall of the small bowel and an inflammatory or in fectious neuritis cannot be excluded. No significant free fluid is seen in the abdomen or pelvis. No findings to suggest acute appendicitis are present. Degenerative changes are seen in the bones. There is L5 spondylolysis and grade 1 spondylolisthesis of L5 on S1. IMPRESSION: 1. Mild thickening of the wall of the small bowel. The findings may reflect an inflammatory or infec tious enteritis. 2. Increased stranding around the urinary bladder with a nodular appearance. Focal metastatic disease cannot be excluded. 3. Left percutaneous nephroureterostomy tube, no hydronephrosis. 4. Stable appearance of the urinary bladder suggesting a persistent bladder mass. 5. Small bilateral pleural effusions with adjacent right basilar atelectasis or pneumonia.
--- NOTE | 2019-08-30 19:33 | DI.VRAD_ITS ---
PROCEDURE INFORMATION: Exam: CT Abdomen And Pelvis Without Contrast Exam date and time: 08/30/2019 4:28 PM Age: 69 years old Clinical history: Other: Abd pain, ? sbo, po contrast only TECHNIQUE: Imaging protocol: Computed tomography of the abdomen and pelvis without contrast. Radiation optimization: All CT scans at this facility use at least one of these dose optimization techniques: automated exposure control; mA and/or kV adjustment per patient size (includes targeted exams where dose is matched to clinical indication); or iterative reconstruction. Other contrast: Route: Oral, Material: Omnipaque 350, Volume: 50; COMPARISON: CT CHEST/ABD/PEL WO 07/29/2019 1:31 PM FINDINGS: Lungs: No airspace infiltrate to indicate pneumonia. Pleural space: Small right pleural effusion with adjacent atelectasis. Liver: Stable hepatic cysts. Gallbladder and bile ducts: Stable gallbladder distention. No stones. No biliary ductal dilation. Pancreas: Unremarkable. No ductal dilation. Spleen: Unremarkable.No splenomegaly. Adrenals: Unremarkable. No mass. Kidneys and ureters: Stable right renal cysts. Nonobstructing 5 mm calcification in the lower right kidney. No hydronephrosis bilaterally. Redemonstrated left percutaneous nephrostomy tube and left ureteral stent. Stomach and bowel: Oral contrast passes through normal caliber small bowel to the distal ileum. No bowel obstruction. Multiple subcentimeter filling defects within the lumen of the distal loops of ileum (best seen on axial series 2 images 56-63). Fluid and semisolid stool in the colon to the rectum; no solid stool. Appendix: No evidence of appendicitis. Intraperitoneal space: Unremarkable. No free air. No significant fluid collection. Vasculature: Stable infrarenal abdominal aortic aneurysm measuring 3.4 cm diameter. Diffuse atherosclerotic calcifications. Lymph nodes: Enlarged left pelvic wall lymph node or mass measuring 1.8 cm (axial series 2 image 66). Bladder: Stable appearance of the urinary bladder which is soft tissue density and consistent with a persistent bladder mass. Increased perivesicular and pelvic fat stranding which has a nodular character and is concerning for regional metastatic disease. Reproductive: Unremarkable as visualized. Bones/joints: Unremarkable. No acute fracture. Soft tissues: Unremarkable. IMPRESSION: 1. No bowel obstruction. Possible gastroenteritis or other diarrhea producing condition. 2. Multiple subcentimeter filling defects within the lumen of the distal loops of ileum may represent ingested material or intraluminal polyps. 3. Small right pleural effusion with adjacent atelectasis. 4. Stable appearance of the urinary bladder which is soft tissue density and consistent with a persistent bladder mass. 5.Increased perivesicular and pelvic fat stranding which has a nodular character and is concerning for regional metastatic disease. 6. Left percutaneous nephrostomy tube and left ureteral stent in stable positions. No hydronephrosis bilaterally. 7. Nonobstructive 5 mm right renal stone. Dictated and Authenticated by: Karissa Collier MD. Ordering:OTTO Donohue MD
[2019-08-30] MEDS: Acetaminophen 325 MG TAB 650 MG PO (19:44)
[2019-08-30] MEDS: diphenhydrAMINE 25 MG CAP PO (19:44)
[2019-08-31] VITALS (9 sets, daily range): BP systolic 150–173; BP diastolic 83–96; PULSE 75–115; RESP 4–20; TEMP 36.1–37.5; O2SAT 97–100
[2019-08-31] MEDS: Acetaminophen 325 MG TAB PO ×3 (00:11→15:57)
[2019-08-31] MEDS: HYDROmorphone 2 MG/ML VIAL 1.5 MG IVP ×2 (00:11→02:41)
[2019-08-31] MEDS: Normal Saline Flush 10 ML SYR IVP ×6 (00:12→15:56)
[2019-08-31] MEDS: HYDROmorphone 2 MG/ML VIAL IVP ×3 (05:56→09:56)
[2019-08-31] MEDS: Gabapentin 300 MG CAP 600 MG PO (05:56)
[2019-08-31] MEDS: LORazepam 1 MG TAB PO (05:56)
[2019-08-31] MEDS: POTASSIUM CHLORIDE/0.9% NACL 1,000 ML 100 MEQ IV (05:58)
[2019-08-31 06:36] LABS: Absolute Basophil Count 0.01 k/cumm (0.0-0.2); Absolute Lymphocyte Count 0.68 k/cumm (1.2-3.4); Absolute Neutrophil Count 8.68 k/cumm (1.2-6.7); Basophils % 0.1; HCT 29.4 % (40.0-50.0); HGB 9.3 g/dL (13.5-17.5); Lymphocytes % 6.5; Mean Corp. HGB Concentration 31.6 g/dL (32.0-36.0); Mean Corpuscular Hemoglobin 29.7 pg (27.0-33.0); Mean Corpuscular Volume 93.9 fL (80-95); Mean Platelet Volume 8.8 fL (8.0-11.0); Monocytes % 8.6; Neutrophils % 82.8; Platelet Count 260 x1000/uL (130-400); RBC 3.13 m/cumm (4.50-6.00); RBC Distribution Width 16.6 % (11.8-14.1); White Blood Cell Count 10.48 k/cumm (4.4-10.8)
[2019-08-31 06:41] LABS: Anion Gap 9.6 mmol/L (3-11); BUN 14 mg/dL (7-18); CO2 23.4 mmol/L (21.0-32.0); CREATININE 1.24 mg/dL (0.70-1.30); Calcium 8.3 mg/dL (8.5-10.1); Chloride 105 mmol/L (98-107); Glucose 92 mg/dL (74-106); Magnesium 1.3 mg/dL (1.8-2.4); Potassium 3.7 mmol/L (3.5-5.1); Sodium 138 mmol/L (136-145)
[2019-08-31] MEDS: Albuterol 2.5 MG/3 ML INH SOLN VIAL UPD (07:38)
[2019-08-31] MEDS: Esomeprazole 40 MG CAPCR PO (09:57)
[2019-08-31] MEDS: Finasteride 5 MG TAB PO (09:57)
[2019-08-31] MEDS: Ascorbic Acid 500 MG TAB 1000 MG PO (09:57)
[2019-08-31] MEDS: Tamsulosin 0.4 MG CAPCR PO (09:57)
[2019-08-31] MEDS: Gabapentin 600 MG TAB PO ×2 (09:58→20:36)
--- NOTE | 2019-08-31 10:02 | DI.RAD_ITS ---
EXAM: XR PORTABLE CHEST AP INDICATION: increased work of breathing. COMPARISON: No exams were available for comparison TECHNIQUE: 2D digital imaging was performed. FINDINGS: The heart size is within normal limits given AP projection. Pulmonary vasculature is within normal l imits. There is atherosclerosis of the thoracic aorta. No focal infiltrates, effusions or pneumotho races are identified. Degenerative changes are seen in the spine. IMPRESSION: No acute pulmonary process.
[2019-08-31] MEDS: Furosemide 20 MG/2 ML VIAL IVP (10:05)
--- NOTE | 2019-08-31 10:23 | DI.VRAD_ITS ---
PROCEDURE INFORMATION: Exam: XR Chest, 1 View Exam date and time: 08/31/2019 9:51 AM Age: 69 years old Clinical history: Other: Incresed difficulty breathing; Patient HX: HX sbo recent TECHNIQUE: Imaging protocol: XR of the chest Views: 1 view. COMPARISON: CR XR CHEST 2V PA LATERAL 08/30/2019 3:31 PM FINDINGS: Lungs: Visualized lungs are grossly clear. Pleural space: No pneumothorax or large profusion seen. Heart/Mediastinum: The cardiac silhouette is normal in size if accounting for projection. Bones/joints: The visualized bones appear grossly intact. Other findings: The study is slightly limited due to rotation. IMPRESSION: No acute findings of the chest Dictated and Authenticated by: Fer Brower MD. Ordering:OTTO Donohue MD
[2019-08-31] MEDS: MAGNESIUM SULFATE 4 GM/100 ML BAG IVPB (10:50)
[2019-08-31] MEDS: predniSONE 20 MG TAB 40 MG PO (10:50)
[2019-08-31] MEDS: oxyCODONE-CR 20 MG TABCR 40 MG PO ×2 (12:12→17:43)
--- NOTE | 2019-08-31 13:38 | W.PM.PROGNOT ---
Date of Service Date of service: 08/31/19 Time of Service: 13:39 Assessment and Plan Assessment and plan (1) Abdominal pain: Status: Acute Assessment and plan: c diff was neg stool cult- pd There does not seem to be any intra-abdominal pathology. No obstructions. no ileus or obstipation. (2) Anemia: Status: Chronic Assessment and plan: from bleeding from the bladder (3) Complicated UTI (urinary tract infection): Status: Acute (4) Bladder cancer: Status: Acute Assessment and plan: reviewed the pt case w/ Dr. Neff. She is going to d/w pt in what direction he wants to take his care. If he wishes to enter hospice- than I would say lets not purse any further work-up at this time. Qualifiers: Bladder location: unspecified site Qualified Code(s): C67.9 - Malignant neoplasm of bladder, unspecified (5) Edema of upper extremity: Status: Acute Subjective Subjective Interval history since last seen: pt still is having liquid stools today. He is able to drink adn keep fluids down. He is still having pain in suprapubic/groin area- I think this is more related to his cancer rather than any abdominal pathology. He is not having any more bleeding. R arm is still swollen- he did have a PICC in this arm when he was in [facility]. I did do a bedside US- The vein was compressible all the way up to the axilla. The does have mets to the lung. I did review the CT of the chest from Jul- there was no clot of signs of compression. Exam Const General: cooperative, healthy appearing, comfortable, no acute distress, well developed and well groomed Nutritional Appearance: average body habitus and well nourished Orientation: alert, awake and oriented x3 [facility] Head: normal to inspection, normocephalic and atraumatic Ears: hearing grossly normal bilaterally and external ears normal General nose exam: external nose normal Face and sinus: normal facial exam and sinuses nontender Mouth: oral mucosae normal, lip normal, tongue normal and moist mucous membranes Teeth and gingiva: dentition normal Eyes General: appearance normal, both eyes and all related structures Conjunctivae: conjunctivae normal Sclera: sclerae normal Pupils: PERRL Neck Neck: normal visual inspection and full ROM Chest Chest: normal inspection of the chest Resp Effort & Inspection: normal respiratory effort, able to speak in complete sentences, no cough, no nasal flaring, not tachypneic and no use of accessory muscles Auscultation: clear to auscultation bilaterally, no rales, no rhonchi and no wheezes Cardio Jugular venous pressure: no JVD Rate: regular rate Rhythm: regular rhythm GI Inspection: normal to inspection, no edema and distended (mild) Palpation: soft, no masses, tender suprapubicly and No ascites Auscultation: normal bowel sounds Skin General skin exam: no rashes or lesions noted Trauma: no lacerations or abrasions Neuro General: alert, oriented x3, oriented, moves all extremities, no focal motor deficits and CN's II-XI intact bilaterally Cognition: normal cognition Speech: speech normal Gait: normal gait Motor: muscle tone normal throughout Extrem General: edema Other: swelling of b/l UE. I didn't see any clot on US today. again LE- show venous stasis and dermatistis Psych Appearance: grossly normal and well kempt Mental Status: mental status grossly normal Speech and Movement: speech and movement normal Affect: normal affect Objective Objective Clinical Data: Abnormal lab results 08/30/19 08/31/19 08/31/19 Range/Units 15:11 06:20 06:20 RBC 3.13 L (4.50-6.00) m/cumm Hgb 9.3 L (13.5-17.5) g/dL Hct 29.4 L D (40.0-50.0) % MCHC 31.6 L (32.0-36.0) g/dL RDW 16.6 H (11.8-14.1) % Absolute Neutrophils 8.68 H (1.2-6.7) k/cumm Absolute Lymphocytes 0.68 L (1.2-3.4) k/cumm Absolute Monocytes 0.90 H (0.11-0.7) k/cumm Calcium 8.3 L (8.5-10.1) mg/dL Magnesium 1.3 L (1.8-2.4) mg/dL Crossmatch See Detail Vital Signs Temperature 37.3 C 08/31/19 11:45 Temperature Source Tympanic 08/31/19 11:45 Pulse 115 H 08/31/19 11:45 Pulse Rhythm Regular 12/01/19 09:10 Pulse 97 H 08/28/19 18:50 Respiratory Rate 18 08/31/19 11:45 Respiratory Effort Incrsd Work of Breathing 08/31/19 09:10 Respiratory Depth Shallow 08/31/19 09:10 Respiratory Pattern Irregular 08/31/19 09:10 Blood Pressure 150/83 H 08/31/19 11:45 Blood Pressure Mean 67 08/28/19 18:46 Blood Pressure Position Sitting 08/28/19 15:49 Pulse Oximetry 98 08/31/19 11:45 Oxygen Delivery Method Room Air 08/31/19 11:45 Oxygen Flow Rate 0 08/31/19 11:45 Pain Level 5 08/31/19 12:12 Comment 08/29/19 09:15 Intake & Output 08/30/19 08/31/19 08/31/19 23:59 11:59 23:59 Intake Total 2741.667 / 4785.417 968.333 / 968.333 Output Total 1600 / 2150 975 / 1400 425 / 1400 Balance 1141.667 / 2635.417 -6.667 / -431.667 -425 / -431.667 Weight 89.6 kg Intake: IV 1646.667 / 2140.417 968.333 / 968.333 Oral 720 / 2270 Blood Product 350 / 350 Rbc Leuko Reduced Unit 350 / 350 [id number] Other 25 / 25 Rbc Leuko Reduced Unit / [id number] Output: Urine 1300 / 1850 975 / 1400 425 / 1400 Stool 300 / 300 Other: Urine Color [place] Pale Yellow Yellow Urine Appearance Sediment Clear Cloudy Comment post lasix, urine still flowing into bag Stool Occult Blood Negative Stool Size Moderate Stool Characteristics Liquid Brown Laboratory Results WBC 10.48 k/cumm (4.4-10.8) D 08/31/19 06:20 RBC 3.13 m/cumm (4.50-6.00) L 08/31/19 06:20 Hgb 9.3 g/dL (13.5-17.5) L 08/31/19 06:20 Hct 29.4 % (40.0-50.0) L D 08/31/19 06:20 MCV 93.9 fL (80-95) 08/31/19 06:20 MCH 29.7 pg (27.0-33.0) 08/31/19 06:20 MCHC 31.6 g/dL (32.0-36.0) L 08/31/19 06:20 RDW 16.6 % (11.8-14.1) H 08/31/19 06:20 Plt Count 260 x1000/uL (130-400) 08/31/19 06:20 MPV 8.8 fL (8.0-11.0) 08/31/19 06:20 Immature Gran % 1.0 08/31/19 06:20 Neutrophils % 82.8 08/31/19 06:20 Lymphocytes % 6.5 08/31/19 06:20 Monocytes % 8.6 08/31/19 06:20 Eosinophils % 1.0 08/31/19 06:20 Basophils % 0.1 08/31/19 06:20 Absolute Neutrophils 8.68 k/cumm (1.2-6.7) H 08/31/19 06:20 Absolute Lymphocytes 0.68 k/cumm (1.2-3.4) L 08/31/19 06:20 Absolute Monocytes 0.90 k/cumm (0.11-0.7) H 08/31/19 06:20 Absolute Eosinophils 0.10 k/cumm (0.0-0.7) 08/31/19 06:20 Absolute Basophils 0.01 k/cumm (0.0-0.2) 08/31/19 06:20 Differential Comment Diff reviewed 08/28/19 16:15 RBC Morphology See below 08/28/19 16:15 Macrocytosis 1+ 08/28/19 16:15 PT 12.5 sec (9.3-11.0) H 08/28/19 16:15 INR 1.2 (0.9-1.1) H 08/28/19 16:15 Sodium 138 mmol/L (136-145) 08/31/19 06:20 Potassium 3.7 mmol/L (3.5-5.1) 08/31/19 06:20 Chloride 105 mmol/L (98-107) 08/31/19 06:20 Carbon Dioxide 23.4 mmol/L (21.0-32.0) 08/31/19 06:20 Anion Gap 9.6 mmol/L (3-11) 08/31/19 06:20 BUN 14 mg/dL (7-18) 08/31/19 06:20 Creatinine 1.24 mg/dL (0.70-1.30) 08/31/19 06:20 Estimated GFR/1.73 m2 57.80 (mL/min/1.73m2) 08/31/19 06:20 Glucose 92 mg/dL (74-106) 08/31/19 06:20 Lactate 1.2 mmol/L (0.6-1.4) 08/29/19 06:35 Calcium 8.3 mg/dL (8.5-10.1) L 08/31/19 06:20 Magnesium 1.3 mg/dL (1.8-2.4) L 08/31/19 06:20 Total Bilirubin 0.5 mg/dL (0.2-1.0) 08/28/19 16:15 AST 23 U/L (15-37) 08/28/19 16:15 ALT 13 U/L (16-63) L 08/28/19 16:15 Alkaline Phosphatase 74 U/L (46-116) 08/28/19 16:15 Troponin I < 0.05 ng/Ml (<0.06) 08/28/19 16:15 NT-Pro-B Natriuret Pep 940 pg/mL (<300) 08/28/19 16:15 Total Protein 7.2 g/dL (6.4-8.2) 08/28/19 16:15 Albumin 2.6 g/dL (3.4-5.0) L 08/28/19 16:15 Procalcitonin 2.0 ng/mL 08/31/19 06:20 Urine Color [place] (Yellow) 08/28/19 16:55 Urine Clarity Cloudy (Clear) 08/28/19 16:55 Urine pH Not Applicable 08/28/19 16:55 Ur Specific [place] 1.022 (1.005-1.025) 08/28/19 16:55 Urine Protein Not Applicable 08/28/19 16:55 Urine Ketones Not Applicable 08/28/19 16:55 Urine Blood Not Applicable 08/28/19 16:55 Urine Nitrite Not Applicable 08/28/19 16:55 Urine Bilirubin Not Applicable 08/28/19 16:55 Urine Urobilinogen Not Applicable 08/28/19 16:55 Ur Leukocyte Esterase Not Applicable 08/28/19 16:55 Urine RBC HPF (0-2) 08/28/19 16:55 Urine WBC HPF (0-5) 08/28/19 16:55 Ur Epithelial Cells Not Applicable 08/28/19 16:55 Urine Crystals Not Applicable 08/28/19 16:55 Urine Bacteria Packed HPF (Negative) 08/28/19 16:55 Urine Mucus Not Applicable 08/28/19 16:55 Ur Culture Indicated? Yes 08/28/19 16:55 Urine Glucose Not Applicable 08/28/19 16:55 Patient ABO/Rh A Positive 08/30/19 15:11 Antibody Screen Negative 08/30/19 15:11 Crossmatch See Detail 08/30/19 15:11
--- NOTE | 2019-08-31 14:56 | PDOC.CMPRO ---
- If Service Date Differs Date of service: 08/31/19 Time of Service: 14:56 Care Management Progress Note S/O:Long remains inpatient at this time he did receive PRC transfusion yesterday. He is not ready for discharge at this time, he has a palliative consult ordered CM will follow up on Sunday. He was hopeful to be discharged however he is not medically ready at this time. Surgery consult r/t abdominal pain on 08/30/19. A: Long is a 69 year old male admitted to [facility] on 08/28/2019 for sepsis with a history of stage 4 bladder cancer, undergoing palliative chemotherapy. P: Long will return home when medically cleared by provider. He will need a new order for Home Health nursing upon discharge and will resume chemotherapy treatments at [facility]. His assorter, Joceline, will transport him home via private vehicle when ready. CM will continue to follow and to support discharge planning needs.
[2019-08-31] MEDS: levoFLOXacin 750 MG/150 ML BAG 100 MG IVPB (15:56)
--- NOTE | 2019-08-31 16:04 | W.PM.PROGNOT ---
Date of Service Date of service: 08/31/19 Time of Service: 15:30 Assessment and Plan Assessment and plan (1) Sepsis: Status: Resolved Assessment and plan: Likely due to a complicated UTI (present on admission), with culture positive for Escherichia hermanii, with evidence of a clogged nephrostomy tube, likely contributing to difficulty clearing the infection. Blood cultures are negative. Mental status normalized. Procalcitonin much better now on levofloxacin day 2. If infectious interitis is also happening, then the highest suspect given recent hx of campylobacter is campylobacter jejunii - and levofloxacin would be treating it as well. . Qualifiers: Sepsis type: sepsis due to unspecified organism Sepsis acute organ dysfunction status: without acute organ dysfunction Qualified Code(s): A41.9 - Sepsis, unspecified organism (2) Complicated UTI (urinary tract infection): Status: Acute Assessment and plan: As above; With evidence of hydronephrosis bilaterally on this admission - this appears better by CT of the abdomen since the L nephrostomy tube was declogged. Will still have urology see the patient tomorrow. S/p complicated UTI with an 8-day admission to [facility], 07/29 through 08/08/2019 (Cx with Campylobacter jejuni). (3) Abdominal pain: Status: Acute Assessment and plan: No evidence of obstruction or ileus, per CT - however, cancer pain is likely. Consult palliative care. I have transitioned the patient to a combination of oxycontin and short acting oxycodone. IV dilaudid used overnight is now d/c'ed. (4) Metabolic encephalopathy: Status: Resolved Assessment and plan: resolved w/ unclogging of the nephrostomy tube/decompression of L kidney and antibiotic therapy. Continue to monitor mental status. (5) Anemia: Status: Chronic Assessment and plan: Acute on chronic, s/p transfusion of 1 unit of pRBC's on 08/30/19. No more hematuria. WIll continue to hold off of further chemical DVT ppx at this time. Etiology: chronic disease, blood loss of hematuria, dilutional - likely all combined. 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 Pt of Dr. Araiza. Palliative care consulted. DNR/DNI. Consulting urology and palliative care. Qualifiers: Bladder location: unspecified site Qualified Code(s): C67.9 - Malignant neoplasm of bladder, unspecified (7) Hypokalemia: Status: Resolved Assessment and plan: Repleted. Recheck in am. (8) DVT prophylaxis: Status: Acute Assessment and plan: TEDs + SCD's. Will hold lovenox due to recent hematuria (9) Discharge planning issues: Status: Acute Assessment and plan: DNR/DNI Palliative care consulted. Hoping to discharge home tomorrow Subjective Subjective Interval history since last seen: States his pain is much better today - since being started on oxycontin. Per nursing, however, he has been sleepy today. Having diarrhea - C. Diff negative; being tested for campylobacter. Denies dizziness, chest pain, shortness of breath, nausea. This morning, was perceived to be fluid overloaded by nursing, received 1 dose of lasix 20 mg IV - put out at least 1 L of urine since. He is not sure that he is ready for hospice yet but is willing to meet with palliative care. He would like to go home tomorrow. Exam Narrative Exam Narrative: General: very pleasant elderly male, A&Ox3, much more comfortable, but appears groggy. HEENT: EOMI, MMM Heart: RRR with an occasional extra beat, no m/r/g Lungs: CTAB - GI: abdomen is soft, but distended, hyperactive bowel sounds, nontender Extremities: no edema BLE's while wearing TEDs, no c/c; RUE edema Objective Objective Clinical Data: Abnormal lab results 08/30/19 08/31/19 08/31/19 Range/Units 15:11 06:20 06:20 RBC 3.13 L (4.50-6.00) m/cumm Hgb 9.3 L (13.5-17.5) g/dL Hct 29.4 L D (40.0-50.0) % MCHC 31.6 L (32.0-36.0) g/dL RDW 16.6 H (11.8-14.1) % Absolute Neutrophils 8.68 H (1.2-6.7) k/cumm Absolute Lymphocytes 0.68 L (1.2-3.4) k/cumm Absolute Monocytes 0.90 H (0.11-0.7) k/cumm Calcium 8.3 L (8.5-10.1) mg/dL Magnesium 1.3 L (1.8-2.4) mg/dL Crossmatch See Detail Vital Signs Temperature 36.3 C L 08/31/19 15:29 Temperature Source Tympanic 08/31/19 15:29 Pulse 85 08/31/19 15:29 Pulse Rhythm Regular 08/31/19 09:10 Pulse 97 H 08/28/19 18:50 Respiratory Rate 18 08/31/19 15:29 Respiratory Effort Incrsd Work of Breathing 08/31/19 09:10 Respiratory Depth Shallow 08/31/19 09:10 Respiratory Pattern Irregular 08/31/19 09:10 Blood Pressure 157/89 H 08/31/19 15:29 Blood Pressure Mean 67 08/28/19 18:46 Blood Pressure Position Sitting 08/28/19 15:49 Pulse Oximetry 97 08/31/19 15:29 Oxygen Delivery Method Room Air 08/31/19 15:29 Oxygen Flow Rate 0 08/31/19 15:29 Pain Level 3 08/31/19 15:57 Comment 08/31/19 13:30 Intake & Output 08/30/19 08/31/19 08/31/19 23:59 11:59 23:59 Intake Total 2741.667 / 4785.417 968.333 / 1688.333 720 / 1688.333 Output Total 1600 / 2150 97 / 0 107 / 2049 Balance 1141.667 / 2635.417 -6.667 / -361.667 -355 / -361.667 Weight 89.6 kg Intake: IV 1646.667 / 2140.417 968.333 / 988.333 20 / 988.333 Oral 720 / 2270 700 / 700 Blood Product 350 / 350 Rbc Leuko Reduced Unit 350 / 350 [id number] Other 25 / 25 Rbc Leuko Reduced Unit / [id number] Output: Urine 1300 / 1850 975 / 0 1075 / 0 Stool 300 / 300 Other: Urine Color [place] Pale Yellow Yellow Urine Appearance Sediment Clear Clear Comment post lasix, urine still flowing into bag Stool Occult Blood Negative Stool Size Moderate Small Stool Characteristics Liquid Liquid Brown Laboratory Results WBC 10.48 k/cumm (4.4-10.8) D 08/31/19 06:20 RBC 3.13 m/cumm (4.50-6.00) L 08/31/19 06:20 Hgb 9.3 g/dL (13.5-17.5) L 08/31/19 06:20 Hct 29.4 % (40.0-50.0) L D 08/31/19 06:20 MCV 93.9 fL (80-95) 08/31/19 06:20 MCH 29.7 pg (27.0-33.0) 08/31/19 06:20 MCHC 31.6 g/dL (32.0-36.0) L 08/31/19 06:20 RDW 16.6 % (11.8-14.1) H 08/31/19 06:20 Plt Count 260 x1000/uL (130-400) 08/31/19 06:20 MPV 8.8 fL (8.0-11.0) 08/31/19 06:20 Immature Gran % 1.0 08/31/19 06:20 Neutrophils % 82.8 08/31/19 06:20 Lymphocytes % 6.5 08/31/19 06:20 Monocytes % 8.6 08/31/19 06:20 Eosinophils % 1.0 08/31/19 06:20 Basophils % 0.1 08/31/19 06:20 Absolute Neutrophils 8.68 k/cumm (1.2-6.7) H 08/31/19 06:20 Absolute Lymphocytes 0.68 k/cumm (1.2-3.4) L 08/31/19 06:20 Absolute Monocytes 0.90 k/cumm (0.11-0.7) H 08/31/19 06:20 Absolute Eosinophils 0.10 k/cumm (0.0-0.7) 08/31/19 06:20 Absolute Basophils 0.01 k/cumm (0.0-0.2) 08/31/19 06:20 Differential Comment Diff reviewed 08/28/19 16:15 RBC Morphology See below 08/28/19 16:15 Macrocytosis 1+ 08/28/19 16:15 PT 12.5 sec (9.3-11.0) H 08/28/19 16:15 INR 1.2 (0.9-1.1) H 08/28/19 16:15 Sodium 138 mmol/L (136-145) 08/31/19 06:20 Potassium 3.7 mmol/L (3.5-5.1) 08/31/19 06:20 Chloride 105 mmol/L (98-107) 08/31/19 06:20 Carbon Dioxide 23.4 mmol/L (21.0-32.0) 08/31/19 06:20 Anion Gap 9.6 mmol/L (3-11) 08/31/19 06:20 BUN 14 mg/dL (7-18) 08/31/19 06:20 Creatinine 1.24 mg/dL (0.70-1.30) 08/31/19 06:20 Estimated GFR/1.73 m2 57.80 (mL/min/1.73m2) 08/31/19 06:20 Glucose 92 mg/dL (74-106) 08/31/19 06:20 Lactate 1.2 mmol/L (0.6-1.4) 08/29/19 06:35 Calcium 8.3 mg/dL (8.5-10.1) L 08/31/19 06:20 Magnesium 1.3 mg/dL (1.8-2.4) L 08/31/19 06:20 Total Bilirubin 0.5 mg/dL (0.2-1.0) 08/28/19 16:15 AST 23 U/L (15-37) 08/28/19 16:15 ALT 13 U/L (16-63) L 08/28/19 16:15 Alkaline Phosphatase 74 U/L (46-116) 08/28/19 16:15 Troponin I < 0.05 ng/Ml (<0.06) 08/28/19 16:15 NT-Pro-B Natriuret Pep 940 pg/mL (<300) 08/28/19 16:15 Total Protein 7.2 g/dL (6.4-8.2) 08/28/19 16:15 Albumin 2.6 g/dL (3.4-5.0) L 08/28/19 16:15 Procalcitonin 2.0 ng/mL 08/31/19 06:20 Urine Color [place] (Yellow) 08/28/19 16:55 Urine Clarity Cloudy (Clear) 08/28/19 16:55 Urine pH Not Applicable 08/28/19 16:55 Ur Specific [place] 1.022 (1.005-1.025) 08/28/19 16:55 Urine Protein Not Applicable 08/28/19 16:55 Urine Ketones Not Applicable 08/28/19 16:55 Urine Blood Not Applicable 08/28/19 16:55 Urine Nitrite Not Applicable 08/28/19 16:55 Urine Bilirubin Not Applicable 08/28/19 16:55 Urine Urobilinogen Not Applicable 08/28/19 16:55 Ur Leukocyte Esterase Not Applicable 08/28/19 16:55 Urine RBC HPF (0-2) 08/28/19 16:55 Urine WBC HPF (0-5) 08/28/19 16:55 Ur Epithelial Cells Not Applicable 08/28/19 16:55 Urine Crystals Not Applicable 08/28/19 16:55 Urine Bacteria Packed HPF (Negative) 08/28/19 16:55 Urine Mucus Not Applicable 08/28/19 16:55 Ur Culture Indicated? Yes 08/28/19 16:55 Urine Glucose Not Applicable 08/28/19 16:55 Patient ABO/Rh A Positive 08/30/19 15:11 Antibody Screen Negative 08/30/19 15:11 Crossmatch See Detail 08/30/19 15:11 CT abdomen/pelvis: 1. Mild thickening of the wall of the small bowel. The findings may reflect an inflammatory or infectious enteritis. 2. Increased stranding around the urinary bladder with a nodular appearance. Focal metastatic disease cannot be excluded. 3. Left percutaneous nephroureterostomy tube, no hydronephrosis. 4. Stable appearance of the urinary bladder suggesting a persistent bladder mass. 5. Small bilateral pleural effusions with adjacent right basilar atelectasis or pneumonia. CXR 08/31/19: No acute findings of the chest
[2019-08-31] MEDS: oxyCODONE 10 MG TAB 20 MG PO ×2 (16:14→22:03)
[2019-09-01] MEDS: oxyCODONE-CR 20 MG TABCR 40 MG PO ×2 (01:47→10:37)
[2019-09-01] MEDS: Acetaminophen 325 MG TAB PO ×2 (03:21→09:47)
[2019-09-01 03:29] VITALS: BP 168/91; PULSE 78; RESP 20; TEMP 36.7; O2SAT 97
[2019-09-01] MEDS: oxyCODONE 10 MG TAB 20 MG PO ×2 (05:58→09:47)
[2019-09-01] MEDS: Normal Saline Flush 10 ML SYR IVP (05:58)
[2019-09-01 07:20] VITALS: BP 149/82; PULSE 77; RESP 19; TEMP 36.3; O2SAT 94
[2019-09-01 07:26] LABS: Abs Immature Grans 0.15 k/cumm (0.0-0.09); Absolute Basophil Count 0.01 k/cumm (0.0-0.2); Absolute Eosinophil Count 0.02 k/cumm (0.0-0.7); Absolute Lymphocyte Count 0.99 k/cumm (1.2-3.4); Absolute Monocyte Count 0.64 k/cumm (0.11-0.7); Basophils % 0.1; Eosinophils % 0.2; HCT 30.8 % (40.0-50.0); HGB 9.8 g/dL (13.5-17.5); Immature Grans % 1.7; Lymphocytes % 11.5; Mean Corp. HGB Concentration 31.8 g/dL (32.0-36.0); Mean Corpuscular Hemoglobin 29.4 pg (27.0-33.0); Mean Corpuscular Volume 92.5 fL (80-95); Mean Platelet Volume 8.9 fL (8.0-11.0); Monocytes % 7.4; Neutrophils % 79.1; Platelet Count 299 x1000/uL (130-400); RBC 3.33 m/cumm (4.50-6.00); RBC Distribution Width 16.2 % (11.8-14.1); White Blood Cell Count 8.61 k/cumm (4.4-10.8)
[2019-09-01 07:42] LABS: Anion Gap 10.4 mmol/L (3-11); BUN 12 mg/dL (7-18); CO2 25.6 mmol/L (21.0-32.0); Calcium 8.7 mg/dL (8.5-10.1); Chloride 104 mmol/L (98-107); Glucose 100 mg/dL (74-106); Magnesium 1.9 mg/dL (1.8-2.4); Potassium 3.5 mmol/L (3.5-5.1); Sodium 140 mmol/L (136-145)
--- NOTE | 2019-09-01 07:54 | W.UROLOGYCON ---
Date of service: 09/01/19 Time of Service: 07:54 Assessment and Plan Assessment and plan (1) Hydronephrosis of left kidney: Status: Resolved Assessment and plan: There is little to do acutely. Typically, nephrostomy tubes are changed by interventional radiology every 3 to 6 months. We will make sure to contact interventional radiology at [facility] so that this gentleman is scheduled for an elective outpatient nephrostomy tube exchange in the next month or 2. History of Present Illness History of Present Illness Chief Complaint: Left hydronephrosis Narrative: This is a 69-year-old gentleman who has received his urology care from Dr. Dawson in [place], [place] and Dr. Miranda in [place], [place]. He has a history of metastatic bladder cancer. He has been treated with systemic chemotherapy and immunotherapy. He has since discontinued his cancer treatments. Back in November 2018, he was found to have an elevated serum creatinine and left hydronephrosis. A left nephrostomy tube was placed by interventional radiology at [facility]. It appears that the nephrostomy tube was last changed on 06/23/2019. I do not see a follow-up tube change scheduled at this point in time. He was admitted to our hospital with mental status changes and concern regarding sepsis. His left nephrostomy tube was not draining very well when it was hooked to a leg bag. When switched to a larger drainage bag, the tube began draining better and the patient began improving clinically. He does have some suprapubic and back pain. He has groin pain. He believes this is related to his cancer diagnosis and in fact these complaints were present when he saw Dr. Miranda in November 2018. He tells me he has no intention of going back on systemic cancer treatments. He is using pain control measures. He tells me that he is not very mobile at home and that he would have no issues using a large drainage bag during the day and at night. Review of Systems Narrative: He denies fevers or chills He has a chronic cough, but no hemoptysis He has no chest pain He has low abdominal pain [facility] Medical History (Updated 09/01/19 @ 12:38 by Jayde Neff MD) Arthritis of knee Arthritis of shoulder region, left, degenerative Back pain Chronic pain due to malignant neoplastic disease (Chronic) DDD (degenerative disc disease), lumbosacral Edema of upper extremity (Chronic) GERD (gastroesophageal reflux disease) Headache Hx of congestive heart failure (Acute) Systolic CHF Hydronephrosis of left kidney (Resolved) Hypertension Metastatic urothelial carcinoma (Acute) Osteoarthritis of spine with radiculopathy, lumbar region Sciatica Spinal stenosis of lumbar region Surgical History History of transurethral destruction of bladder lesion (Acute) TURBT 10/18/18 Hx of nephrostomy (Acute) Percutaneous tube placement L Vasectomy Family History Mother Blood clots in brain Father Heart disease Sister Cancer Sister No problems noted. Sister No problems noted. Sister No problems noted. Sister No problems noted. Brother No problems noted. Brother No problems noted. Brother No problems noted. Brother No problems noted. Brother No problems noted. Daughter No problems noted. Daughter No problems noted. Daughter No problems noted. Social History Smoking/Tobacco Use Status: Current every day Tobacco Type: cigarettes Tobacco: How many years used: 50 Alcohol Intake: never Drug use: Never Substance use type: does not use Do you feel safe at home: Yes Do you feel safe in your relationship?: Yes Exam Narrative Exam Narrative: He is in no acute distress. He is sitting in a chair at his bedside. He appears chronically ill. His vital signs are documented elsewhere The urine draining from the left nephrostomy tube is clear He is awake and alert, and is hoping to go home in the near future. Results Last Vital Signs Temp 36.7 C 09/01/19 03:29 Pulse 78 09/01/19 03:29 Resp 20 09/01/19 03:29 BP 168/91 H 09/01/19 03:29 Pulse Ox 97 09/01/19 03:29 Labs Result diagrams: 09/01/19 07:04 09/01/19 07:04 Labs: Laboratory Results - last 24 hr 09/01/19 09/01/19 07:04 07:04 WBC 8.61 RBC 3.33 L Hgb 9.8 L Hct 30.8 L MCV 92.5 MCH 29.4 MCHC 31.8 L RDW 16.2 H Plt Count 299 MPV 8.9 Immature Gran % 1.7 Neutrophils % 79.1 Lymphocytes % 11.5 Monocytes % 7.4 Eosinophils % 0.2 Basophils % 0.1 Absolute Neutrophils 6.80 H Absolute Lymphocytes 0.99 L Absolute Monocytes 0.64 Absolute Eosinophils 0.02 Absolute Basophils 0.01 Sodium 140 Potassium 3.5 Chloride 104 Carbon Dioxide 25.6 Anion Gap 10.4 BUN 12 Creatinine 1.20 Estimated GFR/1.73 m2 >= 60.00 Glucose 100 Calcium 8.7 Magnesium 1.9
[2019-09-01] MEDS: Ascorbic Acid 500 MG TAB 1000 MG PO (07:57)
[2019-09-01] MEDS: predniSONE 20 MG TAB 40 MG PO (07:58)
[2019-09-01] MEDS: Finasteride 5 MG TAB PO (07:58)
[2019-09-01] MEDS: Tamsulosin 0.4 MG CAPCR PO (07:58)
[2019-09-01] MEDS: Sennosides/Docusate Sodium TAB 2 TAB PO (07:58)
[2019-09-01] MEDS: Gabapentin 600 MG TAB PO (07:59)
[2019-09-01] MEDS: Esomeprazole 40 MG CAPCR PO (07:59)
--- NOTE | 2019-09-01 08:36 | DI.US_ITS ---
EXAM: US UPPER EXTREMITY VENOUS RT CLINICAL HISTORY: swelling r/o clot. TECHNIQUE: Ultrasound examination of the right upper extremity venous system(s) is performed using g rayscale, color-flow, and spectral Doppler analysis. COMPARISON: No exams were available for comparison FINDINGS: The right internal jugular, axillary, subclavian, cephalic, basilic and brachial veins are patent wit hout evidence of thrombosis. IMPRESSION: Right: Negative for DVT.
[2019-09-01 11:12] VITALS: BP 163/82; PULSE 104; RESP 19; TEMP 37.2; O2SAT 96
--- NOTE | 2019-09-01 11:52 | DSE_ITS ---
Date of service: 09/01/19 Time of Service: 11:52 DS: Diagnosis Discharge Diagnosis (1) Sepsis: Status: Resolved (2) Complicated UTI (urinary tract infection): Status: Acute Asessment and Plan: present on admission, culture with Escherichia Hermanii (3) GAMALIEL (acute kidney injury): Status: Resolved (4) Hydronephrosis of left kidney: Status: Resolved Asessment and Plan: Due to obstructed nephrostomy tube (5) Obstructed nephrostomy tube: Status: Resolved (6) Metabolic encephalopathy: Status: Resolved Asessment and Plan: In setting of an acute UTI as well as obstructed nephrostomy tube with hydronephrosis (7) Edema of upper extremity: Status: Chronic Asessment and Plan: DVT ruled out (8) Abdominal pain: Status: Chronic Asessment and Plan: Suspected to be due to cancer (9) Hypokalemia: Status: Resolved (10) Anemia: Status: Chronic Asessment and Plan: s/p transfusion on 1 unit of pRBC's; etiology - acute on chronic due to chronic disease as well as hematuria (11) Bladder cancer: Status: Chronic Asessment and Plan: metastatic (12) Hematuria: Status: Resolved Asessment and Plan: In setting of known bladder cancer (13) Obstructive uropathy: Status: Resolved (14) Chronic pain due to malignant neoplastic disease: Status: Chronic (15) Hypomagnesemia: Status: Resolved (16) Hypokalemia: Status: Resolved Discharge Plan Disposition Patient Disposition: HOME W/HOME HEALTH SERVICE Condition: Stable Discharge Details Chief Complaint: GenMedical Reason For Visit: SEPSIS Admit Date/Time: 08/28/19 19:16 Admit Provider: Otto Griffin Attending Provider: Otto Griffin Primary Care Provider: Delonte Turpin ED Provider: [facility] Hospital Course Hospital Course: Mr Miller is a 69 year old male with PMHx of stage IV bladder cancer with mets to the spine and lung, on palliative chemotherapy, s/p L nephrostomy, as well as chronic pain due to DJD and cancer, on opioid medications, hypertension, GERD, who was admitted to [facility] on 08/28/19 with sepsis due to complicated UTI and toxic metabolic encephalopathy due to same. Both likely were contributed to by obstruction/clogging of the left nephrostomy tube by debris in addition to physical kinking of the nephrostomy tube and the leg bag being too small to accommodate the amount of urine the patient was producing overnight, resulting in hydronephrosis of the left kidney. The patient was initiated on empiric zosyn as well as IVF. His nephrostomy tube was unclogged by nursing without having to be replaced with improvement in urinary output and mental status. Instead of leg bags, we feel it is best that the patient use regular size orozco catheter bags with his nephrostomy tube (2000 cc) on discharge, and this is the recommendation of Dr Velez as well. His blood cultures were negative. His urine C&S grew Escherichia Hermanii as well as gram positive yosvany, sensitive to zosyn and fluoroquinolones. However, the patient had a much better therapeutic response to levofloxacin (he is on day 3/14 of therapy). The patient did develop worsening abdominal pain on 08/30/19. With his history of recent hospitalization at [facility] with an SBO vs ileus and campylobacter infection, acute abdominal series was obtained, showing air fluid levels. CT of the abdomen/pelvis without IV contrast was ordered in follow up. This revealed no SBO or ileus, but did show an infectious/inflammatory enteritis type picture. Coincidentally, he did develop diarrhea. Given the recent campylobacter infection, stool studies were obtained but are still pending (salmonella/shigella/campylobacter). He ruled out for C. Diff. Levofloxacin would be effective against Campylobacter infection, if that were the cause of his diarrhea, and the diarrhea did resolve 24 hours after initiation of levofloxacin. Surgical consultation was also obtained for patient's abdominal pain, and Dr Holliday felt that the pain may, in fact, be due to his cancer. With Dr Holliday's recommendation, we also obtained a RUE venous doppler to rule out a DVT (the patient has periodic swelling in that extremity) - the study was negative. His pain regimen was adjusted - he is now on oxycontin 40 mg PO TID in addition to oxycodone 40 mg PO Q8 hrs; he remains on neurontin 600 mg PO BID. I added prednisone to help with bone pain in setting of metastatic disease as well. He does feel significantly better on this regimen. He is being discharged home today with 11 more days of antibiotics, 3 more days of prednisone and a 5 day supply of his narcotic medications. 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 He is being referred to palliative care with hopes of being seen at home. Dr Velez's office is organizing his follow up with [facility] for nephrostomy tube change within the next month or so. He is medically stable for discharge home today and verbalizes understanding of my instructions. The care for patient on day of discharge as well as preparation of his discharge paperwork took 1 hour. Home Meds and New Rx's Prescriptions: New prednisone 20 mg Tablet 40 mg PO DAILY Qty: 3 RF: 0 oxycodone [OxyContin] 40 mg tablet,oral only,ext.rel.12 hr 40 mg PO Q8H Qty: 15 RF: 0 levofloxacin 750 mg tablet 750 mg PO DAILY Qty: 11 RF: 0 magnesium chloride [Mag 64] 64 mg tablet,delayed release (DR/EC) 64 mg PO DAILY Qty: 30 RF: 0 Continued oxycodone 20 mg Tablet 20 mg PO Q4H PRN PRNRF: 0 acetaminophen [Tylenol] 325 mg Tablet 325 mg PO Q6H PRN PRNRF: 0 phenazopyridine [Pyridium] 100 mg Tablet 100 mg PO TID RF: 0 aspirin [Aspirin Childrens] 81 mg Tablet,Chewable 1 tab PO DAILY RF: 0 sennosides-docusate sodium [Senexon-S] 8.6-50 mg Tablet 1 tab PO BID PRNRF: 0 prochlorperazine maleate 10 mg Tablet 10 mg PO Q6H PRNRF: 0 tamsulosin 0.4 mg Capsule 0.4 mg PO DAILY RF: 0 esomeprazole magnesium 40 mg Capsule,Delayed Release(Dr/Ec) 40 mg PO DAILY RF: 0 albuterol sulfate 90 mcg/actuation Hfa Aerosol Inhaler 2 puff INHALATION QID PRNRF: 0 finasteride 5 mg Tablet 5 mg PO DAILY RF: 0 gabapentin 600 mg Tablet 600 mg PO BID RF: 0 lorazepam 0.5 mg Tablet 0.5 mg PO Q6H PRNRF: 0 Discontinued oxycodone 30 mg Tablet 30 mg PO TID RF: 0 Discharge Instructions Instructions: Prednisone (By mouth), Oxycodone, Rapid Release (By mouth), Levofloxacin (By mouth), Oxycodone, Slow Release (By mouth) Additional Instructions: Finish you antibiotics as prescribed Care Plan Goals: Home with home health nursing, PT, BUILDING INSULATION INSTALLER. Home health to supply urinary catheter bags to be connected to nephrostomy tubing. (Bard 100% latex-free urinary drainage bag with anti-reflux chamber and Bard EZ-Glenda sampling port - 2000 mL bags). Change bags at least Q monthly or more often, as needed. Referrals: Anthony Velez MD [ [facility] STAFF PHYSICIAN] - Delonte Turpin [Primary Care Provider] - Chitra Fulton MD [ [facility] STAFF PHYSICIAN] - Activity:: Activity as Tolerated Equipment/Supplies:: No Equipment Needed Diet:: As Tolerated Discharge Orders Discharge Orders: Discharge Order (Routine); Ordered 09/01/19 Ordered By: Jayde Neff DS: Summary Status at Discharge Functional status at discharge: independent ambulation Overall status at discharge: patient is back to baseline Mental Status: mental status grossly normal Speech and Movement: speech and movement normal Mood: congruent mood Affect: normal affect Exam Narrative Exam Narrative: General: very pleasant elderly male, A&Ox3, much more comfortable, very awake HEENT: EOMI, MMM Heart: RRR, no m/r/g Lungs: CTAB GI: abdomen is soft, not distended, nontender Extremities: +1 BLE edema, no c/c; RUE edema Psych Mental Status: mental status grossly normal Speech and Movement: speech and movement normal Mood: congruent mood Affect: normal affect DS: Data Vitals/I&O Vitals and I&O: Vital Signs Temperature 36.3 C L 09/01/19 07:20 Temperature Source Tympanic 09/01/19 07:20 Pulse 77 09/01/19 07:20 Pulse Rhythm Regular 09/01/19 08:58 Pulse 97 H 08/28/19 18:50 Respiratory Rate 19 09/01/19 07:20 Respiratory Effort Non-Labored 09/01/19 08:58 Respiratory Depth Normal 09/01/19 08:58 Respiratory Pattern Normal 09/01/19 08:58 Blood Pressure 149/82 H 09/01/19 07:20 Blood Pressure Mean 67 08/28/19 18:46 Blood Pressure Position Sitting 08/28/19 15:49 Pulse Oximetry 94 L 09/01/19 07:20 Oxygen Delivery Method Room Air 09/01/19 07:20 Oxygen Flow Rate 0 09/01/19 07:20 Pain Level 5 09/01/19 10:37 Comment 08/31/19 13:30 Intake & Output 08/31/19 08/31/19 09/01/19 11:59 23:59 11:59 Intake Total 968.333 / 2168.333 1200 / 2168.333 460 / 460 Output Total 975 / 2700 1725 / 2700 1500 / 1500 Balance -6.667 / -531.667 -525 / -531.667 -1040 / -1040 Weight 89.6 kg 87.8 kg Intake: IV 968.333 / 988.333 20 / 988.333 10 Oral 1180 / 1180 450 / 450 Output: Urine 975 / 2700 1725 / 2700 1500 / 1500 Other: Urine Color Pale Light Jeny Yellow Yellow Urine Appearance Clear Clear Sediment Comment post lasix, urine still flowing into bag Stool Occult Blood Negative Stool Size Large Stool Characteristics Liquid Data Completed and Pending Completed studies during hospitalization [Text1]: CT head 08/28/19: No evidence of acute intracranial process. CXR 08/28/19: Question patchy bilateral perihilar infiltrates, question nodular appearance of some left perihilar infiltrates, intrapulmonary nodule not excluded. Follow-up PA and lateral chest radiograph requested following treatment and if the findings do not resolve, additional evaluation with chest CT would be recommended. CXR 08/30/19: Development of small bilateral pleural effusions. US renal 08/29/19: Mild to moderate bilateral hydronephrosis. Presumed left ureteral stent in position, please correlate clinically. The ultrasound examination was technically very limited. Follow-up CT may be obtained if clinically indicated. Acute abdominal series 08/30/19: Nonspecific bowel configuration. No dilated loops of bowel present. CT abdomen/pelvis 08/30/19: 1. Mild thickening of the wall of the small bowel. The findings may reflect an inflammatory or infectious enteritis. 2. Increased stranding around the urinary bladder with a nodular appearance. Focal metastatic disease cannot be excluded. 3. Left percutaneous nephroureterostomy tube, no hydronephrosis. 4. Stable appearance of the urinary bladder suggesting a persistent bladder mas s. 5. Small bilateral pleural effusions with adjacent right basilar atelectasis or pneumonia. CXR 08/31/19: No acute pulmonary process. US venous RUE 09/01/19: Right: Negative for DVT. Labs on day of discharge: Labs from last 24 hours 09/01/19 09/01/19 09/01/19 07:04 07:04 07:04 WBC 8.61 RBC 3.33 L Hgb 9.8 L Hct 30.8 L MCV 92.5 MCH 29.4 MCHC 31.8 L RDW 16.2 H Plt Count 299 MPV 8.9 Immature Gran % 1.7 Neutrophils % 79.1 Lymphocytes % 11.5 Monocytes % 7.4 Eosinophils % 0.2 Basophils % 0.1 Absolute Neutrophils 6.80 H Absolute Lymphocytes 0.99 L Absolute Monocytes 0.64 Absolute Eosinophils 0.02 Absolute Basophils 0.01 Sodium 140 Potassium 3.5 Chloride 104 Carbon Dioxide 25.6 Anion Gap 10.4 BUN 12 Creatinine 1.20 Estimated GFR/1.73 m2 >= 60.00 Glucose 100 Calcium 8.7 Magnesium 1.9 Procalcitonin 1.0 Stool Campylobacter PCR Stool Salmonella PCR Stool Shigella PCR Shiga Toxin (PCR) 08/30/19 11:20 WBC RBC Hgb Hct MCV MCH MCHC RDW Plt Count MPV Immature Gran % Neutrophils % Lymphocytes % Monocytes % Eosinophils % Basophils % Absolute Neutrophils Absolute Lymphocytes Absolute Monocytes Absolute Eosinophils Absolute Basophils Sodium Potassium Chloride Carbon Dioxide Anion Gap BUN Creatinine Estimated GFR/1.73 m2 Glucose Calcium Magnesium Procalcitonin Stool Campylobacter PCR Pending Stool Salmonella PCR Pending Stool Shigella PCR Pending Shiga Toxin (PCR) Pending Preliminary micro results at discharge 08/28/19 16:24 Blood Culture - Preliminary Blood NO GROWTH 72 HOURS 08/28/19 16:15 Blood Culture - Preliminary Blood NO GROWTH 72 HOURS [facility] Medical History (Updated 09/01/19 @ 12:38 by Jayde Neff MD) Arthritis of knee Arthritis of shoulder region, left, degenerative Back pain Chronic pain due to malignant neoplastic disease (Chronic) DDD (degenerative disc disease), lumbosacral Edema of upper extremity (Chronic) GERD (gastroesophageal reflux disease) Headache Hx of congestive heart failure (Acute) Systolic CHF Hydronephrosis of left kidney (Resolved) Hypertension Metastatic urothelial carcinoma (Acute) Osteoarthritis of spine with radiculopathy, lumbar region Sciatica Spinal stenosis of lumbar region Surgical History History of transurethral destruction of bladder lesion (Acute) TURBT 10/18/18 Hx of nephrostomy (Acute) Percutaneous tube placement L Vasectomy Family History Mother Blood clots in brain Father Heart disease Sister Cancer Sister No problems noted. Sister No problems noted. Sister No problems noted. Sister No problems noted. Brother No problems noted. Brother No problems noted. Brother No problems noted. Brother No problems noted. Brother No problems noted. Daughter No problems noted. Daughter No problems noted. Daughter No problems noted. Social History Smoking/Tobacco Use Status: Current every day Tobacco Type: cigarettes Tobacco: How many years used: 50 Alcohol Intake: never Drug use: Never Substance use type: does not use Do you feel safe at home: Yes Do you feel safe in your relationship?: Yes
--- NOTE | 2019-09-01 13:03 | PDOC.HHF2F_ITS ---
Home Health Certification Home Health Certification: 1. Encounter Date and Reason I certify that RAFITA HARDEN was seen by Jayde Neff on 09/01/19 and that I had a [id number] encounter with this patient that meets the physician face to face encounter requirements. 2. Clinical Findings Supporting Skilled Need and Homebound Status I certify that home health services are medically necessary, include either intermittent senior living and/or physical/speech therapy, and that this patient is homebound in that absences from the home require considerable and taxing effort and are infrequent or of short duration, or are attributable to the need to receive medical care. [X] (a) Attached documentation from encounter provides clinical findings supporting skilled need and homebound status (including what assistance patient requires to leave the home). The encounter with the patient was in whole, or in part, for the following medical condition, which is the primary reason for home health care: SEPSIS Care Home: patient with metastatic bladder cancer, nephrostomy tube to be connected to the urinary catheter bag (Bard 100% latex-free urinary drainage bag with anti-reflux chamber and Bard EZ-taras sampling port, 2000 cc) - bag to be changed no less than once monthly and sooner if needed; also, bloodwork on 09/03/19 - cbc w/ diff, BMP, magnesium - results to Dr Turpin Physical Therapy: eval and treat [employer] READING TEACHER: assess for services in community which might benefit the patient Homebound: unable to leave home without assistance 3. Certification and Authentication I certify that I composed the above information based on my clinical judgement relating to this patient's medical condition and, if applicable, clinical findings communicated to me by the NPP or inpatient physician who performed the Home Health Referral. All further orders will be obtained through __Dr Turpin (Community Based Physician - PCP)
--- NOTE | 2019-09-01 20:44 | CMDISCH_ITS ---
LACE Index Scoring Tool - Questions: Length of Stay (in days): 4 - 6 Acuity (Admit via E.D.?): Yes Comorbidities: Any Tumor E.D. Visits: 3 - Answers: Total Score: 12 Risk of Readmission: High Risk Care Management Discharge Reason for Hospitalization: Sepsis. Discharge Plan: Long will return home when medically cleared by provider. He will have new orders for VNA RN ant PT as well as ASSISTED SALES REPRESENTATIVE through [facility] upon discharge and will resume chemotherapy treatments at [facility]. His wardrobe manager, Joceline, will transport him home via private vehicle. Patient/Family Education Needs: Review discharge instructions, discuss Ask Me Three. Long expressed excitement at returning home and shared no concerns at this time. Services Needed at Discharge: Home Health Care Services
[2019-09-02 11:39] LABS: Campylobacter PCR Negative (Negative); Salmonella PCR Negative (Negative); Shiga Toxin PCR Negative (Negative); Shigella/Enteroinvasive Ecoli Negative (Negative)
== END 2019-09-01 14:13 | disposition home health service (06) | DRG 871 ==
LOC: ER 17:19 → MS 19:58
PROVIDERS: Family Medicine; Surgery; Admitting Provider Internal Medicine; Emergency Provider Physician Assistant; PCP Family Medicine; Visit Provider Internal Medicine
DX: A41.9 Sepsis, unspecified organism (principal); G92 Toxic encephalopathy; N39.0 Urinary tract infection, site not specified; C79.51 Secondary malignant neoplasm of bone; C78.00 Secondary malignant neoplasm of unspecified lung; Z16.11 Resistance to penicillins; Z16.29 Resistance to other single specified antibiotic; N17.9 Acute kidney failure, unspecified; N13.30 Unspecified hydronephrosis; A09 Infectious gastroenteritis and colitis, unspecified; T83.092A Other mechanical complication of nephrostomy catheter, initial encounter; T83.022A Displacement of nephrostomy catheter, initial encounter; C67.9 Malignant neoplasm of bladder, unspecified; G89.3 Neoplasm related pain (acute) (chronic); B96.89 Other specified bacterial agents as the cause of diseases classified elsewhere; K52.89 Other specified noninfective gastroenteritis and colitis; R60.0 Localized edema; R10.9 Unspecified abdominal pain; D64.9 Anemia, unspecified; R31.9 Hematuria, unspecified; E83.42 Hypomagnesemia; E87.6 Hypokalemia; I10 Essential (primary) hypertension; K21.9 Gastro-esophageal reflux disease without esophagitis; Z79.899 Other long term (current) drug therapy; Z79.891 Long term (current) use of opiate analgesic; F17.210 Nicotine dependence, cigarettes, uncomplicated; Z66 Do not resuscitate; Z87.440 Personal history of urinary (tract) infections
CPT/HCPCS: 36415; 36416; 76770; 80048; 80053; 82962; 84145; 86850; 86900; 86901; 86920; 87040; 87077; 87081; 87449; 87505; 93005; 96361; 96365; 96366; 96367; 99221; 99222; 99223; 99232; 99233; 99239; 99252; 99253; 99285; 70450; 71045; 71046; 74019; 74176; 81003; 81015; 83605; 83735; 83880; 84484; 85014; 85018; 85025; 85610; 87086; 87186; 87324; 93010; 93971; 94640; J0131; J1650; J1720; J1941; J1956; J2543; J3475; J7512; J7613; J7620; P9016; Q9967

== ENCOUNTER 2019-09-02 01:42 | Emergency (ER) | payer MEDICARE, OTHER, SELFPAY ==
[2019-09-02 01:51] VITALS: BP 172/89; PULSE 117; RESP 22; TEMP 36.8; O2SAT 97
--- NOTE | 2019-09-02 01:58 | W.ED.GENAD ---
Discharge Plan Disposition Patient Disposition: HOME Condition: Stable Discharge Details Chief Complaint: Urinary Clinical Impression: Chronic pain due to malignant neoplastic disease, Bladder cancer, Hematuria Primary Care Provider: Delonte Turpin ED Provider: Enco Quezada [place] Meds and New Rx's Prescriptions: Continued oxycodone 20 mg Tablet 20 mg PO Q4H PRN PRNRF: 0 acetaminophen [Tylenol] 325 mg Tablet 325 mg PO Q6H PRN PRNRF: 0 phenazopyridine [Pyridium] 100 mg Tablet 100 mg PO TID RF: 0 aspirin [Aspirin Childrens] 81 mg Tablet,Chewable 1 tab PO DAILY RF: 0 prednisone 20 mg Tablet 40 mg PO DAILY Qty: 3 RF: 0 oxycodone [OxyContin] 40 mg tablet,oral only,ext.rel.12 hr 40 mg PO Q8H Qty: 15 RF: 0 levofloxacin 750 mg tablet 750 mg PO DAILY Qty: 11 RF: 0 magnesium chloride [Mag 64] 64 mg tablet,delayed release (DR/EC) 64 mg PO DAILY Qty: 30 RF: 0 sennosides-docusate sodium [Senexon-S] 8.6-50 mg Tablet 1 tab PO BID PRNRF: 0 prochlorperazine maleate 10 mg Tablet 10 mg PO Q6H PRNRF: 0 tamsulosin 0.4 mg Capsule 0.4 mg PO DAILY RF: 0 esomeprazole magnesium 40 mg Capsule,Delayed Release(Dr/Ec) 40 mg PO DAILY RF: 0 albuterol sulfate 90 mcg/actuation Hfa Aerosol Inhaler 2 puff INHALATION QID PRNRF: 0 finasteride 5 mg Tablet 5 mg PO DAILY RF: 0 gabapentin 600 mg Tablet 600 mg PO BID RF: 0 lorazepam 0.5 mg Tablet 0.5 mg PO Q6H PRNRF: 0 Discharge Instructions Additional Instructions: Resume previous discharge instructions/medications that you have received at hospital discharge. Follow-up with primary care and palliative care. Return to ED for fever, mental status changes, vomiting, worsening or new pain, shortness of breath. Referrals: [facility] [Provider Group] Delonte Turpin [Primary Care Provider] - Medical Decision Making Patient returns with blood in his nephrostomy tube/bag as well as low abdomen/pelvis/perineal pain neither of which is necessarily new. He is not febrile. His abdomen seems firm and distended but is nontender. Reviewing previous abdominal exams including the surgeon's exam from his admission, his abdomen is reported to be soft, mildly distended and nontender. He had 2 CAT scans previously during this admission. Initial one suggested possible ileus versus SBO. Second CT did not show evidence of any distended bowel. Does not appear to have ascites. Does not appear to be distended bladder. His pain is the same type of pain that he is being treated for in regards to his cancer. IV is placed and Dilaudid given. Recheck CBC and chemistry. Because of the significant distention and firmness on abdominal exam with no documentation of same previously we will repeat CT without contrast. Laboratory studies tonight show that his white count has gone up a little to 12.2 but hemoglobin has remained stable at 9.9. BMP shows that BUN and creatinine remain normal. Potassium a little low. CT scan of the abdomen pelvis shows no evidence of obstruction. Stent is in place. Mild hydronephrosis on the right. Everything looks relatively stable compared to previous ultrasound and CAT scans. I have spoke to patient and . I will dose him with OxyContin here as he did not get that medication picked up yet. He was doing reasonably well with pain control inpatient with OxyContin and oxycodone. He has palliative care follow-up being arranged. Will discharge home. Medical Records Medical records reviewed: Yes I reviewed the patient's medical records. Lab Data Lab results reviewed: Yes I reviewed the patient's lab results. HPI General Date/Time Provider Initiated Documentation: 09/02/19 01:50. Limitations to Documentation: no limitations. Information obtained by: patient, family, RN notes reviewed and old records reviewed. HPI Narrative: Patient presents to ED with complaint of blood in his nephrostomy tube as well as increased pain in his perineal area. Both are problems that he has had previously. He was just discharged from the hospital in the afternoon after admission for UTI with sepsis. He has had blood in his nephrostomy tube previously. It cleared up while he was hospitalized. Return since he has been home. The pain that he is having in his pelvis/perineal area is also chronic and related to metastatic bladder cancer for which she is no longer being treated for. He had his pain medicine changed while in the hospital. He has been started on both long-acting narcotic and immediate release narcotics as well as gabapentin. He denies having fever. He denies any nausea/vomiting. He had significant diarrhea while in the hospital but has minimal now. Related Data Home Medications Medication Instructions Recorded Confirmed prochlorperazine maleate 10 mg PO Q6H PRN 01/27/19 09/02/19 sennosides-docusate sodium 1 tab PO BID PRN 01/27/19 09/02/19 [Senexon-S] albuterol sulfate 2 puff INHALATION QID PRN 04/15/19 09/02/19 esomeprazole magnesium 40 mg PO DAILY 04/15/19 09/02/19 finasteride 5 mg PO DAILY 04/15/19 09/02/19 tamsulosin 0.4 mg PO DAILY 04/15/19 09/02/19 gabapentin 600 mg PO BID 07/29/19 09/02/19 lorazepam 0.5 mg PO Q6H PRN 07/29/19 09/02/19 acetaminophen [Tylenol] 325 mg PO Q6H PRN PRN 08/28/19 09/02/19 aspirin [Aspirin Childrens] 1 tab PO DAILY 08/28/19 09/02/19 oxycodone 20 mg PO Q4H PRN PRN 08/28/19 09/02/19 phenazopyridine [Pyridium] 100 mg PO TID 08/28/19 09/02/19 levofloxacin 750 mg PO DAILY #11 tab 09/01/19 09/02/19 magnesium chloride [Mag 64] 64 mg PO DAILY #30 tab 09/01/19 09/02/19 oxycodone [OxyContin] 40 mg PO Q8H #15 tab 09/01/19 09/02/19 prednisone 40 mg PO DAILY #3 tab 09/01/19 09/02/19 Previous Rx's Medication Instructions Recorded levofloxacin 750 mg PO DAILY #11 tab 09/01/19 magnesium chloride [Mag 64] 64 mg PO DAILY #30 tab 09/01/19 oxycodone [OxyContin] 40 mg PO Q8H #15 tab 09/01/19 prednisone 40 mg PO DAILY #3 tab 09/01/19 Allergies Allergy/AdvReac Type Severity Reaction Status Date / Time No Known Allergies Allergy Unverified 08/28/19 17:28 General Stated Complaint: Urinary HELADIO: 3 Review of Systems Narrative: As documented in HPI otherwise negative as below. Const: no fever, chills, weakness Resp: no cough, SOB, pleuritic pain CV: no CP, diaphoresis, edema, syncope GI: abdominal pain, diarrhea; no nausea, vomiting Neuro: no headache, numbness, focal weakness, confusion PFSH Medical History Arthritis of knee Arthritis of shoulder region, left, degenerative Back pain Chronic pain due to malignant neoplastic disease (Chronic) DDD (degenerative disc disease), lumbosacral Edema of upper extremity (Chronic) GERD (gastroesophageal reflux disease) Headache Hx of congestive heart failure (Acute) Systolic CHF Hydronephrosis of left kidney (Resolved) Hypertension Metastatic urothelial carcinoma (Acute) Osteoarthritis of spine with radiculopathy, lumbar region Sciatica Spinal stenosis of lumbar region Surgical History History of transurethral destruction of bladder lesion (Acute) TURBT 10/18/18 Hx of nephrostomy (Acute) Percutaneous tube placement L Vasectomy Social History Smoking/Tobacco Use Status: Current every day Tobacco Type: cigarettes Tobacco: How many years used: 50 Alcohol Intake: never Drug use: Never Substance use type: does not use Do you feel safe at home: Yes Do you feel safe in your relationship?: Yes Exam Narrative Exam Narrative: Vitals: Afebrile. Elevated blood pressure and heart rate but appears uncomfortable. Normal O2 saturation. Const: WDWN elderly male in NAD but uncomfortable. HEENT: NC/AT. Normal facial exam. Eyes: Normal conjunctiva and sclera. Neck: Supple. Trachea midline. Lungs: Normal respiratory effort. Lungs with some scattered wheezes heard. Cor: RRR without murmur/gallop. Good radial pulses. GI: Firm and distended especially in the lower abdomen. Not overly tender in the abdomen. Upper ventral hernia. Back: Left nephrostomy tube in place. Neuro: A+O x 3. CN grossly in tact. Mental status, speech, strength, sensation intact. Ext: No C/C/E. Skin: Warm and dry Course Vital Signs Vital signs: Vital Signs Temperature 98.2 F 09/02/19 01:51 Pulse 117 H 09/02/19 01:51 Respiratory Rate 22 09/02/19 01:51 Blood Pressure 172/89 H 09/02/19 01:51 Pulse Oximetry 97 09/02/19 01:51 Temperature 98.2 F 09/02/19 01:51 Temperature Source Skin 09/02/19 01:51 Pulse 117 H 09/02/19 01:51 Respiratory Rate 22 09/02/19 01:51 Respiratory Effort Accessory Muscle Use 09/02/19 01:56 Blood Pressure 172/89 H 09/02/19 01:51 Blood Pressure Position Sitting 09/02/19 01:51 Pulse Oximetry 97 09/02/19 01:51 Oxygen Delivery Method Room Air 09/02/19 01:51 Oxygen Flow Rate 0 09/02/19 01:51 Pain Level 9 09/02/19 01:56
[2019-09-02] MEDS: HYDROmorphone 2 MG/ML VIAL 1 MG IVP ×2 (02:32→03:09)
--- NOTE | 2019-09-02 02:32 | DI.CT_ITS ---
EXAM: CT ABDOMEN PELVIS WO CLINICAL HISTORY: increase pain/distension of lower abdomen TECHNIQUE: The exam was performed according to the usual protocol without contrast. COMPARISON: CT ABDOMEN PELVIS WO from 08/30/2019 FINDINGS: There has been resolution of the left pleural effusion. There is decrease in size of the right pleur al effusion which is small. There is also significant decrease in the right basilar infiltrate. Since the prior examination, there has developed mild to moderate right hydroureteronephrosis. No ur eteric stone is seen. There is a stable calcification in the lower pole of the right kidney. There is again seen a left percutaneous nephroureterostomy. A left renal cyst is again noted. There is again seen soft tissue within the urinary bladder which may represent a bladder mass. Bladd er clots cannot be excluded. There is again seen mild infiltration in the surrounding urinary bladde r. There is again seen a stone within the left urinary bladder. The urinary bladder shows no evidence of obstruction. No definite inflammatory or infectious process is appreciated. There is a stable 3.4 centimeter abdominal aortic aneurysm. IMPRESSION: 1. Interval improvement of the bilateral pleural effusions and basilar infiltrates. 2. Interval development of right [id number] hydroureteronephrosis. 3. Soft tissue within the urinary bladder is again seen. Bladder mass cannot be excluded. 4. Stable 3.4 centimeter abdominal aortic aneurysm.
[2019-09-02 02:39] LABS: BUN 13 mg/dL (7-18); CREATININE 1.12 mg/dL (0.70-1.30); Calcium 8.8 mg/dL (8.5-10.1); Chloride 101 mmol/L (98-107); Glucose 142 mg/dL (74-106); Potassium 3.2 mmol/L (3.5-5.1); Sodium 137 mmol/L (136-145)
[2019-09-02 02:47] LABS: Abs Immature Grans 0.18 k/cumm (0.0-0.09); Absolute Basophil Count 0.01 k/cumm (0.0-0.2); Absolute Monocyte Count 0.86 k/cumm (0.11-0.7); Basophils % 0.1; Eosinophils % 0.2; HCT 30.9 % (40.0-50.0); HGB 9.9 g/dL (13.5-17.5); Immature Grans % 1.5; Lymphocytes % 10.8; Mean Corpuscular Hemoglobin 29.5 pg (27.0-33.0); Mean Platelet Volume 8.9 fL (8.0-11.0); Monocytes % 7.1; Neutrophils % 80.3; Platelet Count 312 x1000/uL (130-400); RBC 3.36 m/cumm (4.50-6.00); RBC Distribution Width 16.3 % (11.8-14.1); White Blood Cell Count 12.18 k/cumm (4.4-10.8)
[2019-09-02 02:48] LABS: Absolute Eosinophil Count 0.02 k/cumm (0.0-0.7); Absolute Lymphocyte Count 1.32 k/cumm (1.2-3.4); Absolute Neutrophil Count 9.78 k/cumm (1.2-6.7)
[2019-09-02] MEDS: Lactated Ringers 1,000 ML 125 ML IV (02:56)
--- NOTE | 2019-09-02 03:11 | DI.VRAD_ITS ---
PROCEDURE INFORMATION: Exam: CT Abdomen And Pelvis Without Contrast Exam date and time: 09/02/2019 2:40 AM Age: 69 years old Clinical history: Localized; Prior surgery; Surgery date: 6+ months; Patient HX: Severe lower abdominal pain, scrotal pain, blood from nephrostomy, known cancer TECHNIQUE: Imaging protocol: Computed tomography of the abdomen and pelvis without contrast. Radiation optimization: All CT scans at this facility use at least one of these dose optimization techniques: automated exposure control; mA and/or kV adjustment per patient size (includes targeted exams where dose is matched to clinical indication); or iterative reconstruction. COMPARISON: CT ABDOMEN PELVIS WO 08/30/2019 6:37 PM FINDINGS: Small right pleural fluid at and minimal subsegmental atelectasis Liver: Hepatic cysts. Question cirrhosis. Gallbladder and bile ducts: Normal. No calcified stones. No ductal dilation. Pancreas: Normal. No ductal dilation. Spleen: Normal. No splenomegaly. Adrenals: Normal. No mass. Kidneys and ureters: Left percutaneous ureteral stent. Renal cysts noted and linear calcification versus calculus in the right kidney measuring 6 mm. mild to moderate right hydroureteronephrosis Stomach and bowel: No obstruction. No mucosal thickening. Appendix: No evidence of appendicitis. Intraperitoneal space: No free air. No significant fluid collection. Vasculature: 3.3 cm abdominal aortic aneurysm. Lymph nodes: Unremarkable. No enlarged lymph nodes. Bladder: Left-sided calculus measuring 4 mm. Question clots within the urinary bladder and surrounding infiltration around the bladder/minimal fluid Reproductive: Unremarkable as visualized. Bones/joints: Unremarkable. No acute fracture. Soft tissues: Unremarkable. IMPRESSION: Bladder mass and/or clots noted with partially decompressed bladder. Surrounding infiltration is nonspecific. Underlying bladder injury cannot be completely excluded 4 mm calculus in the left side of the bladder. No significant left-sided hydroureteronephrosis or calculi along the course of the ureteral stent Mild to moderate right hydroureteronephrosis 3.3 cm abdominal aortic aneurysm without rupture Small right pleural effusion Dictated and Authenticated by: Miguel Cordon MD. Ordering:ITZEL Stubbs MD
[2019-09-02] MEDS: oxyCODONE-CR 20 MG TABCR 40 MG PO (04:04)
[2019-09-02 04:18] VITALS: BP 177/83; PULSE 94; RESP 18; TEMP 36.6; O2SAT 99
== END 2019-09-02 04:15 | disposition home or self-care (01) ==
PROVIDERS: Emergency Provider Emergency Medicine; PCP Family Medicine
DX: R31.9 Hematuria, unspecified (principal); G89.3 Neoplasm related pain (acute) (chronic); C67.9 Malignant neoplasm of bladder, unspecified; Z93.6 Other artificial openings of urinary tract status; I10 Essential (primary) hypertension
CPT/HCPCS: 36415; 80048; 96361; 96374; 96376; 99284; 74176; 85025

== ENCOUNTER 2019-09-03 12:55 | Outpatient (REF) | payer MEDICARE, OTHER, SELFPAY ==
[2019-09-03 14:37] LABS: Abs Immature Grans 0.28 k/cumm (0.0-0.09); Absolute Lymphocyte Count 0.58 k/cumm (1.2-3.4); Absolute Monocyte Count 0.83 k/cumm (0.11-0.7); Basophils % 0.1; Eosinophils % 0.7; HCT 30.3 % (40.0-50.0); HGB 9.4 g/dL (13.5-17.5); Lymphocytes % 4.1; Mean Corpuscular Hemoglobin 29.4 pg (27.0-33.0); Mean Corpuscular Volume 94.7 fL (80-95); Mean Platelet Volume 9.2 fL (8.0-11.0); Monocytes % 5.9; Neutrophils % 87.2; Platelet Count 270 x1000/uL (130-400); RBC Distribution Width 16.5 % (11.8-14.1); White Blood Cell Count 14.08 k/cumm (4.4-10.8)
[2019-09-03 14:38] LABS: Absolute Basophil Count 0.01 k/cumm (0.0-0.2); Absolute Neutrophil Count 12.28 k/cumm (1.2-6.7)
[2019-09-03 14:51] LABS: Anion Gap 9.8 mmol/L (3-11); BUN 15 mg/dL (7-18); CO2 25.2 mmol/L (21.0-32.0); CREATININE 1.11 mg/dL (0.70-1.30); Calcium 8.4 mg/dL (8.5-10.1); Chloride 102 mmol/L (98-107); Glucose 111 mg/dL (74-106); Magnesium 1.4 mg/dL (1.8-2.4); Potassium 3.8 mmol/L (3.5-5.1); Sodium 137 mmol/L (136-145)
[2019-09-03 15:00] LABS: Diff Comment RBC Morph Reviewed
[2019-09-03 15:01] LABS: Anisocytosis 2+; Hypochromasia 1+; Poikilocytes 1+; Polychromasia Present
== END 2019-09-03 13:15 ==
LOC: LBN 12:55
PROVIDERS: PCP Family Medicine; Visit Provider Family Medicine
DX: N17.9 Acute kidney failure, unspecified (principal)
CPT/HCPCS: 80048; 83735; 85025